=== PATIENT | male | born 1980 | race Caucasian/White ===

== ENCOUNTER 2024-01-26 09:16 | Inpatient (IN) | payer OTHER ==
--- NOTE | 2024-01-26 09:39 | ED ---
Male Urogenital HPI - General Chief complaint: Urogenital Stated complaint: Urogenital Time Seen by Provider: 01/26/24 09:23 Source: patient, RN notes reviewed Mode of arrival: wheelchair Limitations: no limitations - History of Present Illness Initial comments: This is a 43 year old male who presents to the emergency department for urinary symptoms. Reports urgency and burning with urination. He did a telehealth appointment and was started on Bactrim. States that he finished his course of Bactrim 6 days ago. He felt better when he was on the Bactrim, however since finishing it symptoms have gotten much worse. Today when he woke up he had blood in his urine. He has generalized abdominal pain and lower back discomfort. Denies any history of UTIs prior to this one. Denies any history of kidney stones. Denies any fevers/chills or nausea/vomiting. - Related Data Home Medications Medication Instructions Recorded Confirmed No Known Home Medications 01/26/24 01/26/24 Allergies Allergy/AdvReac Type Severity Reaction Status Date / Time No Known Allergies Allergy Verified 01/26/24 11:24 Review of Systems ROS Statement: Those systems with pertinent positive or pertinent negative responses have been documented in the HPI. ROS Other: All systems not noted in ROS Statement are negative. Past Medical History Past Medical History: No Reported History Past Surgical History: No Surgical Hx Reported Smoking Status: Never smoker Past Alcohol Use History: Occasional Past Drug Use History: Marijuana - Past Family History Father Family Medical History: Cancer, Diabetes Mellitus Additional Family Medical History / Comment(s): prostate cancer General Exam Limitations: no limitations General appearance: alert, in no apparent distress Head exam: Present: atraumatic, normocephalic, normal inspection Respiratory exam: Present: normal lung sounds bilaterally. Absent: respiratory distress, wheezes, rales, rhonchi, stridor Cardiovascular Exam: Present: regular rate, normal rhythm, normal heart sounds. Absent: systolic murmur, diastolic murmur, rubs, gallop, clicks GI/Abdominal exam: Present: soft, tenderness (Lower abdomen), normal bowel sounds. Absent: distended Back exam: Present: CVA tenderness (R), CVA tenderness (L) Neurological exam: Present: alert, oriented X3, CN II-XII intact Psychiatric exam: Present: normal affect, normal mood Skin exam: Present: warm, dry, intact, normal color. Absent: rash Course Vital Signs 01/26/24 01/26/24 01/26/24 09:18 10:15 11:15 Temperature 98.4 F 102.9 F H 100.6 F H Pulse Rate 99 103 H Respiratory 20 19 Rate Blood Pressure 136/82 138/79 O2 Sat by Pulse 100 100 Oximetry 01/26/24 13:16 Temperature 98.9 F Pulse Rate 89 Respiratory 18 Rate Blood Pressure 115/77 O2 Sat by Pulse 99 Oximetry Medical Decision Making - Medical Decision Making This is a 43 year old male who presents to the emergency department for urinary symptoms. Was pt. sent in by a medical professional or institution? @ -No Did you speak to anyone other than the patient for history? @ -No Did you review nursing and triage notes? @ -Yes, and I agree, it is accurate with regards to the patient's symptoms. Were old charts reviewed? @ -No Differential Diagnosis? @ -UTI, STI, pyelonephritis, kidney stone, this is not meant to be an all- inclusive list. EKG interpreted by me (3pts min.)? @ -Not obtained X-rays interpreted by me (1pt min.)? @ -Not obtained CT interpreted by me (1pt min.)? @ -CT scan of the abdomen and pelvis obtained. My interpretation identifies no evidence of a ureteral calculus. U/S interpreted by me (1pt. min.)? @ -Not obtained What testing was considered but not performed? (CT, X-rays, U/S, labs)? Why? @ -None What meds were considered but not given? Why? @ -None Did you discuss the management of the patient with other professionals? @ -Yes, Dr. Mark, who accepts the patient for admission Did you reconcile home meds? @ -Yes Was smoking cessation discussed for >3mins.? @ -No Was critical care preformed (if so, how long)? @ -No Were there social determinants of health that impacted care today? How? (H omelessness, low income, unemployed, alcoholism, drug addiction, transportation, low edu. Level, literacy, decrease access to med. care, half-way, rehab)? @ -No Was there de-escalation of care discussed even if they declined? (Discuss DNR or withdrawal of care, Hospice)? @ -No What co-morbidities impacted this encounter? (DM, HTN, Smoking, COPD, CAD, Cancer, CVA, Hep., AIDS, mental health diagnosis, sleep apnea, morbid obesity)? @ -None Was patient admitted / discharged? @ -Admitted. Lab work demonstrates leukocytosis with a white blood cell count of 16.7. Urinalysis consistent with infection and urine was sent for culture. Blood culture ordered as well. Patient febrile with a temperature of 102.[address] scan of the abdomen and pelvis obtained demonstrating concern for gas-forming cystitis/hemorrhagic cystitis. He also has focal wall thickening of the superior left lateral aspect of the urinary bladder. Cystoscopy is recommended to rule out malignancy. No obstructing calculus is identified. Given concern for emphysematous cystitis, patient was admitted to medicine for further management. He was given a 2 L of fluids and started on maintenance IV fluids. 2 g of Rocephin administered. Consult placed for infectious disease and urology. Case discussed with ED attending Dr. Luevano. Undiagnosed new problem with uncertain prognosis? @ -None Drug Therapy requiring intensive monitoring for toxicity (Heparin, Nitro, Insulin, Cardizem)? @ -None Were any procedures done? @ -None Diagnosis/symptom? @ -Emphysematous cystitis Acute, or Chronic, or Acute on Chronic? @ -Acute Uncomplicated (without systemic symptoms) or Complicated (systemic symptoms)? @ -Complicated Side effects of treatment? @ -None Exacerbation, Progression, or Severe Exacerbation] @ -Not applicable Poses a threat to life or bodily function? @ -Yes, can lead to septic shock and - Lab Data Result diagrams: 01/26/24 10:19 01/26/24 10:19 Lab Results 01/26/24 01/26/24 01/26/24 Range/Units 10:19 10:19 10:19 WBC 16.7 H (3.8-10.6) k/uL RBC 4.21 L (4.30-5.90) m/uL Hgb 12.9 L (13.0-17.5) gm/dL Hct 37.7 L (39.0-53.0) % MCV 89.6 (80.0-100.0) fL MCH 30.7 (25.0-35.0) pg MCHC 34.2 (31.0-37.0) g/dL RDW 13.2 (11.5-15.5) % Plt Count 211 (150-450) k/uL MPV 7.6 Neutrophils % 92 % Lymphocytes % 3 % Monocytes % 3 % Eosinophils % 1 % Basophils % 0 % Neutrophils # 15.4 H (1.3-7.7) k/uL Lymphocytes # 0.6 L (1.0-4.8) k/uL Monocytes # 0.5 (0-1.0) k/uL Eosinophils # 0.1 (0-0.7) k/uL Basophils # 0.0 (0-0.2) k/uL Sodium 132 L (137-145) mmol/L Potassium 3.8 (3.5-5.1) mmol/L Chloride 100 (98-107) mmol/L Carbon Dioxide 26 (22-30) mmol/L Anion Gap 6 mmol/L BUN 10 (9-20) mg/dL Creatinine 0.74 (0.66-1.25) mg/dL Est GFR (CKD-EPI)AfAm >90 (>60 ml/min/1.73 sqM) Est GFR (CKD-EPI)NonAf >90 (>60 ml/min/1.73 sqM) Glucose 120 H (74-99) mg/dL Plasma Lactic Acid Hari (0.7-2.0) mmol/L Calcium 9.4 (8.4-10.2) mg/dL Total Bilirubin 1.3 (0.2-1.3) mg/dL AST 26 (17-59) U/L ALT 26 (4-49) U/L Alkaline Phosphatase 71 (38-126) U/L C-Reactive Protein (<1.0) mg/dL Total Protein 7.0 (6.3-8.2) g/dL Albumin 4.1 (3.5-5.0) g/dL Urine Color Yellow Urine Appearance Turbid (Clear) Urine pH 8.5 H (5.0-8.0) Ur Specific [place] 1.021 (1.001-1.035) Urine Protein 3+ H (Negative) Urine Glucose (UA) Negative (Negative) Urine Ketones 3+ H (Negative) Urine Blood Large H (Negative) Urine Nitrite Negative (Negative) Urine Bilirubin Negative (Negative) Urine Urobilinogen <2.0 (<2.0) mg/dL Ur Leukocyte Esterase Large H (Negative) Urine RBC >182 H (0-5) /hpf Urine WBC >182 H (0-5) /hpf Urine WBC Clumps Many H (None) /hpf Urine Bacteria Many H (None) /hpf 01/26/24 01/26/24 Range/Units 10:19 10:19 WBC (3.8-10.6) k/uL RBC (4.30-5.90) m/uL Hgb (13.0-17.5) gm/dL Hct (39.0-53.0) % MCV (80.0-100.0) fL MCH (25.0-35.0) pg MCHC (31.0-37.0) g/dL RDW (11.5-15.5) % Plt Count (150-450) k/uL MPV Neutrophils % % Lymphocytes % % Monocytes % % Eosinophils % % Basophils % % Neutrophils # (1.3-7.7) k/uL Lymphocytes # (1.0-4.8) k/uL Monocytes # (0-1.0) k/uL Eosinophils # (0-0.7) k/uL Basophils # (0-0.2) k/uL Sodium (137-145) mmol/L Potassium (3.5-5.1) mmol/L Chloride (98-107) mmol/L Carbon Dioxide (22-30) mmol/L Anion Gap mmol/L BUN (9-20) mg/dL Creatinine (0.66-1.25) mg/dL Est GFR (CKD-EPI)AfAm (>60 ml/min/1.73 sqM) Est GFR (CKD-EPI)NonAf (>60 ml/min/1.73 sqM) Glucose (74-99) mg/dL Plasma Lactic Acid Hari 1.3 (0.7-2.0) mmol/L Calcium (8.4-10.2) mg/dL Total Bilirubin (0.2-1.3) mg/dL AST (17-59) U/L ALT (4-49) U/L Alkaline Phosphatase (38-126) U/L C-Reactive Protein 8.2 H (<1.0) mg/dL Total Protein (6.3-8.2) g/dL Albumin (3.5-5.0) g/dL Urine Color Urine Appearance (Clear) Urine pH (5.0-8.0) Ur Specific [place] (1.001-1.035) Urine Protein (Negative) Urine Glucose (UA) (Negative) Urine Ketones (Negative) Urine Blood (Negative) Urine Nitrite (Negative) Urine Bilirubin (Negative) Urine Urobilinogen (<2.0) mg/dL Ur Leukocyte Esterase (Negative) Urine RBC (0-5) /hpf Urine WBC (0-5) /hpf Urine WBC Clumps (None) /hpf Urine Bacteria (None) /hpf - Radiology Data Radiology results: report reviewed, image reviewed Disposition Clinical Impression: Emphysematous cystitis Disposition: ADMITTED IP TO THIS HOSP
[2024-01-26] MEDS: SODIUM CHLORIDE 0.9% 1,000 ML IV STA ×3 (10:20→11:13)
[2024-01-26] MEDS: KETOROLAC 15 MG/ML 1 ML VIAL IVP STA (10:21)
[2024-01-26] MEDS: PHENAZOPYRIDINE 200 MG TAB PO STA (10:23)
[2024-01-26] MEDS: ACETAMINOPHEN TAB 500 MG TAB PO STA (10:27)
--- NOTE | 2024-01-26 10:32 | CT ---
EXAMINATION TYPE: CT abdomen pelvis wo con DATE OF EXAM: 01/26/2024 9:54 AM COMPARISON: CT abdomen pelvis most recent from CLINICAL INDICATION: Male, 43 years old with history of flank pain, hematuria; RT FLANK PAIN/GROSS HE MATURIA TECHNIQUE: Axial CT abdomen pelvis wo con;Sagittal and coronal reformats were created on a separate workstation. Contrast used: mL of , (none if empty) Oral contrast used: without Oral Contrast (none if empty) CT DLP: 422 mGycm, Automated exposure control for dose reduction was used. FINDINGS: LOWER CHEST: Unremarkable ABDOMEN LIVER: Unremarkable GALLBLADDER AND BILE DUCTS: Unremarkable. PANCREAS: Unremarkable. SPLEEN: Unremarkable. ADRENAL GLANDS: Unremarkable. KIDNEYS AND URETERS: No evidence of hydronephrosis or renal calculus. The ureters are unremarkable. PELVIS BLADDER: There is gas in the nondependent portion of the bladder lumen with hazy appearance of the bl adder wall and surrounding fat. There is focal thickening of the superior left lateral bladder series 202 image 46r measuring up to 19 mm in thickness and extending approximately 54 mm. REPRODUCTIVE: Unremarkable. ABDOMEN & PELVIS STOMACH AND BOWEL: No evidence of bowel obstruction. The appendix is normal. PERITONEUM/RETROPERITONEUM: No evidence of pneumoperitoneum or free fluid. VASCULATURE: No evidence of aortic aneurysm. MUSCULOSKELETAL: No acute osseous abnormalities LYMPH NODES: No gross evidence for lymphadenopathy. SOFT TISSUE/ABDOMINAL WALL: Unremarkable IMPRESSION: 1. Haziness around the urinary bladder with bladder wall prominence and gas in the bladder lumen. Co rrelate for gas-forming cystitis/hemorrhagic cystitis. 2. Focal wall thickening of the superior left lateral aspect of the urinary bladder series 201 image 46 evaluation cystoscopy recommended to rule out underlying malignancy. 3. Fat stranding changes also around adjacent: The urinary bladder possibly secondary to findings wi thin the urinary bladder. 4. No evidence for obstructing calculus. No significant dilation of the renal collecting systems. 5. Normal-appearing appendix. [facility], , 01/26/2024 10:29 AM
[2024-01-26 10:42] LABS: Basophils % (A) 0 %; Eosinophils # (A) 0.1 k/uL (0-0.7); Eosinophils % (A) 1 %; HCT 37.7 % (39.0-53.0); HGB 12.9 gm/dL (13.0-17.5); Lymphocytes # (A) 0.6 k/uL (1.0-4.8); Lymphocytes % (A) 3 %; MCH 30.7 pg (25.0-35.0); MCHC 34.2 g/dL (31.0-37.0); MCV 89.6 fL (80.0-100.0); Mean Platelet Volume 7.6; Monocytes # (A) 0.5 k/uL (0-1.0); Monocytes % (A) 3 %; Neutrophils # (A) 15.4 k/uL (1.3-7.7); Neutrophils % (A) 92 %; Platelet Count 211 k/uL (150-450); RBC 4.21 m/uL (4.30-5.90); RDW 13.2 % (11.5-15.5); WBC 16.7 k/uL (3.8-10.6)
[2024-01-26 10:57] LABS: ALT 26 U/L (4-49); AST 26 U/L (17-59); African American GFR (CKD) >90 (>60 ml/min/1.73 sqM); Albumin 4.1 g/dL (3.5-5.0); Alkaline Phosphatase 71 U/L (38-126); Anion Gap 6 mmol/L; Blood Urea Nitrogen 10 mg/dL (9-20); Calcium 9.4 mg/dL (8.4-10.2); Carbon Dioxide 26 mmol/L (22-30); Chloride 100 mmol/L (98-107); Glucose 120 mg/dL (74-99); Non-African American GFR(CKD) >90 (>60 ml/min/1.73 sqM); Potassium 3.8 mmol/L (3.5-5.1); Sodium 132 mmol/L (137-145); Total Bilirubin 1.3 mg/dL (0.2-1.3)
[2024-01-26 11:05] LABS: Appearance,Urine Turbid (Clear); Bacteria,Urine Many /hpf; Bilirubin,Urine Negative (Negative); Blood,Urine Large (Negative); Color,Urine Yellow; Glucose,Urine (UA) Negative (Negative); Ketones,Urine 3+ (Negative); Leukocyte Esterase,Urine Large (Negative); Nitrite,Urine Negative (Negative); PH, Urine 8.5 (5.0-8.0); Protein,Urine 3+ (Negative); RBC,Urine >182 /hpf (0-5); Specific Gravity,Urine 1.021 (1.001-1.035); Urobilinogen,Urine <2.0 mg/dL (<2.0); WBC,Urine >182 /hpf (0-5)
[2024-01-26] MEDS ORDERED: NALOXONE 0.4 MG/ML 1 ML VIAL IV PRN (11:16)
--- NOTE | 2024-01-26 13:36 | P.HPIM ---
History of Present Illness H&P Date: 01/26/24 History of present illness; patient is a 43-year-old gentleman with no significant past medical history who presents the ER because of burning pain while urination. Patient states that he was all right 1 month back when he started noticing that he was having increased frequency of urination and burning while peeing. Patient was also noticing increasing odor in his urine. Patient also complained of hematuria. Patient denies any fever or chills at the time. Patient does not have a PCP and did a telemedicine visit at which time he was prescribed Bactrim and completed the course for 1 week. Following that patient stated that for the last 3 days he noticed that once again he was having burning pain while urination. Patient also complaining of hematuria again. There was also complaint of fever and chills at home. There was no complaint of nausea or vomiting. Denies any abdominal pain. There was no complaint of weight loss. Because of these symptoms patient presented the ER Initial lab work done in the ER showed WBC 7.7, hemoglobin 12.9, sodium 132, potassium 3.8, BUN 10, creatinine 0.74, glucose 120, lactate 1.3, AST 26, ALT 26, UA showed large amount of blood, urine WBC greater than 182, large amount leukocyte esterase CT abdominal pelvis done showed haziness around the urinary bladder with bladder wall prominence and gas in the bladder lumen for gas-forming cystitis/hem orrhagic cystitis Patient admitted to internal medicine service REVIEW OF SYSTEMS: CONSTITUTIONAL: As mentioned above HEENT: No recent visual problems or hearing problems. Denied any sore throat. CARDIOVASCULAR: No chest pain, orthopnea, PND, no palpitations, no syncope. PULMONARY: No shortness of breath, no cough, no hemoptysis. GASTROINTESTINAL: No diarrhea, no nausea, no vomiting, no abdominal pain. NEUROLOGICAL: No headaches, no weakness, no numbness. HEMATOLOGICAL: Denies any bleeding or petechiae. GENITOURINARY: As mentioned above MUSCULOSKELETAL/RHEUMATOLOGICAL: Denies any joint pain, swelling, or any muscle pain. ENDOCRINE: Denies any polyuria or polydipsia. The rest of the 14-point review of systems is negative. PHYSICAL EXAMINATION: GENERAL: The patient is alert and oriented x3, not in any acute distress. Well developed, well nourished. HEENT: Pupils are round and equally reacting to light. EOMI. No scleral icterus. No conjunctival pallor. Normocephalic, atraumatic. No pharyngeal erythema. No thyromegaly. CARDIOVASCULAR: S1 and S2 present. No murmurs, rubs, or gallops. PULMONARY: Chest is clear to auscultation, no wheezing or crackles. ABDOMEN: Soft, nontender, nondistended, normoactive bowel sounds. No palpable organomegaly. MUSCULOSKELETAL: No joint swelling or deformity. EXTREMITIES: No cyanosis, clubbing, or pedal edema. NEUROLOGICAL: Gross neurological examination did not reveal any focal deficits. SKIN: No rashes. Assessment and plan Sepsis Acute hemorrhagic cystitis Monitor vital signs Monitor CBC Monitor CMP Ordered blood cultures Ordered urine culture Ordered CRP, ESR, Pro-Girma, Ordered IV fluids Ordered IV Rocephin Consult ID Consult urology Labs and medication were reviewed.. Continue same treatment. Continue with symptomatic treatment. Resume home medication. Monitor labs and vitals. DVT and GI prophylaxis. Further recommendations as per clinical course of the patient Dictation was produced using [employer] dictation software. please excuse any grammatical, word or spelling errors. Past Medical History Past Medical History: No Reported History Past Surgical History: No Surgical Hx Reported Smoking Status: Never smoker Past Alcohol Use History: Occasional Past Drug Use History: Marijuana Medications and Allergies Home Medications Medication Instructions Recorded Confirmed Type No Known Home Medications 01/26/24 01/26/24 History Allergies Allergy/AdvReac Type Severity Reaction Status Date / Time No Known Allergies Allergy Verified 01/26/24 11:24 Physical Exam Vitals: Vital Signs Temp Pulse Resp BP Pulse Ox 01/26/24 13:16 98.9 F 89 18 115/77 99 01/26/24 11:15 100.6 F H 01/26/24 10:15 102.9 F H 103 H 19 138/79 100 01/26/24 09:18 98.4 F 99 20 136/82 100 Intake and Output 01/25/24 01/26/24 01/26/24 22:59 06:59 14:59 Other: Weight 65.771 kg Results CBC & Chem 7: 01/26/24 10:19 01/26/24 10:19 Labs: Abnormal Lab Results - Last 24 Hours (Table) 12/15/24 12/15/24 12/15/24 Range/Units 10:19 10:19 10:19 WBC 16.7 H (3.8-10.6) k/uL RBC 4.21 L (4.30-5.90) m/uL Hgb 12.9 L (13.0-17.5) gm/dL Hct 37.7 L (39.0-53.0) % Neutrophils # 15.4 H (1.3-7.7) k/uL Lymphocytes # 0.6 L (1.0-4.8) k/uL Sodium 132 L (137-145) mmol/L Glucose 120 H (74-99) mg/dL Urine pH 8.5 H (5.0-8.0) Urine Protein 3+ H (Negative) Urine Ketones 3+ H (Negative) Urine Blood Large H (Negative) Ur Leukocyte Esterase Large H (Negative) Urine RBC >182 H (0-5) /hpf Urine WBC >182 H (0-5) /hpf Urine WBC Clumps Many H (None) /hpf Urine Bacteria Many H (None) /hpf
[2024-01-26] MEDS: HYDROcodone/APAP 5-325MG 1 EACH TAB PO PRN (20:09)
[2024-01-26] MEDS: KETOROLAC 15 MG/ML 1 ML VIAL IVP PRN (22:08)
[2024-01-27] MEDS: PANTOPRAZOLE 40 MG/10 ML VIAL IV SCH (08:35)
[2024-01-27 08:49] LABS: ALT 38 U/L (10-49); AST 33 U/L (14-35); Albumin 3.5 g/dL (3.8-4.9); Albumin/Globulin Ratio 1.46 Ratio (1.60-3.17); Alkaline Phosphatase 76 U/L (41-126); BUN/Creat Ratio 11.29 Ratio (12.00-20.00); Blood Urea Nitrogen 7.9 mg/dL (9.0-27.0); Calcium 8.6 mg/dL (8.7-10.3); Carbon Dioxide 22.4 mmol/L (21.6-31.8); Chloride 103 mmol/L (96-109); Globulin 2.4 g/dL (1.6-3.3); Glucose 112 mg/dL (70-110); Sodium 134 mmol/L (135-145); Total Bilirubin 0.8 mg/dL (0.3-1.2); Total Protein 5.9 g/dL (6.2-8.2)
[2024-01-27] MEDS: MORPHINE SULFATE 4 MG/ML SYRINGE IV PRN (08:50)
--- NOTE | 2024-01-27 08:57 | P.CONS ---
History of Present Illness - Reason for Consult Consult date: 01/26/24 Emphysematous cystitis, sepsis Requesting physician: Randy Mark - Chief Complaint Abdominal pain hematuria x 1 day - History of Present Illness Patient is a 43-year-old male with no significant past medical history presenting to the hospital for evaluation of lower abdominal pain and blood in the urine, patient mention he did have symptoms going on with the burning of urination that has been almost for about a month about a week ago he did have a telehealth visit and the patient was started on Bactrim DS which she took for about a week patient mention he completed the Bactrim about 5 days ago and noticed to having increasing pain to the lower abdominal yesterday describes the pain to be mostly sharp moderate intense without radiation he did have a burning of the urine and also develop blood in the urine for the patient presented to the hospital patient on presentation to the hospital did have a temperature of 102.9 F patient was tachycardic but not hypotensive or hypoxic he did have white count of 16.7 with a left shift creatinine 0.74 electrolytes are normal liver enzymes are normal urine has been positive with large leukocyte esterase more than 1-2 WBC cultures are currently pending patient did have a abdominal pelvis CT we did shows haziness around the urinary bladder with bladder wall prominence and gas in the bladder correlate for hemorrhagic cystitis and there was concern for some focal wall thickening of the superior left lateral aspect of the urinary bladder no evidence of any obstructing calculus normal-appearing appendix patient was started on Rocephin infectious disease was consulted for further management of antibiotic therapy Review of Systems Positive point and negatives has been mentioned in the HPI, complete review of systems was performed and all other systems are negative Past Medical History Past Medical History: No Reported History Past Surgical History: No Surgical Hx Reported Smoking Status: Never smoker Past Alcohol Use History: Occasional Past Drug Use History: Marijuana - Past Family History Father Family Medical History: Cancer, Diabetes Mellitus Additional Family Medical History / Comment(s): prostate cancer Medications and Allergies Home Medications Medication Instructions Recorded Confirmed Type HYDROcodone/APAP 5-325MG [[place] 1 tab PO Q6HR PRN 3 Days #12 tab 02/06/24 Rx 5-325] Acetaminophen Tab [Tylenol] 650 mg PO Q6HR PRN tab 02/07/24 Rx Ciprofloxacin HCl [Cipro] 750 mg PO BID 14 Days #28 tab 02/07/24 Rx Metoclopramide HCl [Reglan] 5 mg PO TID #60 tablet 02/07/24 Rx Sennosides [Senokot] 8.6 mg PO BID #60 tab 02/07/24 Rx Simethicone 40 mg/0.6 ml Drops 80 mg PO QID #7 ml 02/07/24 Rx [Mylicon Drops] metroNIDAZOLE [Flagyl] 500 mg PO TID 14 Days #42 tab 02/07/24 Rx Allergies Allergy/AdvReac Type Severity Reaction Status Date / Time No Known Allergies Allergy Verified 01/26/24 11:24 Physical Exam Vitals: Vital Signs Temp Pulse Resp BP Pulse Ox 01/26/24 11:15 100.6 F H 01/26/24 10:15 102.9 F H 103 H 19 138/79 100 01/26/24 09:18 98.4 F 99 20 136/82 100 Intake and Output 01/25/24 01/26/24 01/26/24 22:59 06:59 14:59 Other: Weight 65.771 kg GENERAL DESCRIPTION: Middle-aged male lying in bed, no distress. No tachypnea or accessory muscle of respiration use. HEENT: Shows Pallor , no scleral icterus. Oral mucous membrane is dry. No pharyngeal erythema or thrush NECK: Trachea central, no thyromegaly. LUNGS: Unlabored breathing. Clear to auscultation anteriorly. No wheeze or crackle. HEART: S1, S2, regular rate and rhythm. No loud murmur ABDOMEN: Soft, suprapubic tenderness EXTREMITIES: No edema of feet. SKIN: No rash, no masses palpable. NEUROLOGICAL: The patient is awake, alert, oriented x3, mood and affect normal. Results CBC & Chem 7: 02/07/24 04:09 02/06/24 05:54 Labs: Abnormal Lab Results - Last 24 Hours (Table) 01/26/24 01/26/24 01/26/24 Range/Units 10:19 10:19 10:19 WBC 16.7 H (3.8-10.6) k/uL RBC 4.21 L (4.30-5.90) m/uL Hgb 12.9 L (13.0-17.5) gm/dL Hct 37.7 L (39.0-53.0) % Neutrophils # 15.4 H (1.3-7.7) k/uL Lymphocytes # 0.6 L (1.0-4.8) k/uL Sodium 132 L (137-145) mmol/L Glucose 120 H (74-99) mg/dL Urine pH 8.5 H (5.0-8.0) Urine Protein 3+ H (Negative) Urine Ketones 3+ H (Negative) Urine Blood Large H (Negative) Ur Leukocyte Esterase Large H (Negative) Urine RBC >182 H (0-5) /hpf Urine WBC >182 H (0-5) /hpf Urine WBC Clumps Many H (None) /hpf Urine Bacteria Many H (None) /hpf Assessment and Plan (1) Sepsis Status: Acute Code(s): A41.9 - SEPSIS, UNSPECIFIED ORGANISM SNOMED Code(s): 63130079 (2) Emphysematous cystitis Status: Acute Code(s): N30.80 - OTHER CYSTITIS WITHOUT HEMATURIA SNOMED Code(s): 69272105 Plan: 1patient presented to hospital with sepsis in this patient who did have fever tachycardia elevated white count meeting criteria for SIRS source is emphysematous cystitis and likely from enteric gram-negative pathogen. 2patient will be treated with Rocephin 2 g daily while waiting for the culture to finalize 3await urology evaluation and possible need for cystoscopy on the basis of abnormality seen on the CT We will follow on clinical condition and cultures to further adjust medication if needed Thank you for this consultation we will follow the patient along with you Dictation was produced using [employer] dictation software. please excuse any grammatical, word or spelling errors. Time with Patient: Greater than 30
--- NOTE | 2024-01-27 09:38 | P.GSCN ---
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 He came to the er last night with dysuria and hematuria. He had been on ab , bactrim, for a "uti" treated via telehealth several days ago. He has been off ab for several days. His urine looks inflammed. His wbc at 16k. He is afebrile. His testicles are tender. He has never had a uti or stone before. He has no bowel issues. He had a ct scan that shows air in the bladder. there are no stones. There is no hydronephrosis Review of Systems All systems: negative - Constitutional Denies fever, Denies weight loss - EENT Eyes: denies blurred vision Ears, nose, mouth and throat: Denies dysphagia - Cardiovascular Denies chest pain, Denies shortness of breath - Respiratory Denies cough, Denies 7 - Gastrointestinal Reports as per HPI - Genitourinary Denies dysuria, Denies hematuria - Integumentary Denies rash, Denies unusual bruising - Neurological Denies headaches, Denies syncope - Hematologic/Lymphatic Denies easy bleeding, Denies easy bruising Past Medical History Past Medical History: No Reported History History of Any Multi-Drug Resistant Organisms: None Reported Past Surgical History: No Surgical Hx Reported Past Anesthesia/Blood Transfusion Reactions: No Reported Reaction Additional Past Anesthesia/Blood Transfusion Reaction / Comm: no past surgery or blood transfusion Smoking Status: Never smoker Past Alcohol Use History: Occasional Past Drug Use History: Marijuana - Past Family History Father Family Medical History: Cancer, Diabetes Mellitus Additional Family Medical History / Comment(s): prostate cancer Medications and Allergies Home Medications Medication Instructions Recorded Confirmed Type No Known Home Medications 01/26/24 01/26/24 History Allergies Allergy/AdvReac Type Severity Reaction Status Date / Time No Known Allergies Allergy Verified 01/26/24 11:24 Surgical - Exam Vital Signs Temp Pulse Resp BP Pulse Ox 98.4 F 99 20 136/82 100 01/26/24 09:18 01/26/24 09:18 01/26/24 09:18 01/26/24 09:18 01/26/24 09:18 - General well developed, well nourished, no distress - Eyes normal ocular movement, no icteric - ENT no hearing loss, no congestion - Neck no masses, trachea midline - Respiratory normal respiratory effort, clear to auscultation - Abdomen Abdomen: soft, non tender, no guarding, no rigid, no rebound - Genitourinary bilateral epididymal induration and tenderness - Integumentary no rash, no abnormal pigmentation - Neurologic no disoriented, no combative - Psychiatric oriented to time, oriented to person, oriented to place, speech is normal, memory intact Results - Labs 01/26/24 10:19 01/27/24 05:23 Abnormal Lab Results - Last 24 Hours (Table) 01/26/24 01/26/24 01/26/24 Range/Units 10:19 10:19 10:19 WBC 16.7 H (3.8-10.6) k/uL RBC 4.21 L (4.30-5.90) m/uL Hgb 12.9 L (13.0-17.5) gm/dL Hct 37.7 L (39.0-53.0) % Neutrophils # 15.4 H (1.3-7.7) k/uL Lymphocytes # 0.6 L (1.0-4.8) k/uL ESR (0-15) mm/Hr Sodium 132 L (137-145) mmol/L Glucose 120 H (74-99) mg/dL C-Reactive Protein (<1.0) mg/dL Urine pH 8.5 H (5.0-8.0) Urine Protein 3+ H (Negative) Urine Ketones 3+ H (Negative) Urine Blood Large H (Negative) Ur Leukocyte Esterase Large H (Negative) Urine RBC >182 H (0-5) /hpf Urine WBC >182 H (0-5) /hpf Urine WBC Clumps Many H (None) /hpf Urine Bacteria Many H (None) /hpf 01/26/24 01/26/24 Range/Units 10:19 10:19 WBC (3.8-10.6) k/uL RBC (4.30-5.90) m/uL Hgb (13.0-17.5) gm/dL Hct (39.0-53.0) % Neutrophils # (1.3-7.7) k/uL Lymphocytes # (1.0-4.8) k/uL ESR 27 H (0-15) mm/Hr Sodium (137-145) mmol/L Glucose (74-99) mg/dL C-Reactive Protein 8.2 H (<1.0) mg/dL Urine pH (5.0-8.0) Urine Protein (Negative) Urine Ketones (Negative) Urine Blood (Negative) Ur Leukocyte Esterase (Negative) Urine RBC (0-5) /hpf Urine WBC (0-5) /hpf Urine WBC Clumps (None) /hpf Urine Bacteria (None) /hpf Diabetes panel 01/26/24 Range/Units 10:19 Sodium 132 L (137-145) mmol/L Potassium 3.8 (3.5-5.1) mmol/L Chloride 100 (98-107) mmol/L Carbon Dioxide 26 (22-30) mmol/L BUN 10 (9-20) mg/dL Creatinine 0.74 (0.66-1.25) mg/dL Glucose 120 H (74-99) mg/dL Calcium 9.4 (8.4-10.2) mg/dL AST 26 (17-59) U/L ALT 26 (4-49) U/L Alkaline Phosphatase 71 (38-126) U/L Total Protein 7.0 (6.3-8.2) g/dL Albumin 4.1 (3.5-5.0) g/dL Calcium panel 01/26/24 Range/Units 10:19 Calcium 9.4 (8.4-10.2) mg/dL Albumin 4.1 (3.5-5.0) g/dL Pituitary panel 01/26/24 Range/Units 10:19 Sodium 132 L (137-145) mmol/L Potassium 3.8 (3.5-5.1) mmol/L Chloride 100 (98-107) mmol/L Carbon Dioxide 26 (22-30) mmol/L BUN 10 (9-20) mg/dL Creatinine 0.74 (0.66-1.25) mg/dL Glucose 120 H (74-99) mg/dL Calcium 9.4 (8.4-10.2) mg/dL Adrenal panel 01/26/24 Range/Units 10:19 Sodium 132 L (137-145) mmol/L Potassium 3.8 (3.5-5.1) mmol/L Chloride 100 (98-107) mmol/L Carbon Dioxide 26 (22-30) mmol/L BUN 10 (9-20) mg/dL Creatinine 0.74 (0.66-1.25) mg/dL Glucose 120 H (74-99) mg/dL Calcium 9.4 (8.4-10.2) mg/dL Total Bilirubin 1.3 (0.2-1.3) mg/dL AST 26 (17-59) U/L ALT 26 (4-49) U/L Alkaline Phosphatase 71 (38-126) U/L Total Protein 7.0 (6.3-8.2) g/dL Albumin 4.1 (3.5-5.0) g/dL - Imaging CT scan - abdomen: report reviewed, image reviewed CT scan - pelvis: report reviewed, image reviewed Assessment and Plan Assessment: Impression: hemorrhagic cystitis, emphysematous cystitis. probable acute prostatitis and bilateral epididymitis. Recommedations. THe patient should be on ab for at lest 1 mos. He will need cysto as an op as the future. He also should have a gi evaluation with possible colonoscopy in the future. He should have ice to the testicles with scrotal support. I will follow Time with Patient: Greater than 30
[2024-01-27 10:32] LABS: HCT 34.5 % (39.6-50.0); HGB 11.4 g/dL (13.0-17.0); MCH 30.2 pg (27.0-32.0); MCV 91.3 FL (80.0-97.0); Mean Platelet Volume 10.9 FL (9.5-12.2); NRBC Per 100 WBC 0 X 10*3/uL (0.00-0.01); Platelet Count 171 X 10*3/uL (140-440); RBC 3.78 X 10*6/uL (4.40-5.60); RDW 12.9 % (11.5-14.5); WBC 15.76 X 10*3/uL (4.50-10.00)
[2024-01-27] MEDS: IBUPROFEN 400 MG TAB PO PRN (13:12)
[2024-01-27 16:57] VITALS: BMI 22.0
--- NOTE | 2024-01-27 21:01 | P.PN ---
Subjective Progress Note Date: 01/27/24 Principal diagnosis: Reason for follow-up is sepsis/UTI Patient is a 43-year-old male with no significant past medical history presenting to the hospital for evaluation of lower abdominal pain and blood in the urine, patient mention he did have symptoms going on with the burning of urination that has been almost for about a month with acute worsening over a day or 2 before presented to the hospital abdominal pain and hematuria patient was noted to be septic secondary to urinary source. On today's evaluation that is 01/27/2024, patient did have resolution of his f ever and patient has been afebrile this morning, patient is breathing comfortably and is currently on room air, patient denies having any significant cough no chest pain, patient denies nausea vomiting or diarrhea lower abdominal pain slightly decreased no further hematuria. Patient white count is 15.76 creatinine 0.7 cultures are currently pending Objective - Vital Signs Vital signs: Vital Signs Temp 98.4 F 01/27/24 07:47 Pulse 101 H 01/27/24 07:47 Resp 17 01/27/24 07:47 BP 132/69 01/27/24 07:47 Pulse Ox 98 01/27/24 07:47 FiO2 Intake & Output 01/26/24 01/27/24 01/27/24 18:59 06:59 18:59 Intake Total 390 Output Total 150 Balance 390 -150 Weight 65.771 kg Intake: Intake, IV Titration 390 Amount Sodium Chloride 0.9% 1, 390 000 ml @ 130 mls/hr IV . Q7H42M STA Rx#:[id number] Output: Urine 150 Other: Voiding Method Toilet Toilet Urinal Urinal - Exam GENERAL DESCRIPTION: Middle-age male lying in bed in no distress RESPIRATORY SYSTEM: Unlabored breathing , decreased breath sounds at bases HEART: S1 S2 regular rate and rhythm , ABDOMEN: Soft , mild lower abdominal tenderness EXTREMITIES: No edema feet - Labs CBC & Chem 7: 01/27/24 05:23 01/27/24 05:23 Labs: Abnormal Lab Results - Last 24 Hours (Table) 01/26/24 01/26/24 01/26/24 Range/Units 10:19 10:19 10:19 WBC (4.50-10.00) X 10*3/uL RBC (4.40-5.60) X 10*6/uL Hgb (13.0-17.0) g/dL Hct (39.6-50.0) % ESR 27 H (0-15) mm/Hr Sodium (135-145) mmol/L BUN (9.0-27.0) mg/dL BUN/Creatinine Ratio (12.00-20.00) Ratio Glucose (70-110) mg/dL Calcium (8.7-10.3) mg/dL C-Reactive Protein 8.2 H (<1.0) mg/dL Total Protein (6.2-8.2) g/dL Albumin (3.8-4.9) g/dL Albumin/Globulin Ratio (1.60-3.17) Ratio Urine pH 8.5 H (5.0-8.0) Urine Protein 3+ H (Negative) Urine Ketones 3+ H (Negative) Urine Blood Large H (Negative) Ur Leukocyte Esterase Large H (Negative) Urine RBC >182 H (0-5) /hpf Urine WBC >182 H (0-5) /hpf Urine WBC Clumps Many H (None) /hpf Urine Bacteria Many H (None) /hpf 01/27/24 01/27/24 Range/Units 05:23 05:23 WBC 15.76 H (4.50-10.00) X 10*3/uL RBC 3.78 L (4.40-5.60) X 10*6/uL Hgb 11.4 L (13.0-17.0) g/dL Hct 34.5 L (39.6-50.0) % ESR (0-15) mm/Hr Sodium 134 L (135-145) mmol/L BUN 7.9 L (9.0-27.0) mg/dL BUN/Creatinine Ratio 11.29 L (12.00-20.00) Ratio Glucose 112 H (70-110) mg/dL Calcium 8.6 L (8.7-10.3) mg/dL C-Reactive Protein (<1.0) mg/dL Total Protein 5.9 L (6.2-8.2) g/dL Albumin 3.5 L (3.8-4.9) g/dL Albumin/Globulin Ratio 1.46 L (1.60-3.17) Ratio Urine pH (5.0-8.0) Urine Protein (Negative) Urine Ketones (Negative) Urine Blood (Negative) Ur Leukocyte Esterase (Negative) Urine RBC (0-5) /hpf Urine WBC (0-5) /hpf Urine WBC Clumps (None) /hpf Urine Bacteria (None) /hpf Assessment and Plan (1) Sepsis Current Visit: Yes Status: Acute Code(s): A41.9 - SEPSIS, UNSPECIFIED ORGANISM SNOMED Code(s): 95065894 (2) Emphysematous cystitis Current Visit: Yes Status: Acute Code(s): N30.80 - OTHER CYSTITIS WITHOUT HEMATURIA SNOMED Code(s): 25781647 Plan: 1patient presented to hospital with sepsis in this patient who did have fever tachycardia elevated white count meeting criteria for SIRS source is emphysematous cystitis and likely from enteric gram-negative pathogen. 2patient did have improvement in his fever pattern white count slightly trending down cultures are currently pending will continue the patient on Rocephin while waiting for the culture to finalize at the bedside multiple questions answered Dictation was produced using [employer] dictation software. please excuse any grammatical, word or spelling errors. Time with Patient: Less than 30
[2024-01-28] MEDS: ONDANSETRON 4 MG/2 ML VIAL IVP PRN (04:00)
[2024-01-28] MEDS: ALPRAZolam 0.25 MG TAB PO PRN (04:00)
[2024-01-28] MEDS: SODIUM CHLORIDE 0.9% 1,000 ML IV SCH (04:00)
--- NOTE | 2024-01-28 06:12 | P.PN ---
Subjective Progress Note Date: 01/27/24 History of present illness; patient is a 43-year-old gentleman with no significant past medical history who presents the ER because of burning pain while urination. Patient states that he was all right 1 month back when he started noticing that he was having increased frequency of urination and burning while peeing. Patient was also noticing increasing odor in his urine. Patient also complained of hematuria. Patient denies any fever or chills at the time. Patient does not have a PCP and did a telemedicine visit at which time he was prescribed Bactrim and completed the course for 1 week. Following that patient stated that for the last 3 days he noticed that once again he was having burning pain while urination. Patient also complaining of hematuria again. There was also complaint of fever and chills at home. There was no complaint of nausea or vomiting. Denies any abdominal pain. There was no complaint of weight loss. Because of these symptoms patient presented the ER Initial lab work done in the ER showed WBC 7.7, hemoglobin 12.9, sodium 132, potassium 3.8, BUN 10, creatinine 0.74, glucose 120, lactate 1.3, AST 26, ALT 26, UA showed large amount of blood, urine WBC greater than 182, large amount leukocyte esterase CT abdominal pelvis done showed haziness around the urinary bladder with bladder wall prominence and gas in the bladder lumen for gas-forming cystitis/hemorrh agic cystitis Patient admitted to internal medicine service 01/27/2024 Patient is admitted and seen in follow-up this morning continues with significant testicular pain and swelling with redness with urology and infectious disease following. Preliminary culture showing gram-negative bacilli and awaiting finalized cultures to determine discharge antibiotics. Patient to continue with icing the scrotal area and elevating as well as current pain regimen. Monitor for any fevers as patient has been continuously having low- grade temps. Will continue current regimen and await finalized cultures. Patient does not currently have a primary care provider as he is new to the area and will provide resources on discharge. Review of systems: Constitutional: No reports of fatigue, low-grade fever, occasional chills Cardiovascular: No reports of chest pain or palpitations Respiratory: No reports of shortness of breath or cough GI: No reports of nausea, vomiting, or diarrhea : No reports of dysuria or retention Neurovascular: No reports of weakness or numbness All medications have been reviewed PHYSICAL EXAMINATION: GENERAL: The patient is alert and oriented x3, not in any acute distress. Well developed, well nourished. HEENT: Pupils are round and equally reacting to light. EOMI. No scleral icterus. No conjunctival pallor. Normocephalic, atraumatic. No pharyngeal erythema. No thyromegaly. CARDIOVASCULAR: S1 and S2 present. No murmurs, rubs, or gallops. PULMONARY: Chest is clear to auscultation, no wheezing or crackles. ABDOMEN: Soft, nontender, nondistended, normoactive bowel sounds. No palpable organomegaly. MUSCULOSKELETAL: No joint swelling or deformity. EXTREMITIES: No cyanosis, clubbing, or pedal edema. NEUROLOGICAL: Gross neurological examination did not reveal any focal deficits. SKIN: No rashes. Assessment: Sepsis secondary to urinary tract infection, present on admission, preliminary culture showing gram-negative bacilli Acute hemorrhagic cystitis GI prophylaxis DVT prophylaxis Full code Plan: Patient is continued on IV antibiotics with infectious disease following and will await finalized cultures. Preliminary showing gram-negative bacilli Urology following and will need outpatient follow-up on discharge for further testing Continue to ice the scrotal area and elevate as tolerated as there continues to be significant redness, swelling, and discomfort Follow-up on repeat labs and replace electrolytes per protocol. Continue monitoring for fevers and use antipyretics as needed Encouraged increase activity as tolerated Will discuss with other consultations once cultures have finalized regarding discharge planning The impression and plan of care has been dictated by Jessica Rivera, Nurse Practitioner as directed. Dr. Virgen MD I have performed a history and examination and MDM of this patient, discussed the same with the dictator, and agree with the dictator's assessment and plan as written ,documented as a scribe. Based on total visit time, I have performed more than 50% of the visit. Objective - Vital Signs Vital signs: Vital Signs Temp 98.4 F 01/27/24 07:47 Pulse 101 H 01/27/24 07:47 Resp 17 01/27/24 07:47 BP 132/69 01/27/24 07:47 Pulse Ox 98 01/27/24 07:47 FiO2 Intake & Output 01/26/24 01/27/24 01/27/24 18:59 06:59 18:59 Intake Total 390 Output Total 150 Balance 390 -150 Weight 65.771 kg Intake: Intake, IV Titration 390 Amount Sodium Chloride 0.9% 1, 390 000 ml @ 130 mls/hr IV . Q7H42M STA Rx#:[id number] Output: Urine 150 Other: Voiding Method Toilet Toilet Urinal Urinal - Labs CBC & Chem 7: 01/27/24 05:23 01/27/24 05:23 Labs: Abnormal Lab Results - Last 24 Hours (Table) 01/26/24 01/26/24 01/26/24 Range/Units 10:19 10:19 10:19 WBC 16.7 H (3.8-10.6) k/uL RBC 4.21 L (4.30-5.90) m/uL Hgb 12.9 L (13.0-17.5) gm/dL Hct 37.7 L (39.0-53.0) % Neutrophils # 15.4 H (1.3-7.7) k/uL Lymphocytes # 0.6 L (1.0-4.8) k/uL ESR (0-15) mm/Hr Sodium 132 L (137-145) mmol/L BUN (9.0-27.0) mg/dL BUN/Creatinine Ratio (12.00-20.00) Ratio Glucose 120 H (74-99) mg/dL Calcium (8.7-10.3) mg/dL C-Reactive Protein (<1.0) mg/dL Total Protein (6.2-8.2) g/dL Albumin (3.8-4.9) g/dL Albumin/Globulin Ratio (1.60-3.17) Ratio Urine pH 8.5 H (5.0-8.0) Urine Protein 3+ H (Negative) Urine Ketones 3+ H (Negative) Urine Blood Large H (Negative) Ur Leukocyte Esterase Large H (Negative) Urine RBC >182 H (0-5) /hpf Urine WBC >182 H (0-5) /hpf Urine WBC Clumps Many H (None) /hpf Urine Bacteria Many H (None) /hpf 01/26/24 01/26/24 01/27/24 Range/Units 10:19 10:19 05:23 WBC (3.8-10.6) k/uL RBC (4.30-5.90) m/uL Hgb (13.0-17.5) gm/dL Hct (39.0-53.0) % Neutrophils # (1.3-7.7) k/uL Lymphocytes # (1.0-4.8) k/uL ESR 27 H (0-15) mm/Hr Sodium 134 L (137-145) mmol/L BUN 7.9 L (9.0-27.0) mg/dL BUN/Creatinine Ratio 11.29 L (12.00-20.00) Ratio Glucose 112 H (74-99) mg/dL Calcium 8.6 L (8.7-10.3) mg/dL C-Reactive Protein 8.2 H (<1.0) mg/dL Total Protein 5.9 L (6.2-8.2) g/dL Albumin 3.5 L (3.8-4.9) g/dL Albumin/Globulin Ratio 1.46 L (1.60-3.17) Ratio Urine pH (5.0-8.0) Urine Protein (Negative) Urine Ketones (Negative) Urine Blood (Negative) Ur Leukocyte Esterase (Negative) Urine RBC (0-5) /hpf Urine WBC (0-5) /hpf Urine WBC Clumps (None) /hpf Urine Bacteria (None) /hpf
[2024-01-28 09:11] LABS: HCT 33.7 % (39.6-50.0); HGB 11.4 g/dL (13.0-17.0); MCH 30.2 pg (27.0-32.0); MCHC 33.8 g/dL (32.0-37.0); MCV 89.2 FL (80.0-97.0); Mean Platelet Volume 10.7 FL (9.5-12.2); NRBC Per 100 WBC 0 X 10*3/uL (0.00-0.01); Platelet Count 166 X 10*3/uL (140-440); RBC 3.78 X 10*6/uL (4.40-5.60); RDW 12.9 % (11.5-14.5); WBC 19.43 X 10*3/uL (4.50-10.00)
[2024-01-28 09:54] LABS: Basophils # (A) 0.06 X 10*3/uL (0.00-0.10); Basophils % (A) 0.3 %; Eosinophils # (A) 0 X 10*3/uL (0.04-0.35); Eosinophils % (A) 0 %; Lymphocytes # (A) 0.63 X 10*3/uL (0.90-5.00); Lymphocytes % (A) 3.2 %; Monocytes # (A) 1.23 X 10*3/uL (0.20-1.00); Monocytes % (A) 6.3 %; Neutrophils # (A) 16.92 X 10*3/uL (1.80-7.70); Neutrophils % (A) 87.2 %
[2024-01-28 13:01] LABS: ALT 47 U/L (10-49); AST 42 U/L (14-35); Albumin 3.3 g/dL (3.8-4.9); Albumin/Globulin Ratio 1.32 Ratio (1.60-3.17); Alkaline Phosphatase 107 U/L (41-126); BUN/Creat Ratio 12.57 Ratio (12.00-20.00); Blood Urea Nitrogen 8.8 mg/dL (9.0-27.0); Calcium 8.3 mg/dL (8.7-10.3); Chloride 99 mmol/L (96-109); Globulin 2.5 g/dL (1.6-3.3); Glucose 112 mg/dL (70-110); Magnesium 1.5 mg/dL (1.5-2.4); Potassium 3.8 mmol/L (3.5-5.5); Sodium 132 mmol/L (135-145); Total Protein 5.8 g/dL (6.2-8.2)
--- NOTE | 2024-01-28 15:46 | P.PN ---
Subjective Progress Note Date: 01/28/24 Principal diagnosis: Reason for follow-up is sepsis/UTI Patient is a 43-year-old male with no significant past medical history presenting to the hospital for evaluation of lower abdominal pain and blood in the urine, patient mention he did have symptoms going on with the burning of urination that has been almost for about a month with acute worsening over a day or 2 before presented to the hospital abdominal pain and hematuria patient was noted to be septic secondary to urinary source. On today's evaluation that is 01/28/2024, Patient is afebrile this morning pat ient denies having any chest pain shortness of breath or cough, the patient is currently on room air, patient mention abdominal pain has decreased in intensity as well as urinary symptoms feeling better. Patient white count slightly up to 19.43 today creatinine 0.7 urine is growing gram-negative blood culture have been negative Objective - Vital Signs Vital signs: Vital Signs Temp 98.2 F 01/28/24 07:06 Pulse 112 H 01/28/24 07:06 Resp 18 01/28/24 07:06 BP 103/65 01/28/24 07:06 Pulse Ox 97 01/28/24 07:06 FiO2 Intake & Output 01/27/24 01/28/24 01/28/24 18:59 06:59 18:59 Intake Total 1320 Output Total 014 424 7940 Balance 720 -400 -1000 Weight 65.771 kg Intake: Oral 1320 Output: Urine 582 700 9042 Other: Voiding Method Toilet Toilet Urinal Urinal # Voids 1 - Exam GENERAL DESCRIPTION: Middle-age male lying in bed in no distress RESPIRATORY SYSTEM: Unlabored breathing , decreased breath sounds at bases HEART: S1 S2 regular rate and rhythm , ABDOMEN: Soft , mild lower abdominal tenderness EXTREMITIES: No edema feet - Labs CBC & Chem 7: 01/28/24 05:46 01/28/24 05:46 Labs: Abnormal Lab Results - Last 24 Hours (Table) 01/28/24 01/28/24 Range/Units 05:46 05:46 WBC 19.43 H (4.50-10.00) X 10*3/uL RBC 3.78 L (4.40-5.60) X 10*6/uL Hgb 11.4 L (13.0-17.0) g/dL Hct 33.7 L (39.6-50.0) % Immature Gran # 0.59 H (0.00-0.04) X 10*3/uL Neutrophils # 16.92 H (1.80-7.70) X 10*3/uL Lymphocytes # 0.63 L (0.90-5.00) X 10*3/uL Monocytes # 1.23 H (0.20-1.00) X 10*3/uL Eosinophils # 0 L (0.04-0.35) X 10*3/uL Sodium 132 L (135-145) mmol/L Carbon Dioxide 20.0 L (21.6-31.8) mmol/L Anion Gap 13.00 H (4.00-12.00) mmol/L BUN 8.8 L (9.0-27.0) mg/dL Glucose 112 H (70-110) mg/dL Calcium 8.3 L (8.7-10.3) mg/dL AST 42 H (14-35) U/L Total Protein 5.8 L (6.2-8.2) g/dL Albumin 3.3 L (3.8-4.9) g/dL Albumin/Globulin Ratio 1.32 L (1.60-3.17) Ratio Microbiology - Last 24 Hours (Table) 01/26/24 11:06 Blood Culture - Preliminary Blood 01/26/24 10:19 Urine Culture - Preliminary Urine,Voided Gram Neg Bacilli Assessment and Plan (1) Sepsis Current Visit: Yes Status: Acute Code(s): A41.9 - SEPSIS, UNSPECIFIED ORGANISM SNOMED Code(s): 36415387 (2) Emphysematous cystitis Current Visit: Yes Status: Acute Code(s): N30.80 - OTHER CYSTITIS WITHOUT HEMATURIA SNOMED Code(s): 26038795 Plan: 1patient presented to hospital with sepsis in this patient who did have fever tachycardia elevated white count meeting criteria for SIRS source is emphysematous cystitis and likely from enteric gram-negative pathogen. 2patient did have improvement in his fever pattern white count slightly up today need to be monitored closely for now continue with Rocephin while waiting for the culture to finalize Dictation was produced using [employer] dictation software. please excuse any grammatical, word or spelling errors. Time with Patient: Less than 30
--- NOTE | 2024-01-29 06:24 | P.PN ---
Subjective Progress Note Date: 01/28/24 History of present illness; patient is a 43-year-old gentleman with no significant past medical history who presents the ER because of burning pain while urination. Patient states that he was all right 1 month back when he started noticing that he was having increased frequency of urination and burning while peeing. Patient was also noticing increasing odor in his urine. Patient also complained of hematuria. Patient denies any fever or chills at the time. Patient does not have a PCP and did a telemedicine visit at which time he was prescribed Bactrim and completed the course for 1 week. Following that patient stated that for the last 3 days he noticed that once again he was having burning pain while urination. Patient also complaining of hematuria again. There was also complaint of fever and chills at home. There was no complaint of nausea or vomiting. Denies any abdominal pain. There was no complaint of weight loss. Because of these symptoms patient presented the ER Initial lab work done in the ER showed WBC 7.7, hemoglobin 12.9, sodium 132, potassium 3.8, BUN 10, creatinine 0.74, glucose 120, lactate 1.3, AST 26, ALT 26, UA showed large amount of blood, urine WBC greater than 182, large amount leukocyte esterase CT abdominal pelvis done showed haziness around the urinary bladder with bladder wall prominence and gas in the bladder lumen for gas-forming cystitis/hemorrh agic cystitis Patient admitted to internal medicine service 01/27/2024 Patient is admitted and seen in follow-up this morning continues with significant testicular pain and swelling with redness with urology and infectious disease following. Preliminary culture showing gram-negative bacilli and awaiting finalized cultures to determine discharge antibiotics. Patient to continue with icing the scrotal area and elevating as well as current pain regimen. Monitor for any fevers as patient has been continuously having low- grade temps. Will continue current regimen and await finalized cultures. Patient does not currently have a primary care provider as he is new to the area and will provide resources on discharge. 01/28/2024 Patient is seen in follow-up today continuing to have low-grade temps with infectious disease following and preliminary culture showing gram-negative bacilli on urine awaiting finalized cultures to determine discharge antibiotics. Encouraged increased activity as tolerated and up and walking. Continue with as needed antipyretics. EKG was done and patient is sinus tach likely secondary to continued fevers. Review of systems: Constitutional: No reports of fatigue, low-grade fever, occasional chills Cardiovascular: No reports of chest pain or palpitations Respiratory: No reports of shortness of breath or cough GI: No reports of nausea, vomiting, or diarrhea : No reports of dysuria or retention Neurovascular: No reports of weakness or numbness All medications have been reviewed PHYSICAL EXAMINATION: GENERAL: The patient is alert and oriented x3, not in any acute distress. Well developed, well nourished. HEENT: Pupils are round and equally reacting to light. EOMI. No scleral icterus. No conjunctival pallor. Normocephalic, atraumatic. No pharyngeal erythema. No thyromegaly. CARDIOVASCULAR: S1 and S2 present. No murmurs, rubs, or gallops. PULMONARY: Chest is clear to auscultation, no wheezing or crackles. ABDOMEN: Soft, nontender, nondistended, normoactive bowel sounds. No palpable organomegaly. MUSCULOSKELETAL: No joint swelling or deformity. EXTREMITIES: No cyanosis, clubbing, or pedal edema. NEUROLOGICAL: Gross neurological examination did not reveal any focal deficits. SKIN: No rashes. Assessment: Sepsis secondary to urinary tract infection, present on admission, preliminary culture showing gram-negative bacilli Acute hemorrhagic cystitis GI prophylaxis DVT prophylaxis Full code Plan: Patient is continued on IV antibiotics with infectious disease following and will await finalized cultures. Preliminary showing gram-negative bacilli Urology following and will need outpatient follow-up on discharge for further testing Continue to ice the scrotal area and elevate as tolerated as there continues to be significant redness, swelling, and discomfort Follow-up on repeat labs and replace electrolytes per protocol. Continue monitoring for fevers and use antipyretics as needed Encouraged increase activity as tolerated Will discuss with other consultations once cultures have finalized regarding discharge planning The impression and plan of care has been dictated by Jessica Rivera, Nurse Practitioner as directed. Dr. Virgen MD I have performed a history and examination and MDM of this patient, discussed the same with the dictator, and agree with the dictator's assessment and plan as written ,documented as a scribe. Based on total visit time, I have performed more than 50% of the visit. Objective - Vital Signs Vital signs: Vital Signs Temp 98.2 F 01/28/24 07:06 Pulse 112 H 01/28/24 07:06 Resp 18 01/28/24 07:06 BP 103/65 01/28/24 07:06 Pulse Ox 97 01/28/24 07:06 FiO2 Intake & Output 01/27/24 01/28/24 01/28/24 18:59 06:59 18:59 Intake Total 1320 Output Total 641 246 2173 Balance 720 -400 -1000 Weight 65.771 kg Intake: Oral 1320 Output: Urine 886 617 1483 Other: Voiding Method Toilet Toilet Urinal Urinal # Voids 1 - Labs CBC & Chem 7: 01/28/24 05:46 01/28/24 05:46 Labs: Abnormal Lab Results - Last 24 Hours (Table) 01/27/24 01/28/24 Range/Units 05:23 05:46 WBC 15.76 H 19.43 H (4.50-10.00) X 10*3/uL RBC 3.78 L 3.78 L (4.40-5.60) X 10*6/uL Hgb 11.4 L 11.4 L (13.0-17.0) g/dL Hct 34.5 L 33.7 L (39.6-50.0) % Immature Gran # 0.59 H (0.00-0.04) X 10*3/uL Neutrophils # 16.92 H (1.80-7.70) X 10*3/uL Lymphocytes # 0.63 L (0.90-5.00) X 10*3/uL Monocytes # 1.23 H (0.20-1.00) X 10*3/uL Eosinophils # 0 L (0.04-0.35) X 10*3/uL Microbiology - Last 24 Hours (Table) 01/26/24 11:06 Blood Culture - Preliminary Blood 01/26/24 10:19 Urine Culture - Preliminary Urine,Voided Gram Neg Bacilli
[2024-01-29] MEDS: SENNOSIDES 8.6 MG TAB PO SCH (06:47)
[2024-01-29 09:21] LABS: BUN/Creat Ratio 12.88 Ratio (12.00-20.00); Blood Urea Nitrogen 10.3 mg/dL (9.0-27.0); Calcium 8.6 mg/dL (8.7-10.3); Carbon Dioxide 25.2 mmol/L (21.6-31.8); Chloride 101 mmol/L (96-109); Glucose 100 mg/dL (70-110); Potassium 4.3 mmol/L (3.5-5.5); Sodium 136 mmol/L (135-145)
[2024-01-29 09:43] LABS: Basophils # (A) 0.11 X 10*3/uL (0.00-0.10); Basophils % (A) 0.5 %; Eosinophils # (A) 0.18 X 10*3/uL (0.04-0.35); Eosinophils % (A) 0.8 %; HCT 32.6 % (39.6-50.0); HGB 10.5 g/dL (13.0-17.0); Lymphocytes # (A) 0.75 X 10*3/uL (0.90-5.00); Lymphocytes % (A) 3.5 %; MCH 29.7 pg (27.0-32.0); MCHC 32.2 g/dL (32.0-37.0); MCV 92.1 FL (80.0-97.0); Mean Platelet Volume 10.8 FL (9.5-12.2); Monocytes # (A) 1.24 X 10*3/uL (0.20-1.00); Monocytes % (A) 5.9 %; NRBC Per 100 WBC 0 X 10*3/uL (0.00-0.01); Neutrophils # (A) 18.37 X 10*3/uL (1.80-7.70); Neutrophils % (A) 86.8 %; Platelet Count 172 X 10*3/uL (140-440); RBC 3.54 X 10*6/uL (4.40-5.60); RDW 13.2 % (11.5-14.5); WBC 21.19 X 10*3/uL (4.50-10.00)
[2024-01-29] MEDS: CEFEPIME 2 GM in SODIUM CHLORIDE 0.9% 100 ML IVPB SCH (10:11)
--- NOTE | 2024-01-29 11:08 | P.PN ---
Subjective Progress Note Date: 01/29/24 the patient is in the hospital with a urinary tract infection. On computed tomography scan he has air in his bladder. He is growing a Pseudomonas in the urine.he has bilateral epididymal orchitis. He feels a little better although he is still uncomfortable scrotum. His white count is up at 19,000. He states this morning he passed what appears to be stool in the urine. Objective - Vital Signs Vital signs: Vital Signs Temp 100 F H 01/29/24 07:10 Pulse 114 H 01/29/24 07:10 Resp 18 01/29/24 07:10 BP 110/70 01/29/24 07:10 Pulse Ox 98 01/29/24 07:10 FiO2 Intake & Output 01/28/24 01/29/24 01/29/24 18:59 06:59 18:59 Intake Total 530 440 Output Total 3100 Balance -2570 440 Intake: Intake, IV Titration 530 440 Amount Sodium Chloride 0.9% 1, 480 440 000 ml @ 40 mls/hr IV . Q24H [facility] Rx#:[id number] cefTRIAXone 2 gm In 50 Sodium Chloride 0.9% 50 ml @ 100 mls/hr IVPB DAILY [facility] Rx#:[id number] Output: Urine 3100 Other: Voiding Method Toilet Urinal # Voids 3 - Genitourinary Genitourinary Comment(s): bilateral epididymal orchitis with swollen scrotum. No obvious abscess or crepitus - Labs CBC & Chem 7: 01/29/24 05:30 01/29/24 05:30 Labs: Abnormal Lab Results - Last 24 Hours (Table) 01/28/24 01/29/24 01/29/24 Range/Units 05:46 05:30 05:30 WBC 21.19 H (4.50-10.00) X 10*3/uL RBC 3.54 L (4.40-5.60) X 10*6/uL Hgb 10.5 L (13.0-17.0) g/dL Hct 32.6 L (39.6-50.0) % Immature Gran # 0.54 H (0.00-0.04) X 10*3/uL Neutrophils # 18.37 H (1.80-7.70) X 10*3/uL Lymphocytes # 0.75 L (0.90-5.00) X 10*3/uL Monocytes # 1.24 H (0.20-1.00) X 10*3/uL Basophils # 0.11 H (0.00-0.10) X 10*3/uL Sodium 132 L (135-145) mmol/L Carbon Dioxide 20.0 L (21.6-31.8) mmol/L Anion Gap 13.00 H (4.00-12.00) mmol/L BUN 8.8 L (9.0-27.0) mg/dL Glucose 112 H (70-110) mg/dL Calcium 8.3 L 8.6 L (8.7-10.3) mg/dL AST 42 H (14-35) U/L Total Protein 5.8 L (6.2-8.2) g/dL Albumin 3.3 L (3.8-4.9) g/dL Albumin/Globulin Ratio 1.32 L (1.60-3.17) Ratio Microbiology - Last 24 Hours (Table) 01/26/24 11:06 Blood Culture - Preliminary Blood 01/26/24 10:19 Urine Culture - Final Urine,Voided Pseudomonas aeruginosa Assessment and Plan Assessment: impression: Urinary tract infection, pneumaturia. Recommendations: I reviewed the computed tomography scan. Indeed there is air in the bladder. The bowel does lay right next to the bladder. I'm concerned about a possible colovesical fistula given the pneumaturia,description of stool in the urine and the persistence of the symptoms despite appropriate antibiotics. Surgical consultation would be appropriate.
--- NOTE | 2024-01-29 12:37 | P.GSCN ---
History of Present Illness Consult date: 01/29/24 History of present illness: CHIEF COMPLAINT: Burning with urination HISTORY OF PRESENT ILLNESS: This is a 43-year-old male who presented to the hospital complaints of burning with urination and urine frequency. He had been treated for UTI in the outpatient setting and had completed 6 days of Bactrim. Patient has not been admitted to the hospital with emphysematous cystitis. He was seen by urology service. Patient reports on Saturday he started passing stool and air in his urine. Surgical service has been consulted for concerns of possible colovesical fistula. Patient does report pain in the suprapubic area. He has been mildly tachycardic with fevers. He is on antibiotics. He denies any prior abdominal surgery. Does report family history mother with di verticulitis requiring surgery and father with diverticulitis. Patient denies any prior history of diverticulitis. He has never had a colonoscopy. Patient seen and examined with Dr. Quiles PAST MEDICAL HISTORY: none PAST SURGICAL HISTORY: none MEDICATIONS: See below ALLERGIES: See below SOCIAL HISTORY: No illicit drug use. REVIEW OF SYSTEMS: CONSTITUTIONAL: Denies fever or chills. HEENT: Denies blurred vision, vision changes, or eye pain. Denies hemoptysis CARDIOVASCULAR: Denies chest pain or pressure. RESPIRATORY: No shortness of breath. GASTROINTESTINAL: See HPI for pertinent findings HEMATOLOGIC: Denies bleeding disorders. GENITOURINARY: Denies any blood in urine or increased urinary frequency. SKIN: Denies pruitis. Denies rash. PHYSICAL EXAM: VITAL SIGNS: Reviewed GENERAL: Well-developed in no acute distress. HEENT: No sclera icterus. Extraocular movements grossly intact. Moist buccal mucosa. Head is atraumatic, normocephalic. No nasal drainage. ABDOMEN: Soft. Nondistended. Patient is more tender in the suprapubic area. Mild tenderness left lower quadrant. No guarding noted. NEUROLOGIC: Alert and oriented. Cranial nerves II through XII grossly intact. LABORATORY DATA: WBC is going up at 21 hemoglobin 10.5 platelets 172 Sodium 136 potassium is 4.3 creatinine 0.8 IMAGING: CT scan abdomen pelvis reports haziness around the urinary bladder with bladder wall prominence and gas in the bladder lumen. Correlate for forming cystitis hemorrhagic cystitis. Focal wall thickening superior lateral aspect of urinary bladder. Fat stranding changes also adjacent ASSESSMENT: 1. Possible colovesical fistula PLAN: -Patient scheduled for colonoscopy tomorrow with Dr. Quiles -Start GoLytely bowel prep -Clear liquid diet today -N.p.o. after midnight -Continue antibiotics per ID service Physician Scaffold Setter note has been reviewed by physician. Signing provider agrees with the documented findings, assessment, and plan of care. Past Medical History Past Medical History: No Reported History History of Any Multi-Drug Resistant Organisms: None Reported Past Surgical History: No Surgical Hx Reported Past Anesthesia/Blood Transfusion Reactions: No Reported Reaction Additional Past Anesthesia/Blood Transfusion Reaction / Comm: no past surgery or blood transfusion Smoking Status: Never smoker Past Alcohol Use History: Occasional Past Drug Use History: Marijuana - Past Family History Father Family Medical History: Cancer, Diabetes Mellitus Additional Family Medical History / Comment(s): prostate cancer Medications and Allergies Home Medications Medication Instructions Recorded Confirmed Type No Known Home Medications 01/26/24 01/26/24 History Allergies Allergy/AdvReac Type Severity Reaction Status Date / Time No Known Allergies Allergy Verified 01/26/24 11:24 Surgical - Exam Vital Signs Temp Pulse Resp BP Pulse Ox 98.4 F 99 20 136/82 100 01/26/24 09:18 01/26/24 09:18 01/26/24 09:18 01/26/24 09:18 01/26/24 09:18 Results - Labs 01/29/24 05:30 01/29/24 05:30 Abnormal Lab Results - Last 24 Hours (Table) 01/28/24 01/29/24 01/29/24 Range/Units 05:46 05:30 05:30 WBC 21.19 H (4.50-10.00) X 10*3/uL RBC 3.54 L (4.40-5.60) X 10*6/uL Hgb 10.5 L (13.0-17.0) g/dL Hct 32.6 L (39.6-50.0) % Immature Gran # 0.54 H (0.00-0.04) X 10*3/uL Neutrophils # 18.37 H (1.80-7.70) X 10*3/uL Lymphocytes # 0.75 L (0.90-5.00) X 10*3/uL Monocytes # 1.24 H (0.20-1.00) X 10*3/uL Basophils # 0.11 H (0.00-0.10) X 10*3/uL Sodium 132 L (135-145) mmol/L Carbon Dioxide 20.0 L (21.6-31.8) mmol/L Anion Gap 13.00 H (4.00-12.00) mmol/L BUN 8.8 L (9.0-27.0) mg/dL Glucose 112 H (70-110) mg/dL Calcium 8.3 L 8.6 L (8.7-10.3) mg/dL AST 42 H (14-35) U/L Total Protein 5.8 L (6.2-8.2) g/dL Albumin 3.3 L (3.8-4.9) g/dL Albumin/Globulin Ratio 1.32 L (1.60-3.17) Ratio Microbiology - Last 24 Hours (Table) 01/26/24 11:06 Blood Culture - Preliminary Blood 01/26/24 10:19 Urine Culture - Final Urine,Voided Pseudomonas aeruginosa Diabetes panel 01/28/24 01/29/24 Range/Units 05:46 05:30 Sodium 132 L 136 (135-145) mmol/L Potassium 3.8 4.3 (3.5-5.5) mmol/L Chloride 99 101 (96-109) mmol/L Carbon Dioxide 20.0 L 25.2 (21.6-31.8) mmol/L BUN 8.8 L 10.3 (9.0-27.0) mg/dL Creatinine 0.7 0.8 (0.6-1.5) mg/dL Glucose 112 H 100 (70-110) mg/dL Calcium 8.3 L 8.6 L (8.7-10.3) mg/dL AST 42 H (14-35) U/L ALT 47 (10-49) U/L Alkaline Phosphatase 107 (41-126) U/L Total Protein 5.8 L (6.2-8.2) g/dL Albumin 3.3 L (3.8-4.9) g/dL Calcium panel 01/28/24 01/29/24 Range/Units 05:46 05:30 Calcium 8.3 L 8.6 L (8.7-10.3) mg/dL Albumin 3.3 L (3.8-4.9) g/dL Pituitary panel 01/28/24 01/29/24 Range/Units 05:46 05:30 Sodium 132 L 136 (135-145) mmol/L Potassium 3.8 4.3 (3.5-5.5) mmol/L Chloride 99 101 (96-109) mmol/L Carbon Dioxide 20.0 L 25.2 (21.6-31.8) mmol/L BUN 8.8 L 10.3 (9.0-27.0) mg/dL Creatinine 0.7 0.8 (0.6-1.5) mg/dL Glucose 112 H 100 (70-110) mg/dL Calcium 8.3 L 8.6 L (8.7-10.3) mg/dL Adrenal panel 01/28/24 01/29/24 Range/Units 05:46 05:30 Sodium 132 L 136 (135-145) mmol/L Potassium 3.8 4.3 (3.5-5.5) mmol/L Chloride 99 101 (96-109) mmol/L Carbon Dioxide 20.0 L 25.2 (21.6-31.8) mmol/L BUN 8.8 L 10.3 (9.0-27.0) mg/dL Creatinine 0.7 0.8 (0.6-1.5) mg/dL Glucose 112 H 100 (70-110) mg/dL Calcium 8.3 L 8.6 L (8.7-10.3) mg/dL Total Bilirubin 1.0 (0.3-1.2) mg/dL AST 42 H (14-35) U/L ALT 47 (10-49) U/L Alkaline Phosphatase 107 (41-126) U/L Total Protein 5.8 L (6.2-8.2) g/dL Albumin 3.3 L (3.8-4.9) g/dL
[2024-01-29] MEDS: PEG 3350 (236 GM/BTL) + LYTES 4,000 ML BOTTLE PO ONE (13:54)
[2024-01-30 05:22] LABS: Basophils # (A) 0.1 k/uL (0-0.2); Basophils % (A) 0 %; Eosinophils # (A) 0.5 k/uL (0-0.7); Eosinophils % (A) 4 %; HCT 30.8 % (39.0-53.0); Lymphocytes # (A) 0.7 k/uL (1.0-4.8); Lymphocytes % (A) 5 %; MCH 29.8 pg (25.0-35.0); MCHC 32.3 g/dL (31.0-37.0); MCV 92.4 fL (80.0-100.0); Mean Platelet Volume 8.1; Monocytes # (A) 0.5 k/uL (0-1.0); Monocytes % (A) 4 %; Neutrophils # (A) 10.9 k/uL (1.3-7.7); Neutrophils % (A) 86 %; Platelet Count 178 k/uL (150-450); RBC 3.33 m/uL (4.30-5.90); RDW 13.3 % (11.5-15.5); WBC 12.8 k/uL (3.8-10.6)
[2024-01-30 05:29] LABS: HGB 9.9 gm/dL (13.0-17.5)
[2024-01-30 05:52] LABS: African American GFR (CKD) >90 (>60 ml/min/1.73 sqM); Anion Gap 2 mmol/L; Blood Urea Nitrogen 12 mg/dL (9-20); Calcium 8.5 mg/dL (8.4-10.2); Carbon Dioxide 25 mmol/L (22-30); Chloride 106 mmol/L (98-107); Glucose 79 mg/dL (74-99); Non-African American GFR(CKD) >90 (>60 ml/min/1.73 sqM); Potassium 3.4 mmol/L (3.5-5.1); Sodium 133 mmol/L (137-145)
[2024-01-30] MEDS ORDERED: Potassium Replacement Protocol 1 EACH MISC MISCELLANE PRN (06:12)
--- NOTE | 2024-01-30 06:18 | P.PN ---
Subjective Progress Note Date: 01/29/24 History of present illness; patient is a 43-year-old gentleman with no significant past medical history who presents the ER because of burning pain while urination. Patient states that he was all right 1 month back when he started noticing that he was having increased frequency of urination and burning while peeing. Patient was also noticing increasing odor in his urine. Patient also complained of hematuria. Patient denies any fever or chills at the time. Patient does not have a PCP and did a telemedicine visit at which time he was prescribed Bactrim and completed the course for 1 week. Following that patient stated that for the last 3 days he noticed that once again he was having burning pain while urination. Patient also complaining of hematuria again. There was also complaint of fever and chills at home. There was no complaint of nausea or vomiting. Denies any abdominal pain. There was no complaint of weight loss. Because of these symptoms patient presented the ER Initial lab work done in the ER showed WBC 7.7, hemoglobin 12.9, sodium 132, potassium 3.8, BUN 10, creatinine 0.74, glucose 120, lactate 1.3, AST 26, ALT 26, UA showed large amount of blood, urine WBC greater than 182, large amount leukocyte esterase CT abdominal pelvis done showed haziness around the urinary bladder with bladder wall prominence and gas in the bladder lumen for gas-forming cystitis/hemorrh agic cystitis Patient admitted to internal medicine service 01/27/2024 Patient is admitted and seen in follow-up this morning continues with significant testicular pain and swelling with redness with urology and infectious disease following. Preliminary culture showing gram-negative bacilli and awaiting finalized cultures to determine discharge antibiotics. Patient to continue with icing the scrotal area and elevating as well as current pain regimen. Monitor for any fevers as patient has been continuously having low- grade temps. Will continue current regimen and await finalized cultures. Patient does not currently have a primary care provider as he is new to the area and will provide resources on discharge. 01/28/2024 Patient is seen in follow-up today continuing to have low-grade temps with infectious disease following and preliminary culture showing gram-negative bacilli on urine awaiting finalized cultures to determine discharge antibiotics. Encouraged increased activity as tolerated and up and walking. Continue with as needed antipyretics. EKG was done and patient is sinus tach likely secondary to continued fevers. 01/29/2024 Patient is seen in follow-up today had a few low-grade temps noted and also white count elevated to 21 and patient reported he felt he was having stool in his urine. Urology reevaluated and general surgery consult was placed as there is concern for colo vesicle fistula. Urine culture finalized with Pseudomonas aeruginosa with infectious disease following and has transition to cefepime. Patient is starting GoLytely prep and will be planning for colonoscopy tomorrow with general surgery. at the bedside with questions and concerns that were answered to the best of our ability Review of systems: Constitutional: No reports of fatigue, continued low-grade fever, occasional chills Cardiovascular: No reports of chest pain or palpitations Respiratory: No reports of shortness of breath or cough GI: No reports of nausea, vomiting, or diarrhea : No reports of dysuria or retention, reports stool in the urine Neurovascular: reports of generalized weakness All medications have been reviewed PHYSICAL EXAMINATION: GENERAL: The patient is alert and oriented x3, appears rundown. Well developed, well nourished. HEENT: Pupils are round and equally reacting to light. EOMI. No scleral icterus. No conjunctival pallor. Normocephalic, atraumatic. No pharyngeal erythema. No thyromegaly. CARDIOVASCULAR: S1 and S2 present. No murmurs, rubs, or gallops. Sinus tach noted PULMONARY: Chest is clear to auscultation, no wheezing or crackles. ABDOMEN: Soft, nontender, nondistended, normoactive bowel sounds. No palpable organomegaly. MUSCULOSKELETAL: No joint swelling or deformity. EXTREMITIES: No cyanosis, clubbing, or pedal edema. NEUROLOGICAL: Gross neurological examination did not reveal any focal deficits. Diffusely weak SKIN: No rashes. Pale Assessment: Sepsis secondary to urinary tract infection, present on admission, cultures growing Pseudomonas aeruginosa Acute hemorrhagic cystitis Stool noted in the urine, concerns for possible colovesical fistula Strong family history of diverticulitis in mother and father GI prophylaxis DVT prophylaxis Full code Plan: Patient is continued on IV antibiotics with infectious disease following and urine cultures finalized with Pseudomonas aeruginosa. Antibiotics have been transitioned to cefepime. White count elevated at 21 today and continues to have fevers Urology following and is concerned for possible colovesical fistula as patient is noting to have stool in the urine. General surgery consulted and patient will undergo colonoscopy. Patient is completing the bowel prep today and will be n.p.o. at midnight Continue to ice the scrotal area and elevate as tolerated as there continues to be significant redness, swelling, and discomfort Follow-up on repeat labs and replace electrolytes per protocol. Continue monitoring for fevers and use antipyretics as needed Encouraged increase activity as tolerated The impression and plan of care has been dictated by Jessica Rivera, Nurse Practitioner as directed. Dr. Virgen MD I have performed a history and examination and MDM of this patient, discussed the same with the dictator, and agree with the dictator's assessment and plan as written ,documented as a scribe. Based on total visit time, I have performed more than 50% of the visit. Objective - Vital Signs Vital signs: Vital Signs Temp 100 F H 01/29/24 07:10 Pulse 114 H 01/29/24 07:10 Resp 18 01/29/24 07:10 BP 110/70 01/29/24 07:10 Pulse Ox 98 01/29/24 07:10 FiO2 Intake & Output 01/28/24 01/29/24 01/29/24 18:59 06:59 18:59 Intake Total 530 440 Output Total 3100 Balance -2570 440 Intake: Intake, IV Titration 530 440 Amount Sodium Chloride 0.9% 1, 480 440 000 ml @ 40 mls/hr IV . Q24H [facility] Rx#:[id number] cefTRIAXone 2 gm In 50 Sodium Chloride 0.9% 50 ml @ 100 mls/hr IVPB DAILY [facility] Rx#:[id number] Output: Urine 3100 Other: Voiding Method Toilet Urinal # Voids 3 - Labs CBC & Chem 7: 01/30/24 04:51 01/30/24 04:51 Labs: Abnormal Lab Results - Last 24 Hours (Table) 01/28/24 01/29/24 01/29/24 Range/Units 05:46 05:30 05:30 WBC 21.19 H (4.50-10.00) X 10*3/uL RBC 3.54 L (4.40-5.60) X 10*6/uL Hgb 10.5 L (13.0-17.0) g/dL Hct 32.6 L (39.6-50.0) % Immature Gran # 0.54 H (0.00-0.04) X 10*3/uL Neutrophils # 18.37 H (1.80-7.70) X 10*3/uL Lymphocytes # 0.75 L (0.90-5.00) X 10*3/uL Monocytes # 1.24 H (0.20-1.00) X 10*3/uL Basophils # 0.11 H (0.00-0.10) X 10*3/uL Sodium 132 L (135-145) mmol/L Carbon Dioxide 20.0 L (21.6-31.8) mmol/L Anion Gap 13.00 H (4.00-12.00) mmol/L BUN 8.8 L (9.0-27.0) mg/dL Glucose 112 H (70-110) mg/dL Calcium 8.3 L 8.6 L (8.7-10.3) mg/dL AST 42 H (14-35) U/L Total Protein 5.8 L (6.2-8.2) g/dL Albumin 3.3 L (3.8-4.9) g/dL Albumin/Globulin Ratio 1.32 L (1.60-3.17) Ratio Microbiology - Last 24 Hours (Table) 01/26/24 11:06 Blood Culture - Preliminary Blood 01/26/24 10:19 Urine Culture - Final Urine,Voided Pseudomonas aeruginosa
[2024-01-30] MEDS: POTASSIUM CHLORIDE 10 MEQ in WATER FOR INJECTION 1 100ML.BAG IVPB SCH (06:32)
--- NOTE | 2024-01-30 07:47 | P.PN ---
Subjective Progress Note Date: 01/29/24 Principal diagnosis: Reason for follow-up is sepsis/UTI Patient is a 43-year-old male with no significant past medical history presenting to the hospital for evaluation of lower abdominal pain and blood in the urine, patient mention he did have symptoms going on with the burning of urination that has been almost for about a month with acute worsening over a day or 2 before presented to the hospital abdominal pain and hematuria patient was noted to be septic secondary to urinary source. On today's evaluation that is 01/29/2024,the patient did have low-grade fever 100 F this morning patient was mildly tachycardic patient denies having any chest pain shortness of breath or cough no nausea no vomiting no abdominal pain has decreased intensity apparently the patient did have some stools through his urethra this morning. Patient white count is up to 21.19 creatinine 0.8 urine has been finalized with Pseudomonas blood cultures are pending Objective - Vital Signs Vital signs: Vital Signs Temp 100 F H 01/29/24 07:10 Pulse 114 H 01/29/24 07:10 Resp 18 01/29/24 07:10 BP 110/70 01/29/24 07:10 Pulse Ox 98 01/29/24 07:10 FiO2 Intake & Output 01/28/24 01/29/24 01/29/24 18:59 06:59 18:59 Intake Total 530 440 Output Total 3100 Balance -2570 440 Intake: Intake, IV Titration 530 440 Amount Sodium Chloride 0.9% 1, 480 440 000 ml @ 40 mls/hr IV . Q24H [facility] Rx#:[id number] cefTRIAXone 2 gm In 50 Sodium Chloride 0.9% 50 ml @ 100 mls/hr IVPB DAILY [facility] Rx#:[id number] Output: Urine 3100 Other: Voiding Method Toilet Urinal # Voids 3 - Exam GENERAL DESCRIPTION: Middle-age male lying in bed in no distress RESPIRATORY SYSTEM: Unlabored breathing , decreased breath sounds at bases HEART: S1 S2 regular rate and rhythm , ABDOMEN: Soft , mild lower abdominal tenderness EXTREMITIES: No edema feet - Labs CBC & Chem 7: 01/30/24 04:51 01/30/24 04:51 Labs: Abnormal Lab Results - Last 24 Hours (Table) 01/28/24 01/28/24 Range/Units 05:46 05:46 WBC 19.43 H (4.50-10.00) X 10*3/uL RBC 3.78 L (4.40-5.60) X 10*6/uL Hgb 11.4 L (13.0-17.0) g/dL Hct 33.7 L (39.6-50.0) % Immature Gran # 0.59 H (0.00-0.04) X 10*3/uL Neutrophils # 16.92 H (1.80-7.70) X 10*3/uL Lymphocytes # 0.63 L (0.90-5.00) X 10*3/uL Monocytes # 1.23 H (0.20-1.00) X 10*3/uL Eosinophils # 0 L (0.04-0.35) X 10*3/uL Sodium 132 L (135-145) mmol/L Carbon Dioxide 20.0 L (21.6-31.8) mmol/L Anion Gap 13.00 H (4.00-12.00) mmol/L BUN 8.8 L (9.0-27.0) mg/dL Glucose 112 H (70-110) mg/dL Calcium 8.3 L (8.7-10.3) mg/dL AST 42 H (14-35) U/L Total Protein 5.8 L (6.2-8.2) g/dL Albumin 3.3 L (3.8-4.9) g/dL Albumin/Globulin Ratio 1.32 L (1.60-3.17) Ratio Microbiology - Last 24 Hours (Table) 01/26/24 11:06 Blood Culture - Preliminary Blood 01/26/24 10:19 Urine Culture - Final Urine,Voided Pseudomonas aeruginosa Assessment and Plan (1) Sepsis Current Visit: Yes Status: Acute Code(s): A41.9 - SEPSIS, UNSPECIFIED ORGANISM SNOMED Code(s): 00285891 (2) Emphysematous cystitis Current Visit: Yes Status: Acute Code(s): N30.80 - OTHER CYSTITIS WITHOUT HEMATURIA SNOMED Code(s): 66668874 (3) Pseudomonas aeruginosa infection Current Visit: Yes Status: Acute Code(s): A49.8 - OTHER BACTERIAL INFECTIONS OF UNSPECIFIED SITE SNOMED Code(s): 17384210 Plan: 1patient presented to hospital with sepsis in this patient who did have fever tachycardia elevated white count meeting criteria for SIRS source is emphysematous cystitis and likely from enteric gram-negative pathogen. 2patient now reporting some stool through his ureter concerning for colovesical fistula General Surgery has been consulted urology is following the patient 3-urine has been finalized with Pseudomonas aeruginosa Rocephin has been discontinued patient started on cefepime 2 g every 8 hours Dictation was produced using [employer] dictation software. please excuse any grammatical, word or spelling errors. Time with Patient: Less than 30
[2024-01-30] MEDS ORDERED: PROPOFOL 10 MG/ML 20 ML VIAL IV ONE (08:04)
[2024-01-30] MEDS: IV FLUID CONTINUATION 1,000 ML IV ONE (08:05)
--- NOTE | 2024-01-30 08:30 | P.OP ---
Date of Procedure: 01/30/24 Preoperative Diagnosis: Colovesical fistula Postoperative Diagnosis: Colovesical fistula Diverticulosis Procedure(s) Performed: Colonoscopy Anesthesia: MAC Surgeon: Rogers Quiles Pathology: none sent Condition: stable Disposition: PACU Description of Procedure: The patient is placed on the endoscopy table in the lateral position. He received IV sedation. Digital rectal exams performed. This revealed no abnormalities. The prostate is symmetric without nodules. Flexible colonoscope was then placed in the patient's anus. And passed throughout the colon. The colonoscope could not be advanced beyond the sigmoid colon secondary to inflammatory changes in colon. This point scope was withdrawn. The colon was noted to have diverticular changes. The scope was then brought back to the rectum this appeared normal. Scope withdrawn for the patient.
[2024-01-30] MEDS ORDERED: HEPARIN SODIUM,PORCINE 5,000 UNIT/ML 1 ML VIAL SQ SCH (09:30)
[2024-01-30] MEDS: metroNIDAZOLE-NS PMX 500 MG in SALINE 1 100ML.BAG IVPB SCH (09:47)
--- NOTE | 2024-01-30 13:48 | P.PN ---
Subjective Progress Note Date: 01/30/24 Principal diagnosis: Reason for follow-up is sepsis/UTI Patient is a 43-year-old male with no significant past medical history presenting to the hospital for evaluation of lower abdominal pain and blood in the urine, patient mention he did have symptoms going on with the burning of urination that has been almost for about a month with acute worsening over a day or 2 before presented to the hospital abdominal pain and hematuria patient was noted to be septic secondary to urinary source. On today's evaluation that is 01/30/2024,the patient did have resolution of his fever and is afebrile this morning, patient is on room air not requiring supplemental oxygen and denies any shortness of breath no chest pain or cough.Patient denies having any nausea or vomiting, abdominal pain has decreased and denies having any further stool through his urethra. Patient white count is down to 12.8 creatinine 0.60 blood culture remains to be negative Objective - Vital Signs Vital signs: Vital Signs Temp 98.4 F 01/30/24 12:48 Pulse 102 H 01/30/24 12:48 Resp 17 01/30/24 12:48 BP 129/77 01/30/24 12:48 Pulse Ox 100 01/30/24 12:48 FiO2 Intake & Output 01/29/24 01/30/24 01/30/24 18:59 06:59 18:59 Intake Total 2350 380 100 Output Total 2200 Balance 150 380 100 Intake: IV 100 Intake, IV Titration 730 380 Amount Cefepime 2 gm In Sodium 200 100 Chloride 0.9% 100 ml @ 25 mls/hr IVPB Q8HR [facility] Rx# :[id number] Sodium Chloride 0.9% 1, 480 280 000 ml @ 40 mls/hr IV . Q24H [facility] Rx#:[id number] cefTRIAXone 2 gm In 50 Sodium Chloride 0.9% 50 ml @ 100 mls/hr IVPB DAILY [facility] Rx#:[id number] Oral 1620 Output: Urine 2200 Other: Voiding Method Toilet Toilet Urinal Urinal # Voids 3 - Exam GENERAL DESCRIPTION: Middle-age male lying in bed in no distress RESPIRATORY SYSTEM: Unlabored breathing , decreased breath sounds at bases HEART: S1 S2 regular rate and rhythm , ABDOMEN: Soft , mild lower abdominal tenderness EXTREMITIES: No edema feet - Labs CBC & Chem 7: 01/30/24 04:51 01/30/24 04:51 Labs: Abnormal Lab Results - Last 24 Hours (Table) 01/30/24 01/30/24 Range/Units 04:51 04:51 WBC 12.8 H (3.8-10.6) k/uL RBC 3.33 L (4.30-5.90) m/uL Hgb 9.9 L D (13.0-17.5) gm/dL Hct 30.8 L (39.0-53.0) % Neutrophils # 10.9 H (1.3-7.7) k/uL Lymphocytes # 0.7 L (1.0-4.8) k/uL Sodium 133 L (137-145) mmol/L Potassium 3.4 L (3.5-5.1) mmol/L Creatinine 0.60 L (0.66-1.25) mg/dL Microbiology - Last 24 Hours (Table) 01/26/24 11:06 Blood Culture - Preliminary Blood Assessment and Plan (1) Sepsis Current Visit: Yes Status: Acute Code(s): A41.9 - SEPSIS, UNSPECIFIED ORGANISM SNOMED Code(s): 79364282 (2) Emphysematous cystitis Current Visit: Yes Status: Acute Code(s): N30.80 - OTHER CYSTITIS WITHOUT HEMATURIA SNOMED Code(s): 00748901 (3) Pseudomonas aeruginosa infection Current Visit: Yes Status: Acute Code(s): A49.8 - OTHER BACTERIAL INFECTIONS OF UNSPECIFIED SITE SNOMED Code(s): 82225725 Plan: 1patient presented to hospital with sepsis in this patient who did have fever tachycardia elevated white count meeting criteria for SIRS source is emphysematous cystitis and likely from enteric gram-negative pathogen. 2patient now reporting some stool through his ureter concerning for colovesical fistula General Surgery has been done for colonoscopy this morning and scheduled for surgery tomorrow 3-urine has been finalized with Pseudomonas aeruginosa 4patient fever has resolved white count is trending down I will continue patient on cefepime and Flagyl and monitor clinical course closely question concern answered Dictation was produced using [employer] dictation software. please excuse any grammatical, word or spelling errors. Time with Patient: Less than 30
--- NOTE | 2024-01-30 13:52 | P.PN ---
Subjective Progress Note Date: 01/30/24 SURGICAL PROGRESS NOTE CHIEF COMPLAINT: Colovesical fistula HISTORY OF PRESENT ILLNESS: Patient status post colonoscopy today. Colonoscopy reports that scope could not be advanced beyond the sigmoid colon secondary to inflammatory changes in the colon. The colon was noted to have diverticular changes. Afebrile. WBC is down from 21-12.8 Hgb 9.9 potassium 3.4 and being replaced PHYSICAL EXAM: VITAL SIGNS: Reviewed. GENERAL: Well-developed in no acute distress. ABDOMEN: Soft. Nondistended. Tenderness with palpation suprapubic area and left lower quadrant NEUROLOGIC: Alert and oriented. Cranial nerves II through XII grossly intact. ASSESSMENT: 1. Colovesical fistula 2. Hypokalemia status post supplement PLAN: -Patient scheduled for sigmoid colectomy tomorrow with Dr. Kb Martínez for clear liquid diet today -N.p.o. 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 Signing provider agrees with the documented findings, assessment, and plan of care. Objective - Vital Signs Vital signs: Vital Signs Temp 98.4 F 01/30/24 12:48 Pulse 102 H 01/30/24 12:48 Resp 17 01/30/24 12:48 BP 129/77 01/30/24 12:48 Pulse Ox 100 01/30/24 12:48 FiO2 Intake & Output 01/29/24 01/30/24 01/30/24 18:59 06:59 18:59 Intake Total 2350 380 100 Output Total 2200 Balance 150 380 100 Intake: IV 100 Intake, IV Titration 730 380 Amount Cefepime 2 gm In Sodium 200 100 Chloride 0.9% 100 ml @ 25 mls/hr IVPB Q8HR [facility] Rx# :[id number] Sodium Chloride 0.9% 1, 480 280 000 ml @ 40 mls/hr IV . Q24H [facility] Rx#:[id number] cefTRIAXone 2 gm In 50 Sodium Chloride 0.9% 50 ml @ 100 mls/hr IVPB DAILY [facility] Rx#:[id number] Oral 1620 Output: Urine 2200 Other: Voiding Method Toilet Toilet Urinal Urinal # Voids 3 - Labs CBC & Chem 7: 01/30/24 04:51 01/30/24 04:51 Labs: Abnormal Lab Results - Last 24 Hours (Table) 01/30/24 01/30/24 Range/Units 04:51 04:51 WBC 12.8 H (3.8-10.6) k/uL RBC 3.33 L (4.30-5.90) m/uL Hgb 9.9 L D (13.0-17.5) gm/dL Hct 30.8 L (39.0-53.0) % Neutrophils # 10.9 H (1.3-7.7) k/uL Lymphocytes # 0.7 L (1.0-4.8) k/uL Sodium 133 L (137-145) mmol/L Potassium 3.4 L (3.5-5.1) mmol/L Creatinine 0.60 L (0.66-1.25) mg/dL Microbiology - Last 24 Hours (Table) 01/26/24 11:06 Blood Culture - Preliminary Blood
[2024-01-30] MEDS ORDERED: LIDOCAINE 1% (10MG/ML) FOR IV START INTRADERMA PRN (13:54)
--- NOTE | 2024-01-30 15:00 | P.PN ---
Subjective Progress Note Date: 01/30/24 History of present illness; patient is a 43-year-old gentleman with no significant past medical history who presents the ER because of burning pain while urination. Patient states that he was all right 1 month back when he started noticing that he was having increased frequency of urination and burning while peeing. Patient was also noticing increasing odor in his urine. Patient also complained of hematuria. Patient denies any fever or chills at the time. Patient does not have a PCP and did a telemedicine visit at which time he was prescribed Bactrim and completed the course for 1 week. Following that patient stated that for the last 3 days he noticed that once again he was having burning pain while urination. Patient also complaining of hematuria again. There was also complaint of fever and chills at home. There was no complaint of nausea or vomiting. Denies any abdominal pain. There was no complaint of weight loss. Because of these symptoms patient presented the ER Initial lab work done in the ER showed WBC 7.7, hemoglobin 12.9, sodium 132, potassium 3.8, BUN 10, creatinine 0.74, glucose 120, lactate 1.3, AST 26, ALT 26, UA showed large amount of blood, urine WBC greater than 182, large amount leukocyte esterase CT abdominal pelvis done showed haziness around the urinary bladder with bladder wall prominence and gas in the bladder lumen for gas-forming cystitis/hemorrh agic cystitis Patient admitted to internal medicine service 01/27/2024 Patient is admitted and seen in follow-up this morning continues with significant testicular pain and swelling with redness with urology and infectious disease following. Preliminary culture showing gram-negative bacilli and awaiting finalized cultures to determine discharge antibiotics. Patient to continue with icing the scrotal area and elevating as well as current pain regimen. Monitor for any fevers as patient has been continuously having low- grade temps. Will continue current regimen and await finalized cultures. Patient does not currently have a primary care provider as he is new to the area and will provide resources on discharge. 01/28/2024 Patient is seen in follow-up today continuing to have low-grade temps with infectious disease following and preliminary culture showing gram-negative bacilli on urine awaiting finalized cultures to determine discharge antibiotics. Encouraged increased activity as tolerated and up and walking. Continue with as needed antipyretics. EKG was done and patient is sinus tach likely secondary to continued fevers. 01/29/2024 Patient is seen in follow-up today had a few low-grade temps noted and also white count elevated to 21 and patient reported he felt he was having stool in his urine. Urology reevaluated and general surgery consult was placed as there is concern for colo vesicle fistula. Urine culture finalized with Pseudomonas aeruginosa with infectious disease following and has transition to cefepime. Patient is starting GoLytely prep and will be planning for colonoscopy tomorrow with general surgery. at the bedside with questions and concerns that were answered to the best of our ability 01/30/2024 Patient is seen and evaluated in follow-up today undergoing colonoscopy today showing diverticulitis. Patient with no previous history of diverticulitis although mother and father history of and mother requiring surgical intervention. Patient is maintained on antibiotics in the form of cefepime and Flagyl with infectious disease following and white count has trended down currently at 12 and afebrile this morning. Plan is for possible colectomy on 01/31/2024 and patient will be n.p.o. at midnight tonight. Review of systems: Constitutional: No reports of fatigue, no fever today, occasional chills Cardiovascular: No reports of chest pain or palpitations Respiratory: No reports of shortness of breath or cough GI: No reports of nausea, vomiting, or diarrhea : No reports of dysuria or retention, continues to report discomfort of the scrotum with redness and swelling Neurovascular: reports of generalized weakness All medications have been reviewed PHYSICAL EXAMINATION: GENERAL: The patient is alert and oriented x3, appears rundown. Well developed, well nourished. HEENT: Pupils are round and equally reacting to light. EOMI. No scleral icterus. No conjunctival pallor. Normocephalic, atraumatic. No pharyngeal erythema. No thyromegaly. CARDIOVASCULAR: S1 and S2 present. No murmurs, rubs, or gallops. PULMONARY: Chest is clear to auscultation, no wheezing or crackles. ABDOMEN: Soft, nontender, nondistended, normoactive bowel sounds. No palpable organomegaly. MUSCULOSKELETAL: No joint swelling or deformity. EXTREMITIES: No cyanosis, clubbing, or pedal edema. NEUROLOGICAL: Gross neurological examination did not reveal any focal deficits. Diffusely weak SKIN: No rashes. Pale Assessment: Sepsis secondary to urinary tract infection, present on admission, cultures growing Pseudomonas aeruginosa Acute hemorrhagic cystitis Stool noted in the urine, concerns for possible colovesical fistula, status post colonoscopy revealing diverticulitis and plan is for colectomy on 01/31/2024. Strong family history of diverticulitis in mother and father GI prophylaxis DVT prophylaxis Full code Plan: Patient is continued on IV antibiotics with infectious disease following and urine cultures finalized with Pseudomonas aeruginosa. Antibiotics have been transitioned to cefepime and Flagyl and will continue. White count trending down from 21 at 12 today and currently afebrile Urology following and is concerned for possible colovesical fistula as patient was noting to have stool in the urine. General surgery following and patient is status post colonoscopy with diverticulitis noted and patient will be n.p.o. at midnight with plans of possible colectomy on 01/31/2024. Will await official surgical report Continue to ice the scrotal area and elevate as tolerated as there continues to be significant redness, swelling, and discomfort Follow-up on repeat labs and replace electrolytes per protocol. Potassium mildly low at 3.4 today and will replace. Continue monitoring for any further fevers and use antipyretics as needed Encouraged increase activity as tolerated Overall prognosis is guarded The impression and plan of care has been dictated by Jessica Rivera, Nurse Practitioner as directed. Dr. Virgen MD I have performed a history and examination and MDM of this patient, discussed the same with the dictator, and agree with the dictator's assessment and plan as written ,documented as a scribe. Based on total visit time, I have performed more than 50% of the visit. Objective - Vital Signs Vital signs: Vital Signs Temp 98 F 01/30/24 01:52 Pulse 101 H 01/30/24 01:52 Resp 16 01/30/24 01:52 BP 93/58 01/30/24 01:52 Pulse Ox 98 01/30/24 01:52 FiO2 Intake & Output 01/29/24 01/29/24 01/30/24 06:59 18:59 06:59 Intake Total 440 2350 380 Output Total 2200 Balance 440 150 380 Intake: Intake, IV Titration 440 730 380 Amount Cefepime 2 gm In Sodium 200 100 Chloride 0.9% 100 ml @ 25 mls/hr IVPB Q8HR [facility] Rx# :[id number] Sodium Chloride 0.9% 1, 440 480 280 000 ml @ 40 mls/hr IV . Q24H [facility] Rx#:[id number] cefTRIAXone 2 gm In 50 Sodium Chloride 0.9% 50 ml @ 100 mls/hr IVPB DAILY [facility] Rx#:[id number] Oral 1620 Output: Urine 2200 Other: Voiding Method Toilet Toilet Urinal Urinal # Voids 3 3 - Labs CBC & Chem 7: 01/30/24 04:51 01/30/24 04:51 Labs: Abnormal Lab Results - Last 24 Hours (Table) 01/29/24 01/29/24 01/30/24 Range/Units 05:30 05:30 04:51 WBC 21.19 H 12.8 H (4.50-10.00) X 10*3/uL RBC 3.54 L 3.33 L (4.40-5.60) X 10*6/uL Hgb 10.5 L 9.9 L D (13.0-17.0) g/dL Hct 32.6 L 30.8 L (39.6-50.0) % Immature Gran # 0.54 H (0.00-0.04) X 10*3/uL Neutrophils # 18.37 H 10.9 H (1.80-7.70) X 10*3/uL Lymphocytes # 0.75 L 0.7 L (0.90-5.00) X 10*3/uL Monocytes # 1.24 H (0.20-1.00) X 10*3/uL Basophils # 0.11 H (0.00-0.10) X 10*3/uL Sodium (137-145) mmol/L Potassium (3.5-5.1) mmol/L Creatinine (0.66-1.25) mg/dL Calcium 8.6 L (8.7-10.3) mg/dL 01/30/24 Range/Units 04:51 WBC (4.50-10.00) X 10*3/uL RBC (4.40-5.60) X 10*6/uL Hgb (13.0-17.0) g/dL Hct (39.6-50.0) % Immature Gran # (0.00-0.04) X 10*3/uL Neutrophils # (1.80-7.70) X 10*3/uL Lymphocytes # (0.90-5.00) X 10*3/uL Monocytes # (0.20-1.00) X 10*3/uL Basophils # (0.00-0.10) X 10*3/uL Sodium 133 L (137-145) mmol/L Potassium 3.4 L (3.5-5.1) mmol/L Creatinine 0.60 L (0.66-1.25) mg/dL Calcium (8.7-10.3) mg/dL Microbiology - Last 24 Hours (Table) 01/26/24 11:06 Blood Culture - Preliminary Blood
[2024-01-30] MEDS: HEPARIN SODIUM,PORCINE 5,000 UNIT/ML 1 ML VIAL SQ SCH (15:52)
[2024-01-30] MEDS: LACTATED RINGERS 1,000 ML IV SCH (17:46)
--- NOTE | 2024-01-31 06:13 | P.PN ---
Subjective Progress Note Date: 01/30/24 the patient is in the hospital with a uti and air in the bladder. It became more evident that this maybe related to a colovesical fistual when he had stool in the bladder urim=ne. I had surgery consulted. They did a colonoscopy yesterday and found a significant bowel obstructiojn c/w thae fistual His testicles feel better today Objective - Vital Signs Vital signs: Vital Signs Temp 97.8 F 01/31/24 02:00 Pulse 94 01/31/24 02:00 Resp 16 01/31/24 02:00 BP 103/64 01/31/24 02:00 Pulse Ox 97 01/31/24 02:00 FiO2 Intake & Output 01/30/24 01/30/24 01/31/24 06:59 18:59 06:59 Intake Total 380 2000 Balance 380 2000 Weight 65.771 kg Intake: IV 100 Intake, IV Titration 380 900 Amount Cefepime 2 gm In Sodium 100 200 Chloride 0.9% 100 ml @ 25 mls/hr IVPB Q8HR [facility] Rx# :[id number] Potassium Chloride 10 meq 100 In Water For Injection 1 100ml.bag @ 100 mls/hr IVPB Q1H [facility] Rx#: [id number] Sodium Chloride 0.9% 1, 280 400 000 ml @ 40 mls/hr IV . Q24H [facility] Rx#:[id number] metroNIDAZOLE-NS PMX 500 200 mg In Saline 1 100ml.bag @ 100 mls/hr IVPB Q8HR [facility] Rx#:[id number] Oral 1000 Other: Voiding Method Toilet Toilet Urinal Urinal # Voids 3 3 - Labs CBC & Chem 7: 01/30/24 04:51 01/30/24 04:51 Assessment and Plan Assessment: Impression: colovesical fistual probably related to diverticulitis causing r uti. Plan: He is to have a colectomy 01/31/[address] Quiles. The uti should clear upon removing the fistula plus the antibiotics. this has been discusse with the patient
[2024-01-31 07:13] LABS: African American GFR (CKD) >90 (>60 ml/min/1.73 sqM); Anion Gap 6 mmol/L; Blood Urea Nitrogen 9 mg/dL (9-20); Calcium 8.5 mg/dL (8.4-10.2); Carbon Dioxide 28 mmol/L (22-30); Chloride 102 mmol/L (98-107); Glucose 87 mg/dL (74-99); Non-African American GFR(CKD) >90 (>60 ml/min/1.73 sqM); Potassium 3.5 mmol/L (3.5-5.1); Sodium 136 mmol/L (137-145)
[2024-01-31 07:25] LABS: Partial Thromboplastin Time 26.1 sec (22.0-30.0); Prothrombin Time 11.4 sec (10.0-12.5)
[2024-01-31 07:27] LABS: Basophils % (A) 0 %; Eosinophils # (A) 0.2 k/uL (0-0.7); Eosinophils % (A) 4 %; HCT 29.6 % (39.0-53.0); HGB 9.7 gm/dL (13.0-17.5); Lymphocytes # (A) 0.7 k/uL (1.0-4.8); Lymphocytes % (A) 11 %; MCH 30.5 pg (25.0-35.0); MCHC 32.9 g/dL (31.0-37.0); MCV 92.8 fL (80.0-100.0); Mean Platelet Volume 8.1; Monocytes # (A) 0.5 k/uL (0-1.0); Monocytes % (A) 7 %; Neutrophils # (A) 4.9 k/uL (1.3-7.7); Neutrophils % (A) 75 %; Platelet Count 202 k/uL (150-450); RBC 3.19 m/uL (4.30-5.90); RDW 13.8 % (11.5-15.5); WBC 6.5 k/uL (3.8-10.6)
[2024-01-31] MEDS: DEXAMETHASONE SOD PHOSPHATE 4 MG/ML 1 ML VIAL IVP STA (09:35)
[2024-01-31] MEDS: MIDAZOLAM 2 MG/2 ML VIAL IVP ONE (09:47)
[2024-01-31] MEDS: fentaNYL (PF) 50 MCG/ML 2 ML AMP IVP ONE (09:48)
[2024-01-31] MEDS: FLUID CONTINUATION IV ONE (10:03)
[2024-01-31] MEDS: IV FLUID CONTINUATION 600 ML IV ONE (10:03)
[2024-01-31] MEDS: METRONIDAZOLE NS PMX IV ONE (10:03)
[2024-01-31] MEDS ORDERED: NALBUPHINE 10 MG/ML (10 ML MDV) IV PRN (10:13)
[2024-01-31] MEDS ORDERED: MORPHINE SULFATE 2 MG/ML SYRINGE IVP PRN (10:13)
--- NOTE | 2024-01-31 10:20 | P.ANPRN ---
Procedure Note - Anesthesia - Epidural/Spinal Spinal Continuous Time Out Performed: Yes Date of Procedure: 01/31/24 Procedure Start Time: 09:46 Procedure Stop Time: 09:53 Location of Patient: PreOp Indication: Acute Post-Operative Pain, Requested by Surgeon (anibal) Sedation Type: Sedate with meaningful contact maintained Preparation: Sterile Dressing Number of Attempts: 1 Position: Sitting Catheter Depth at Skin (cm): 11 Catheter: Indwelling Needle Guage: 18 Injectate: test dose negative Narrative: sterile protocol. T10 level 1 attempt. KEITH to air @ 5.5. Catheter 11 at skin Blood Aspirated: No Pain Paresthesia on Injection Noted: No Events: Uneventful and Well Tolerated
[2024-01-31] MEDS ORDERED: fentaNYL (PF) 50 MCG/ML 2 ML AMP ONE (10:56)
[2024-01-31] MEDS ORDERED: HEPARIN SODIUM,PORCINE 5,000 UNIT/ML 1 ML VIAL ONE (10:56)
[2024-01-31] MEDS ORDERED: PROPOFOL 10 MG/ML 20 ML VIAL IV ONE (10:56)
[2024-01-31] MEDS ORDERED: MIDAZOLAM 2 MG/2 ML VIAL ONE (10:56)
[2024-01-31] MEDS ORDERED: GLYCOPYRROLATE 0.2 MG/ML 2 ML VIAL ONE (10:56)
[2024-01-31] MEDS ORDERED: NEOSTIGMINE 1 MG/ML 10 ML VIAL ONE (10:56)
[2024-01-31] MEDS ORDERED: ROCURONIUM 10 MG/ML (5 ML VIAL) IV ONE (10:56)
[2024-01-31] MEDS: LACTATED RINGERS 1,000 ML IV ONE ×2 (11:25→12:04)
--- NOTE | 2024-01-31 12:31 | P.OP ---
Date of Procedure: 01/31/24 Preoperative Diagnosis: Diverticulitis with colovesical fistula Postoperative Diagnosis: Diverticulitis with colovesical fistula Procedure(s) Performed: 40 laparotomy Sigmoid colectomy Small bowel resection Repair of bladder fistula Anesthesia: KARIS Surgeon: Rogers Quiles Estimated Blood Loss (ml): 300 Pathology: other (Sigmoid colon, small bowel) Condition: stable Disposition: PACU Description of Procedure: The patient was placed on the operative table in the supine position. He received general endotracheal tube anesthesia. His abdomen was prepped and draped you sterile fashion. The patient was placed in dorsal thigh position. A low midline incision was made. The abdomen is entered. The Bookwalter tract placed the wound. There was an inflammatory mass in the sigmoid colon adherent to the bladder. There was a loop of small bowel which was partially obstructed due to the inflammatory mass this was stuck on the sigmoid colon and bladder. The small bowel was dissected off of the mass. The small bowel appeared to be inflamed. At this point decided to perform a small bowel resection. The small bowel was transected proximally distally with a RADHA stapler. And then using the LigaSure device the mesentery the bowel was divided. The specimen is approx imately 12 cm in length. A [id number] functional end-to-end stapled anastomosis then created with a RADHA and TA staplers. A 3-0 GI 6 silk suture was used as a crotch stitch. The wound of the mesentery was closed with 3-0 GI silk suture. Next the sigmoid colon was bluntly and sharply dissected off of the bladder. The fistula was visualized. The bladder appeared to be very inflamed. At this point the bladder was repaired using 2-0 chromic sutures. The fistula was closed using 2-0 chromic suture. Next the sigmoid colon was then transected proximally in the noninflamed area. And then using the LigaSure device the mesentery of the bowel was divided. The dissection went down to the level of the rectum. The rectum was then transected with the contour stapler. The specimen sent to pathology. The sigmoid colon was very inflamed. There is a significant inflammatory change on the sigmoid colon and bladder. Due to the inflammation decided not to perform a anastomosis. The sigmoid colon was brought up as a end colostomy in the left lower quadrant. The abdomen is irrigated no bleeding was seen. A JUSTIN drain was placed in the pelvis and brought out through the right abdominal wall. The fascia is closed looped #1 PDS suture. The skin was low gentry. Then the colostomy is matured with 3-0 Vicryl suture. Patient tolerated well. He was sent to recovery room in stable condition.
[2024-01-31] MEDS: ROPIVACAINE 250 MG, fentaNYL (PF) 1,250 MCG in SODIUM CHLORIDE 0.9% 175 ML EPIDURAL PRN (12:47)
--- NOTE | 2024-01-31 13:03 | P.PN ---
Subjective Progress Note Date: 01/31/24 SURGICAL PROGRESS NOTE CHIEF COMPLAINT: Colovesical fistula HISTORY OF PRESENT ILLNESS: Patient is postop day #0 status post exploratory laparotomy, sigmoid colectomy, small bowel resection and repair of bladder fistula. Patient did have fever during the night. WBC has normalized from 12.8-6.5 Hgb 9.7 PHYSICAL EXAM: VITAL SIGNS: Reviewed. GENERAL: Well-developed in no acute distress. ABDOMEN: Soft. Nondistended. NEUROLOGIC: Alert and oriented. Cranial nerves II through XII grossly intact. ASSESSMENT: 1. Colovesical fistula PLAN: -Keep patient n.p.o. today -Patient is status post bladder repair. DO NOT REMOVE GARDNER CATHETER. Gardner catheter stays in place for 10 days -Continue antibiotics -Continue epidural for pain management -Continue IV fluid -GI prophylaxis Protonix and DVT prophylaxis subcu heparin Physician Hand Tube Bender note has been reviewed by physician. Signing provider agrees with the documented findings, assessment, and plan of care. Objective - Vital Signs Vital signs: Vital Signs Temp 98 F 01/31/24 08:00 Pulse 79 01/31/24 10:02 Resp 18 01/31/24 10:02 BP 109/68 01/31/24 10:02 Pulse Ox 100 01/31/24 10:02 FiO2 Intake & Output 01/30/24 01/31/24 01/31/24 18:59 06:59 18:59 Intake Total 1999 2150 Output Total 375 Balance 1999 177 Weight 65.771 kg Intake: IV 100 2150 Intake, IV Titration 900 Amount Cefepime 2 gm In Sodium 200 Chloride 0.9% 100 ml @ 25 mls/hr IVPB Q8HR [facility] Rx# :[id number] Potassium Chloride 10 meq 100 In Water For Injection 1 100ml.bag @ 100 mls/hr IVPB Q1H [facility] Rx#: [id number] Sodium Chloride 0.9% 1, 400 000 ml @ 40 mls/hr IV . Q24H [facility] Rx#:[id number] metroNIDAZOLE-NS PMX 500 200 mg In Saline 1 100ml.bag @ 100 mls/hr IVPB Q8HR [facility] Rx#:[id number] Oral 1000 Output: Urine 300 Estimated Blood Loss 75 Other: Voiding Method Toilet Urinal # Voids 3 3 - Labs CBC & Chem 7: 01/31/24 05:47 01/31/24 05:47 Labs: Abnormal Lab Results - Last 24 Hours (Table) 01/31/24 01/31/24 Range/Units 05:47 05:47 RBC 3.19 L (4.30-5.90) m/uL Hgb 9.7 L (13.0-17.5) gm/dL Hct 29.6 L (39.0-53.0) % Lymphocytes # 0.7 L (1.0-4.8) k/uL Sodium 136 L (137-145) mmol/L
[2024-01-31] MEDS: ALBUMIN HUMAN 5% 250 ML in EMPTY BAG 1 BAG IVPB STA (13:06)
[2024-01-31 13:18] LABS: Basophils % (A) 0 %; Eosinophils # (A) 0.1 k/uL (0-0.7); Eosinophils % (A) 1 %; HCT 33.1 % (39.0-53.0); HGB 10.9 gm/dL (13.0-17.5); Hypochromasia Slight; Lymphocytes # (A) 0.4 k/uL (1.0-4.8); Lymphocytes % (A) 5 %; MCH 31.1 pg (25.0-35.0); MCHC 32.8 g/dL (31.0-37.0); MCV 94.8 fL (80.0-100.0); Monocytes # (A) 0.2 k/uL (0-1.0); Monocytes % (A) 3 %; Neutrophils # (A) 7.4 k/uL (1.3-7.7); Neutrophils % (A) 90 %; Platelet Count 231 k/uL (150-450); RDW 13.5 % (11.5-15.5); WBC 8.2 k/uL (3.8-10.6)
[2024-01-31 13:56] LABS: African American GFR (CKD) >90 (>60 ml/min/1.73 sqM); Anion Gap 4 mmol/L; Blood Urea Nitrogen 11 mg/dL (9-20); Carbon Dioxide 26 mmol/L (22-30); Chloride 106 mmol/L (98-107); Glucose 106 mg/dL (74-99); Non-African American GFR(CKD) >90 (>60 ml/min/1.73 sqM); Potassium 3.8 mmol/L (3.5-5.1); Sodium 136 mmol/L (137-145)
[2024-01-31] MEDS: D5-0.45% NACL WITH KCL 20MEQ/L 1,000 ML IV SCH (17:20)
[2024-01-31] MEDS: BENZOCAINE/MENTHOL LOZENG 1 EACH LOZENGE MUCOUS MEM PRN (20:39)
[2024-01-31] MEDS: diphenhydrAMINE 50 MG/ML 1 ML VIAL IVP PRN (23:47)
--- NOTE | 2024-02-01 07:34 | P.PN ---
Subjective Progress Note Date: 01/31/24 History of present illness; patient is a 43-year-old gentleman with no significant past medical history who presents the ER because of burning pain while urination. Patient states that he was all right 1 month back when he started noticing that he was having increased frequency of urination and burning while peeing. Patient was also noticing increasing odor in his urine. Patient also complained of hematuria. Patient denies any fever or chills at the time. Patient does not have a PCP and did a telemedicine visit at which time he was prescribed Bactrim and completed the course for 1 week. Following that patient stated that for the last 3 days he noticed that once again he was having burning pain while urination. Patient also complaining of hematuria again. There was also complaint of fever and chills at home. There was no complaint of nausea or vomiting. Denies any abdominal pain. There was no complaint of weight loss. Because of these symptoms patient presented the ER Initial lab work done in the ER showed WBC 7.7, hemoglobin 12.9, sodium 132, potassium 3.8, BUN 10, creatinine 0.74, glucose 120, lactate 1.3, AST 26, ALT 26, UA showed large amount of blood, urine WBC greater than 182, large amount leukocyte esterase CT abdominal pelvis done showed haziness around the urinary bladder with bladder wall prominence and gas in the bladder lumen for gas-forming cystitis/hemorrh agic cystitis Patient admitted to internal medicine service 01/27/2024 Patient is admitted and seen in follow-up this morning continues with significant testicular pain and swelling with redness with urology and infectious disease following. Preliminary culture showing gram-negative bacilli and awaiting finalized cultures to determine discharge antibiotics. Patient to continue with icing the scrotal area and elevating as well as current pain regimen. Monitor for any fevers as patient has been continuously having low- grade temps. Will continue current regimen and await finalized cultures. Patient does not currently have a primary care provider as he is new to the area and will provide resources on discharge. 01/28/2024 Patient is seen in follow-up today continuing to have low-grade temps with infectious disease following and preliminary culture showing gram-negative bacilli on urine awaiting finalized cultures to determine discharge antibiotics. Encouraged increased activity as tolerated and up and walking. Continue with as needed antipyretics. EKG was done and patient is sinus tach likely secondary to continued fevers. 01/29/2024 Patient is seen in follow-up today had a few low-grade temps noted and also white count elevated to 21 and patient reported he felt he was having stool in his urine. Urology reevaluated and general surgery consult was placed as there is concern for colo vesicle fistula. Urine culture finalized with Pseudomonas aeruginosa with infectious disease following and has transition to cefepime. Patient is starting GoLytely prep and will be planning for colonoscopy tomorrow with general surgery. at the bedside with questions and concerns that were answered to the best of our ability 01/30/2024 Patient is seen and evaluated in follow-up today undergoing colonoscopy today showing diverticulitis. Patient with no previous history of diverticulitis although mother and father history of and mother requiring surgical intervention. Patient is maintained on antibiotics in the form of cefepime and Flagyl with infectious disease following and white count has trended down currently at 12 and afebrile this morning. Plan is for possible colectomy on 01/31/2024 and patient will be n.p.o. at midnight tonight. 01/31/2024 Patient seen in follow-up scheduled for surgery with general surgery and plan is for possible colectomy and will await official report. Patient afebrile overnight maintained on antibiotics with infectious disease following along with urology and will continue current regimen. Patient is currently n.p.o. and will await surgery recommendations regarding when to resume diet. Review of systems: Constitutional: No reports of fatigue, no fever today, occasional chills Cardiovascular: No reports of chest pain or palpitations Respiratory: No reports of shortness of breath or cough GI: No reports of nausea, vomiting, or diarrhea : No reports of dysuria or retention, continues to report discomfort of the sc rotum with redness and swelling Neurovascular: reports of generalized weakness All medications have been reviewed PHYSICAL EXAMINATION: GENERAL: The patient is alert and oriented x3, appears rundown. Well developed, well nourished. HEENT: Pupils are round and equally reacting to light. EOMI. No scleral icterus. No conjunctival pallor. Normocephalic, atraumatic. No pharyngeal erythema. No th yromegaly. CARDIOVASCULAR: S1 and S2 present. No murmurs, rubs, or gallops. PULMONARY: Chest is clear to auscultation, no wheezing or crackles. ABDOMEN: Soft, nontender, nondistended, normoactive bowel sounds. No palpable organomegaly. MUSCULOSKELETAL: No joint swelling or deformity. EXTREMITIES: No cyanosis, clubbing, or pedal edema. NEUROLOGICAL: Gross neurological examination did not reveal any focal deficits. Diffusely weak SKIN: No rashes. Pale Assessment: Sepsis multifactorial, present on admission likely secondary to diverticulitis with a colovesical fistula causing a urinary tract infection, cultures growing Pseudomonas aeruginosa Acute hemorrhagic cystitis Stool noted in the urine, concerns for possible colovesical fistula, status post colonoscopy revealing diverticulitis and plan is for colectomy today 01/31/2024. Strong family history of diverticulitis in mother and father GI prophylaxis DVT prophylaxis Full code Plan: Patient is continued on IV antibiotics with infectious disease following and urine cultures finalized with Pseudomonas aeruginosa. Antibiotics have been transitioned to cefepime and Flagyl and will continue. White count has normalized and patient is afebrile. Urology following and is concerned for possible colovesical fistula as patient was noting to have stool in the urine. General surgery following and patient is status post colonoscopy with diverticulitis noted and scheduled for colectomy today. Will await official OR report Continue to ice the scrotal area and elevate as tolerated as there continues to be significant redness, swelling, and discomfort Follow-up on repeat labs and replace electrolytes per protocol. Continue monitoring for any further fevers and use antipyretics as needed Encouraged increase activity as tolerated Overall prognosis is guarded The impression and plan of care has been dictated by Jessica Rivera, Nurse Practitioner as directed. Dr. Virgen MD I have performed a history and examination and MDM of this patient, discussed the same with the dictator, and agree with the dictator's assessment and plan as written ,documented as a scribe. Based on total visit time, I have performed more than 50% of the visit. Objective - Vital Signs Vital signs: Vital Signs Temp 98 F 01/31/24 08:00 Pulse 79 01/31/24 10:02 Resp 18 01/31/24 10:02 BP 109/68 01/31/24 10:02 Pulse Ox 100 01/31/24 10:02 FiO2 Intake & Output 01/30/24 01/31/24 01/31/24 18:59 06:59 18:59 Intake Total 1999 Balance 1999 Weight 65.771 kg Intake: IV 100 Intake, IV Titration 900 Amount Cefepime 2 gm In Sodium 200 Chloride 0.9% 100 ml @ 25 mls/hr IVPB Q8HR [facility] Rx# :[id number] Potassium Chloride 10 meq 100 In Water For Injection 1 100ml.bag @ 100 mls/hr IVPB Q1H [facility] Rx#: [id number] Sodium Chloride 0.9% 1, 400 000 ml @ 40 mls/hr IV . Q24H [facility] Rx#:[id number] metroNIDAZOLE-NS PMX 500 200 mg In Saline 1 100ml.bag @ 100 mls/hr IVPB Q8HR [facility] Rx#:[id number] Oral 1000 Other: Voiding Method Toilet Urinal # Voids 3 3 - Labs CBC & Chem 7: 01/31/24 13:03 01/31/24 13:03 Labs: Abnormal Lab Results - Last 24 Hours (Table) 01/31/24 01/31/24 Range/Units 05:47 05:47 RBC 3.19 L (4.30-5.90) m/uL Hgb 9.7 L (13.0-17.5) gm/dL Hct 29.6 L (39.0-53.0) % Lymphocytes # 0.7 L (1.0-4.8) k/uL Sodium 136 L (137-145) mmol/L
[2024-02-01] MEDS: SIMETHICONE 40 MG/0.6 ML DROPS 2,000 MG/30 ML BOTTLE PO PRN (08:08)
[2024-02-01 09:52] LABS: Basophils # (A) 0.1 k/uL (0-0.2); Basophils % (A) 1 %; Eosinophils # (A) 0.2 k/uL (0-0.7); Eosinophils % (A) 1 %; HCT 38.8 % (39.0-53.0); HGB 12.2 gm/dL (13.0-17.5); Lymphocytes # (A) 1.1 k/uL (1.0-4.8); Lymphocytes % (A) 8 %; MCH 29.6 pg (25.0-35.0); MCHC 31.5 g/dL (31.0-37.0); MCV 93.9 fL (80.0-100.0); Mean Platelet Volume 7.3; Monocytes # (A) 0.6 k/uL (0-1.0); Monocytes % (A) 4 %; Neutrophils # (A) 11.8 k/uL (1.3-7.7); Neutrophils % (A) 83 %; Platelet Count 369 k/uL (150-450); RBC 4.14 m/uL (4.30-5.90); RDW 13.7 % (11.5-15.5); WBC 14.2 k/uL (3.8-10.6)
[2024-02-01 10:13] LABS: ALT 37 U/L (4-49); AST 24 U/L (17-59); African American GFR (CKD) >90 (>60 ml/min/1.73 sqM); Albumin/Globulin Ratio 1.1; Alkaline Phosphatase 154 U/L (38-126); Anion Gap 5 mmol/L; Blood Urea Nitrogen 16 mg/dL (9-20); Calcium 8.7 mg/dL (8.4-10.2); Carbon Dioxide 26 mmol/L (22-30); Chloride 103 mmol/L (98-107); Globulin 2.8 g/dL; Glucose 145 mg/dL (74-99); Non-African American GFR(CKD) >90 (>60 ml/min/1.73 sqM); Potassium 4.1 mmol/L (3.5-5.1); Sodium 134 mmol/L (137-145); Total Bilirubin 0.6 mg/dL (0.2-1.3); Total Protein 5.8 g/dL (6.3-8.2)
--- NOTE | 2024-02-01 10:44 | P.PN ---
Subjective Progress Note Date: 02/01/24 NAEON. No N/V. No SOB or CP. No ambulation since OR. No F/C. Tolerating sips of CLD. Objective - Vital Signs Vital signs: Vital Signs Temp 98.2 F 02/01/24 07:13 Pulse 84 02/01/24 07:13 Resp 15 02/01/24 07:13 BP 137/89 02/01/24 07:13 Pulse Ox 99 02/01/24 07:13 FiO2 Intake & Output 01/31/24 02/01/24 02/01/24 18:59 06:59 18:59 Intake Total 2417 1702.350 58.6 Output Total 450 1055 Balance 1967 647.350 58.6 Weight 65.771 kg Intake: IV 2417 Intake, IV Titration 82.350 58.6 Amount Ropivacaine 250 mg 82.350 58.6 fentaNYL (PF) 1,250 mcg In Sodium Chloride 0.9% 175 ml @ Per Protocol EPIDURAL .Q0M PRN Rx#: [id number] Oral 0 1620 Output: Gastric Drainage 125 Drainage 180 Right 180 Urine 375 750 Estimated Blood Loss 75 Other: Voiding Method Indwelling Catheter - Exam Gen: AxO, NAD Pulm: non-labored respirations Abd: soft, tender around incisions. Mildly distended Ostomy: pink and patent, bowel sweat seen in bag Extrem: no edema seen - Labs CBC & Chem 7: 02/01/24 09:30 02/01/24 09:30 Labs: Abnormal Lab Results - Last 24 Hours (Table) 01/31/24 01/31/24 02/01/24 Range/Units 13:03 13:03 09:30 WBC 14.2 H (3.8-10.6) k/uL RBC 3.50 L 4.14 L (4.30-5.90) m/uL Hgb 10.9 L 12.2 L (13.0-17.5) gm/dL Hct 33.1 L 38.8 L (39.0-53.0) % Neutrophils # 11.8 H (1.3-7.7) k/uL Lymphocytes # 0.4 L (1.0-4.8) k/uL Sodium 136 L (137-145) mmol/L Creatinine 0.57 L (0.66-1.25) mg/dL Glucose 106 H (74-99) mg/dL Calcium 8.0 L (8.4-10.2) mg/dL Alkaline Phosphatase (38-126) U/L Total Protein (6.3-8.2) g/dL Albumin (3.5-5.0) g/dL 02/01/24 Range/Units 09:30 WBC (3.8-10.6) k/uL RBC (4.30-5.90) m/uL Hgb (13.0-17.5) gm/dL Hct (39.0-53.0) % Neutrophils # (1.3-7.7) k/uL Lymphocytes # (1.0-4.8) k/uL Sodium 134 L (137-145) mmol/L Creatinine (0.66-1.25) mg/dL Glucose 145 H (74-99) mg/dL Calcium (8.4-10.2) mg/dL Alkaline Phosphatase 154 H (38-126) U/L Total Protein 5.8 L (6.3-8.2) g/dL Albumin 3.0 L (3.5-5.0) g/dL Microbiology - Last 24 Hours (Table) 01/26/24 11:06 Blood Culture - Final Blood Assessment and Plan Assessment: Patient is a 43 year old male who is POD#1 from sigmoid colectomy, end colostomy, small bowel resection, takedown of colovescular fistula with bladder repair Plan: -CLD -IVF hydration -Strict I/O -PRN pain and nausea control -Encourage ambulation -DVT/GI PPX -Continue carlin catheter due to bladder repair Paulino Hope M.D. General Surgery
--- NOTE | 2024-02-01 13:31 | P.PN ---
Progress Note - Text Progress Note Date: 02/01/24 Postoperative day #1 status post right colectomy and small bowel resection ,epidural catheter placed for postoperative analgesia, patient doing well epidural site okay, patient currently on combination of epidural infusion solution of Ropivacaine 0.0625% and fentanyl 2 g per mL the infusion rate started at 8 ml per hour , and increased overnight to 12 mL/h, patient had no motor deficit ,epidural site okay , vital signs stable ,VAS 8 /10 , Assessment and plan= post operative day # 1, patient having significant pain epidural infusion increased from 8-12 or night, increased gradually, and patient currently complaining of pain for this reason I will patient a bolus of lidocaine 1% 10 mL and continue infusion at 12 mL/h, after the bolus was given patient report his pain decreased from 8/10 , to 0-1/10, continue the current management
--- NOTE | 2024-02-01 14:43 | P.PN ---
Subjective Progress Note Date: 01/31/24 Principal diagnosis: Reason for follow-up is sepsis/UTI Patient is a 43-year-old male with no significant past medical history presenting to the hospital for evaluation of lower abdominal pain and blood in the urine, patient mention he did have symptoms going on with the burning of urination that has been almost for about a month with acute worsening over a day or 2 before presented to the hospital abdominal pain and hematuria patient was noted to be septic secondary to urinary source, with subsequent diagnosis of complicated diverticulitis with a colovesical fistula for which patient is status post laparotomy sigmoid colectomy small bowel resection and repair of the bladder fistula procedure completed on 01/31/2024. On today's evaluation that is 01/31/2024, the patient continues to be afebrile, the patient is on room air and breathing comfortably, the Pt denies having any chest pain or cough, the patient denies having any nausea vomiting abdominal pain is currently controlled. Patient white count normal at 8.2, creatinine 0.57 Objective - Vital Signs Vital signs: Vital Signs Temp 98 F 01/31/24 08:00 Pulse 79 01/31/24 10:02 Resp 18 01/31/24 10:02 BP 109/68 01/31/24 10:02 Pulse Ox 100 01/31/24 10:02 FiO2 Intake & Output 01/30/24 01/31/24 01/31/24 18:59 06:59 18:59 Intake Total 1999 350 Balance 1999 350 Weight 65.771 kg Intake: IV 100 350 Intake, IV Titration 900 Amount Cefepime 2 gm In Sodium 200 Chloride 0.9% 100 ml @ 25 mls/hr IVPB Q8HR [facility] Rx# :[id number] Potassium Chloride 10 meq 100 In Water For Injection 1 100ml.bag @ 100 mls/hr IVPB Q1H [facility] Rx#: [id number] Sodium Chloride 0.9% 1, 400 000 ml @ 40 mls/hr IV . Q24H [facility] Rx#:[id number] metroNIDAZOLE-NS PMX 500 200 mg In Saline 1 100ml.bag @ 100 mls/hr IVPB Q8HR [facility] Rx#:[id number] Oral 1000 Other: Voiding Method Toilet Urinal # Voids 3 3 - Exam GENERAL DESCRIPTION: Middle-age male lying in bed in no distress RESPIRATORY SYSTEM: Unlabored breathing , decreased breath sounds at bases HEART: S1 S2 regular rate and rhythm , ABDOMEN: Soft , mild lower abdominal tenderness EXTREMITIES: No edema feet - Labs CBC & Chem 7: 02/01/24 09:30 02/01/24 09:30 Labs: Abnormal Lab Results - Last 24 Hours (Table) 01/31/24 01/31/24 Range/Units 05:47 05:47 RBC 3.19 L (4.30-5.90) m/uL Hgb 9.7 L (13.0-17.5) gm/dL Hct 29.6 L (39.0-53.0) % Lymphocytes # 0.7 L (1.0-4.8) k/uL Sodium 136 L (137-145) mmol/L Assessment and Plan (1) Sepsis Current Visit: Yes Status: Acute Code(s): A41.9 - SEPSIS, UNSPECIFIED ORGANISM SNOMED Code(s): 25501161 (2) Emphysematous cystitis Current Visit: Yes Status: Acute Code(s): N30.80 - OTHER CYSTITIS WITHOUT HEMATURIA SNOMED Code(s): 61931839 (3) Pseudomonas aeruginosa infection Current Visit: Yes Status: Acute Code(s): A49.8 - OTHER BACTERIAL INFECTIONS OF UNSPECIFIED SITE SNOMED Code(s): 70155234 Plan: 1patient presented to hospital with sepsis in this patient who did have fever tachycardia elevated white count meeting criteria for SIRS source is emphysematous cystitis and likely from enteric gram-negative pathogen. 2patient during hospital stay reported stool through his ureter concerning for colovesical fistula General Surgery has done colonoscopy followed by laparotomy sigmoid colectomy small bowel resection and repair of the bladder fistula 3-urine has been finalized with Pseudomonas aeruginosa 4patient did have resolution of his fever white count is normalized patient is covered with cefepime and Flagyl multiple question answered Dictation was produced using [employer] dictation software. please excuse any grammatical, word or spelling errors. Time with Patient: Less than 30
--- NOTE | 2024-02-01 14:43 | P.PN ---
Subjective Progress Note Date: 02/01/24 Principal diagnosis: Reason for follow-up is sepsis/UTI Patient is a 43-year-old male with no significant past medical history presenting to the hospital for evaluation of lower abdominal pain and blood in the urine, patient mention he did have symptoms going on with the burning of urination that has been almost for about a month with acute worsening over a day or 2 before presented to the hospital abdominal pain and hematuria patient was noted to be septic secondary to urinary source, with subsequent diagnosis of complicated diverticulitis with a colovesical fistula for which patient is status post laparotomy sigmoid colectomy small bowel resection and repair of the bladder fistula procedure completed on 01/31/2024. On today's evaluation that is 02/01/2024, patient did not have any fever and denies any chills, patient is complaining of some shortness of breath and more abdominal pain today still on the DIG[employer]GER right medication has been adjusted by the anesthesia some nausea but no vomiting. Patient white count is up to 14.2 today, creatinine 0.68 Objective - Vital Signs Vital signs: Vital Signs Temp 97.6 F 02/01/24 11:59 Pulse 100 02/01/24 11:59 Resp 16 02/01/24 11:59 BP 146/92 02/01/24 11:59 Pulse Ox 97 02/01/24 11:59 FiO2 Intake & Output 01/31/24 02/01/24 02/01/24 18:59 06:59 18:59 Intake Total 2417 1702.350 58.6 Output Total 450 1055 260 Balance 1967 647.350 -201.4 Weight 65.771 kg Intake: IV 2417 Intake, IV Titration 82.350 58.6 Amount Ropivacaine 250 mg 82.350 58.6 fentaNYL (PF) 1,250 mcg In Sodium Chloride 0.9% 175 ml @ Per Protocol EPIDURAL .Q0M PRN Rx#: [id number] Oral 0 1620 Output: Gastric Drainage 125 Drainage 180 260 Right 180 260 Urine 375 750 Estimated Blood Loss 75 Other: Voiding Method Indwelling Catheter Indwelling Catheter - Exam GENERAL DESCRIPTION: Middle-age male lying in bed in no distress RESPIRATORY SYSTEM: Unlabored breathing , decreased breath sounds at bases HEART: S1 S2 regular rate and rhythm , ABDOMEN: Soft , mild lower abdominal tenderness EXTREMITIES: No edema feet - Labs CBC & Chem 7: 02/01/24 09:30 02/01/24 09:30 Labs: Abnormal Lab Results - Last 24 Hours (Table) 02/01/24 02/01/24 Range/Units 09:30 09:30 WBC 14.2 H (3.8-10.6) k/uL RBC 4.14 L (4.30-5.90) m/uL Hgb 12.2 L (13.0-17.5) gm/dL Hct 38.8 L (39.0-53.0) % Neutrophils # 11.8 H (1.3-7.7) k/uL Sodium 134 L (137-145) mmol/L Glucose 145 H (74-99) mg/dL Alkaline Phosphatase 154 H (38-126) U/L Total Protein 5.8 L (6.3-8.2) g/dL Albumin 3.0 L (3.5-5.0) g/dL Microbiology - Last 24 Hours (Table) 01/26/24 11:06 Blood Culture - Final Blood Assessment and Plan (1) Sepsis Current Visit: Yes Status: Acute Code(s): A41.9 - SEPSIS, UNSPECIFIED ORGANISM SNOMED Code(s): 19161856 (2) Emphysematous cystitis Current Visit: Yes Status: Acute Code(s): N30.80 - OTHER CYSTITIS WITHOUT HEMATURIA SNOMED Code(s): 28371587 (3) Pseudomonas aeruginosa infection Current Visit: Yes Status: Acute Code(s): A49.8 - OTHER BACTERIAL INFECTIONS OF UNSPECIFIED SITE SNOMED Code(s): 12763268 Plan: 1patient presented to hospital with sepsis in this patient who did have fever tachycardia elevated white count meeting criteria for SIRS source is emphysematous cystitis and likely from enteric gram-negative pathogen. 2patient during hospital stay reported stool through his ureter concerning for colovesical fistula General Surgery has done colonoscopy followed by laparotomy sigmoid colectomy small bowel resection and repair of the bladder fistula 3-urine has been finalized with Pseudomonas aeruginosa 4patient did have slight worsening of the white count possible reactive postsurgery will be monitored closely patient will be treated with cefepime and Flagyl multiple question answered encouraged to use incentive spirometry pain control per surgery and admitting team Dictation was produced using [employer] dictation software. please excuse any grammatical, word or spelling errors. Time with Patient: Less than 30
[2024-02-02] MEDS: ONDANSETRON 4 MG/2 ML VIAL IVP PRN (05:56)
--- NOTE | 2024-02-02 08:04 | P.PN ---
Subjective Progress Note Date: 02/01/24 History of present illness; patient is a 43-year-old gentleman with no significant past medical history who presents the ER because of burning pain while urination. Patient states that he was all right 1 month back when he started noticing that he was having increased frequency of urination and burning while peeing. Patient was also noticing increasing odor in his urine. Patient also complained of hematuria. Patient denies any fever or chills at the time. Patient does not have a PCP and did a telemedicine visit at which time he was prescribed Bactrim and completed the course for 1 week. Following that patient stated that for the last 3 days he noticed that once again he was having burning pain while urination. Patient also complaining of hematuria again. There was also complaint of fever and chills at home. There was no complaint of nausea or vomiting. Denies any abdominal pain. There was no complaint of weight loss. Because of these symptoms patient presented the ER Initial lab work done in the ER showed WBC 7.7, hemoglobin 12.9, sodium 132, potassium 3.8, BUN 10, creatinine 0.74, glucose 120, lactate 1.3, AST 26, ALT 26, UA showed large amount of blood, urine WBC greater than 182, large amount leukocyte esterase CT abdominal pelvis done showed haziness around the urinary bladder with bladder wall prominence and gas in the bladder lumen for gas-forming cystitis/hemorrh agic cystitis Patient admitted to internal medicine service 01/27/2024 Patient is admitted and seen in follow-up this morning continues with significant testicular pain and swelling with redness with urology and infectious disease following. Preliminary culture showing gram-negative bacilli and awaiting finalized cultures to determine discharge antibiotics. Patient to continue with icing the scrotal area and elevating as well as current pain regimen. Monitor for any fevers as patient has been continuously having low- grade temps. Will continue current regimen and await finalized cultures. Patient does not currently have a primary care provider as he is new to the area and will provide resources on discharge. 01/28/2024 Patient is seen in follow-up today continuing to have low-grade temps with infectious disease following and preliminary culture showing gram-negative bacilli on urine awaiting finalized cultures to determine discharge antibiotics. Encouraged increased activity as tolerated and up and walking. Continue with as needed antipyretics. EKG was done and patient is sinus tach likely secondary to continued fevers. 01/29/2024 Patient is seen in follow-up today had a few low-grade temps noted and also white count elevated to 21 and patient reported he felt he was having stool in his urine. Urology reevaluated and general surgery consult was placed as there is concern for colo vesicle fistula. Urine culture finalized with Pseudomonas aeruginosa with infectious disease following and has transition to cefepime. Patient is starting GoLytely prep and will be planning for colonoscopy tomorrow with general surgery. at the bedside with questions and concerns that were answered to the best of our ability 01/30/2024 Patient is seen and evaluated in follow-up today undergoing colonoscopy today showing diverticulitis. Patient with no previous history of diverticulitis although mother and father history of and mother requiring surgical intervention. Patient is maintained on antibiotics in the form of cefepime and Flagyl with infectious disease following and white count has trended down currently at 12 and afebrile this morning. Plan is for possible colectomy on 01/31/2024 and patient will be n.p.o. at midnight tonight. 01/31/2024 Patient seen in follow-up scheduled for surgery with general surgery and plan is for possible colectomy and will await official report. Patient afebrile overnight maintained on antibiotics with infectious disease following along with urology and will continue current regimen. Patient is currently n.p.o. and will await surgery recommendations regarding when to resume diet. 02/01/2024 Patient is seen in follow-up status post sigmoid colectomy and repair of bladder fistula with indwelling Lay catheter. Patient is to continue with indwelling Lay catheter for minimum 10 days per surgery. Multiple consultations including infectious disease, pain management, general surgery, urology following. Patient is continued on IV antibiotics and will continue and monitor clinically. Patient started on clears and will slowly advance as tolerated per surgery. Patient continues with epidural pump and having significant pain per nursing staff attempting to achieve better pain management. Anesthesia follo wing making adjustments to the epidural pump. Review of systems: Constitutional: No reports of fatigue, no fever today, anxious Cardiovascular: No reports of chest pain or palpitations Respiratory: No reports of shortness of breath or cough GI: No reports of nausea, vomiting, or diarrhea, not passing gas and no bowel movement as of yet : No reports of dysuria or retention, has some scrotal swelling and discomfort, continues with indwelling Lay catheter per surgery for bladder repair Neurovascular: reports of generalized weakness All medications have been reviewed PHYSICAL EXAMINATION: GENERAL: The patient is alert and oriented x3, appears exhausted. Well developed, well nourished. HEENT: Pupils are round and equally reacting to light. EOMI. No scleral icterus. No conjunctival pallor. Normocephalic, atraumatic. No pharyngeal erythema. No thyromegaly. CARDIOVASCULAR: S1 and S2 present. No murmurs, rubs, or gallops. PULMONARY: Chest is clear to auscultation, no wheezing or crackles. ABDOMEN: Soft, tender, nondistended, normoactive bowel sounds. No palpable organomegaly. MUSCULOSKELETAL: No joint swelling or deformity. EXTREMITIES: No cyanosis, clubbing, or pedal edema. NEUROLOGICAL: Gross neurological examination did not reveal any focal deficits. Diffusely weak SKIN: No rashes. Pale Assessment: Sepsis multifactorial, present on admission likely secondary to diverticulitis with a colovesical fistula causing a urinary tract infection, cultures growing Pseudomonas aeruginosa Acute hemorrhagic cystitis Stool noted in the urine, concerns for possible colovesical fistula, status post colonoscopy revealing diverticulitis and status post sigmoid colectomy as well as urinary bladder repair today 01/31/2024. Strong family history of diverticulitis in mother and father GI prophylaxis DVT prophylaxis Full code Plan: Patient is continued on IV antibiotics with infectious disease following and urine cultures finalized with Pseudomonas aeruginosa. Antibiotics have been transitioned to cefepime and Flagyl and will continue. White count has normalized and patient is afebrile. Urology following and is concerned for possible colovesical fistula as patient w as noting to have stool in the urine. Will need outpatient follow-up with urology General surgery following and patient is status post colonoscopy with diverticulitis noted and underwent sigmoid colectomy with urinary bladder fissure repair on 01/31/2024. Continue pain management per anesthesia and general surgery. Patient does have indwelling Lay catheter And is to continue per surgery without removing for minimum 10 days. Only remove Lay catheter if cleared by general surgery Continue to ice the scrotal area and elevate as tolerated as there continues to be significant redness, swelling, and discomfort Follow-up on repeat labs and replace electrolytes per protocol. Continue monitoring for any further fevers and use antipyretics as needed Encouraged increase activity as tolerated Overall prognosis is guarded The impression and plan of care has been dictated by Jessica Rivera, Nurse Practitioner as directed. Dr. Virgen MD I have performed a history and examination and MDM of this patient, discussed the same with the dictator, and agree with the dictator's assessment and plan as written ,documented as a scribe. Based on total visit time, I have performed more than 50% of the visit. Objective - Vital Signs Vital signs: Vital Signs Temp 98.2 F 02/01/24 07:13 Pulse 84 02/01/24 07:13 Resp 15 02/01/24 07:13 BP 137/89 02/01/24 07:13 Pulse Ox 99 02/01/24 07:13 FiO2 Intake & Output 01/31/24 02/01/24 02/01/24 18:59 06:59 18:59 Intake Total 2417 1702.350 58.6 Output Total 450 1055 Balance 1967 647.350 58.6 Weight 65.771 kg Intake: IV 2417 Intake, IV Titration 82.350 58.6 Amount Ropivacaine 250 mg 82.350 58.6 fentaNYL (PF) 1,250 mcg In Sodium Chloride 0.9% 175 ml @ Per Protocol EPIDURAL .Q0M PRN Rx#: [id number] Oral 0 1620 Output: Gastric Drainage 125 Drainage 180 Right 180 Urine 375 750 Estimated Blood Loss 75 Other: Voiding Method Indwelling Catheter - Labs CBC & Chem 7: 02/01/24 09:30 02/01/24 09:30 Labs: Abnormal Lab Results - Last 24 Hours (Table) 01/31/24 01/31/24 02/01/24 Range/Units 13:03 13:03 09:30 WBC 14.2 H (3.8-10.6) k/uL RBC 3.50 L 4.14 L (4.30-5.90) m/uL Hgb 10.9 L 12.2 L (13.0-17.5) gm/dL Hct 33.1 L 38.8 L (39.0-53.0) % Neutrophils # 11.8 H (1.3-7.7) k/uL Lymphocytes # 0.4 L (1.0-4.8) k/uL Sodium 136 L (137-145) mmol/L Creatinine 0.57 L (0.66-1.25) mg/dL Glucose 106 H (74-99) mg/dL Calcium 8.0 L (8.4-10.2) mg/dL Alkaline Phosphatase (38-126) U/L Total Protein (6.3-8.2) g/dL Albumin (3.5-5.0) g/dL 02/01/24 Range/Units 09:30 WBC (3.8-10.6) k/uL RBC (4.30-5.90) m/uL Hgb (13.0-17.5) gm/dL Hct (39.0-53.0) % Neutrophils # (1.3-7.7) k/uL Lymphocytes # (1.0-4.8) k/uL Sodium 134 L (137-145) mmol/L Creatinine (0.66-1.25) mg/dL Glucose 145 H (74-99) mg/dL Calcium (8.4-10.2) mg/dL Alkaline Phosphatase 154 H (38-126) U/L Total Protein 5.8 L (6.3-8.2) g/dL Albumin 3.0 L (3.5-5.0) g/dL Microbiology - Last 24 Hours (Table) 01/26/24 11:06 Blood Culture - Final Blood
[2024-02-02 08:30] LABS: Basophils # (A) 0.1 k/uL (0-0.2); Basophils % (A) 1 %; Eosinophils # (A) 0.3 k/uL (0-0.7); Eosinophils % (A) 3 %; HCT 36.5 % (39.0-53.0); HGB 11.9 gm/dL (13.0-17.5); Lymphocytes # (A) 1.3 k/uL (1.0-4.8); Lymphocytes % (A) 10 %; MCH 30.2 pg (25.0-35.0); MCHC 32.6 g/dL (31.0-37.0); MCV 92.6 fL (80.0-100.0); Mean Platelet Volume 7.7; Monocytes # (A) 0.6 k/uL (0-1.0); Monocytes % (A) 4 %; Neutrophils # (A) 10.4 k/uL (1.3-7.7); Neutrophils % (A) 78 %; Platelet Count 405 k/uL (150-450); RBC 3.94 m/uL (4.30-5.90); RDW 14.2 % (11.5-15.5); WBC 13.3 k/uL (3.8-10.6)
[2024-02-02 08:40] LABS: ALT 26 U/L (4-49); AST 21 U/L (17-59); African American GFR (CKD) >90 (>60 ml/min/1.73 sqM); Albumin 2.7 g/dL (3.5-5.0); Alkaline Phosphatase 120 U/L (38-126); Anion Gap 2 mmol/L; Blood Urea Nitrogen 17 mg/dL (9-20); Calcium 8.5 mg/dL (8.4-10.2); Carbon Dioxide 29 mmol/L (22-30); Chloride 103 mmol/L (98-107); Globulin 2.8 g/dL; Glucose 125 mg/dL (74-99); Magnesium 2.2 mg/dL (1.6-2.3); Non-African American GFR(CKD) >90 (>60 ml/min/1.73 sqM); Potassium 4.8 mmol/L (3.5-5.1); Sodium 134 mmol/L (137-145); Total Bilirubin 0.4 mg/dL (0.2-1.3); Total Protein 5.5 g/dL (6.3-8.2)
--- NOTE | 2024-02-02 16:29 | P.PN ---
Progress Note - Text Progress Note Date: 02/02/24 Postoperative day #2 status post right colectomy and small bowel resection ,epidural catheter placed for postoperative analgesia, patient doing well epidural site okay, patient currently on combination of epidural infusion solution of Ropivacaine 0.0625% and fentanyl 2 g per mL the infusion rate started at 12 ml per hour , patient had no motor deficit ,epidural site okay , vital signs stable ,VAS 1 /10 , Assessment and plan= post operative day # 2, patient doing well, pain well-con trolled, continue current management.
--- NOTE | 2024-02-02 17:24 | P.PN ---
Subjective Progress Note Date: 02/02/24 CHIEF COMPLAINT: Diverticulitis HISTORY OF PRESENT ILLNESS: The patient is a 43-year-old male status post exploratory laparotomy with colectomy, colostomy and takedown of a bladder colonic fistula. His entire family is at bedside. No reports of omari blood in his colostomy. Patient denies omari blood in his Lay. He is tolerating liquids. Report hiccups. He is ambulating. ROS: No reports of nausea and vomiting. No bowel movements. No fevers or chills. No new chest pain. No productive sputum PHYSICAL EXAM: VITAL SIGNS: Reviewed CONSTITUTIONAL: Well developed and in no acute distress. EYES: Conjuctivae without sclera icterus. Extraocular movements grossly intact. HEAD, EARS, NOSE, THROAT: Moist buccal mucosa. Head is atraumatic, normocephalic. Hears conversational speech. No nasal drainage. RESPIRATORY: Non-labored respirations and equal bilateral excursions. CARDIOVASCULAR: Palpable 2+ radial pulses. ABDOMEN: No peritonitis. Has icing along abdomen. No stool within ostomy. MUSCULOSKELETAL: No gross deformity of the lower extremities noted. No clubbing. No cyanosis. SKIN: Good skin turgor. Well perfused. NEUROLOGIC: Cranial nerves II through XII grossly intact. No focal or lateralizing signs. PSYCH: Appropriate affect. Alert and oriented to person, place and time. : Urine clear liquid yellow. [place] tinge along tubing. CLINICAL LABS: Reviewed. Hemoglobin down 12.2 at 11.9, anemia. WBC trending down 14.2-13.3, leukocytosis. ASSESSMENT: 1. Complicated diverticulitis with colovesical fistula PLAN: 1. Heparin and blood thinner products were discontinued due to risk for bleeding. 2. Mechanical prophylaxis for DVT advised. 3. Increase simethicone drops for gas. 4. May benefit from medications for hiccups. 5. Monitor CBC, white count and hemoglobin. Objective - Vital Signs Vital signs: Vital Signs Temp 98.5 F 02/02/24 12:11 Pulse 84 02/02/24 12:11 Resp 15 02/02/24 12:11 BP 120/80 02/02/24 12:11 Pulse Ox 97 02/02/24 12:11 FiO2 Intake & Output 02/01/24 02/02/24 02/02/24 18:59 06:59 18:59 Intake Total 1058.6 1517.4 Output Total 1130 410 240 Balance -71.4 1107.4 -240 Intake: Intake, IV Titration 1058.6 1277.4 Amount Cefepime 2 gm In Sodium 200 100 Chloride 0.9% 100 ml @ 25 mls/hr IVPB Q8HR [facility] Rx# :[id number] D5-0.45% NaCl with KCl 600 875 20Meq/l 1,000 ml @ 125 mls/hr IV .Q8H [facility] Rx#: [id number] Ropivacaine 250 mg 58.6 202.4 fentaNYL (PF) 1,250 mcg In Sodium Chloride 0.9% 175 ml @ Per Protocol EPIDURAL .Q0M PRN Rx#: [id number] metroNIDAZOLE-NS PMX 500 200 100 mg In Saline 1 100ml.bag @ 100 mls/hr IVPB Q8HR [facility] Rx#:[id number] Oral 240 Output: Drainage 530 410 240 Right 530 410 240 Urine 600 Other: Voiding Method Indwelling Catheter Indwelling Catheter Indwelling Catheter - Labs CBC & Chem 7: 02/02/24 07:45 02/02/24 07:45 Labs: Abnormal Lab Results - Last 24 Hours (Table) 02/02/24 02/02/24 Range/Units 07:45 07:45 WBC 13.3 H (3.8-10.6) k/uL RBC 3.94 L (4.30-5.90) m/uL Hgb 11.9 L (13.0-17.5) gm/dL Hct 36.5 L (39.0-53.0) % Neutrophils # 10.4 H (1.3-7.7) k/uL Sodium 134 L (137-145) mmol/L Glucose 125 H (74-99) mg/dL Total Protein 5.5 L (6.3-8.2) g/dL Albumin 2.7 L (3.5-5.0) g/dL
[2024-02-02] MEDS: SIMETHICONE 40 MG/0.6 ML DROPS 2,000 MG/30 ML BOTTLE PO SCH (17:38)
[2024-02-02] MEDS: METOCLOPRAMIDE 5 MG/ML 2 ML VIAL IVP SCH (17:38)
--- NOTE | 2024-02-02 20:44 | P.PN ---
Subjective Progress Note Date: 02/02/24 History of present illness; patient is a 43-year-old gentleman with no significant past medical history who presents the ER because of burning pain while urination. Patient states that he was all right 1 month back when he started noticing that he was having increased frequency of urination and burning while peeing. Patient was also noticing increasing odor in his urine. Patient also complained of hematuria. Patient denies any fever or chills at the time. Patient does not have a PCP and did a telemedicine visit at which time he was prescribed Bactrim and completed the course for 1 week. Following that patient stated that for the last 3 days he noticed that once again he was having burning pain while urination. Patient also complaining of hematuria again. There was also complaint of fever and chills at home. There was no complaint of nausea or vomiting. Denies any abdominal pain. There was no complaint of weight loss. Because of these symptoms patient presented the ER Initial lab work done in the ER showed WBC 7.7, hemoglobin 12.9, sodium 132, potassium 3.8, BUN 10, creatinine 0.74, glucose 120, lactate 1.3, AST 26, ALT 26, UA showed large amount of blood, urine WBC greater than 182, large amount leukocyte esterase CT abdominal pelvis done showed haziness around the urinary bladder with bladder wall prominence and gas in the bladder lumen for gas-forming cystitis/hemorrh agic cystitis Patient admitted to internal medicine service 01/27/2024 Patient is admitted and seen in follow-up this morning continues with significant testicular pain and swelling with redness with urology and infectious disease following. Preliminary culture showing gram-negative bacilli and awaiting finalized cultures to determine discharge antibiotics. Patient to continue with icing the scrotal area and elevating as well as current pain regimen. Monitor for any fevers as patient has been continuously having low- grade temps. Will continue current regimen and await finalized cultures. Patient does not currently have a primary care provider as he is new to the area and will provide resources on discharge. 01/28/2024 Patient is seen in follow-up today continuing to have low-grade temps with infectious disease following and preliminary culture showing gram-negative bacilli on urine awaiting finalized cultures to determine discharge antibiotics. Encouraged increased activity as tolerated and up and walking. Continue with as needed antipyretics. EKG was done and patient is sinus tach likely secondary to continued fevers. 01/29/2024 Patient is seen in follow-up today had a few low-grade temps noted and also white count elevated to 21 and patient reported he felt he was having stool in his urine. Urology reevaluated and general surgery consult was placed as there is concern for colo vesicle fistula. Urine culture finalized with Pseudomonas aeruginosa with infectious disease following and has transition to cefepime. Patient is starting GoLytely prep and will be planning for colonoscopy tomorrow with general surgery. at the bedside with questions and concerns that were answered to the best of our ability 01/30/2024 Patient is seen and evaluated in follow-up today undergoing colonoscopy today showing diverticulitis. Patient with no previous history of diverticulitis although mother and father history of and mother requiring surgical intervention. Patient is maintained on antibiotics in the form of cefepime and Flagyl with infectious disease following and white count has trended down currently at 12 and afebrile this morning. Plan is for possible colectomy on 01/31/2024 and patient will be n.p.o. at midnight tonight. 01/31/2024 Patient seen in follow-up scheduled for surgery with general surgery and plan is for possible colectomy and will await official report. Patient afebrile overnight maintained on antibiotics with infectious disease following along with urology and will continue current regimen. Patient is currently n.p.o. and will await surgery recommendations regarding when to resume diet. 02/01/2024 Patient is seen in follow-up status post sigmoid colectomy and repair of bladder fistula with indwelling Lay catheter. Patient is to continue with indwelling Lay catheter for minimum 10 days per surgery. Multiple consultations including infectious disease, pain management, general surgery, urology following. Patient is continued on IV antibiotics and will continue and monitor clinically. Patient started on clears and will slowly advance as tolerated per surgery. Patient continues with epidural pump and having significant pain per nursing staff attempting to achieve better pain management. Anesthesia follo wing making adjustments to the epidural pump. 02/02/2024 Patient is seen in follow-up with general surgery and infectious disease following. White count is trending down and patient remains afebrile maintained on IV antibiotics. Patient hemoglobin is stable although there was some blood noted in the Lay will monitor as this is to be expected given surgery. Patient has been up and ambulating and encouraged increase activity as tolerated including sitting in the chair more frequently. Patient will continue on clear liquids per surgery no reports of gas passing other than gas bloating and pressure and no bowel movement yet Review of systems: Constitutional: No reports of fatigue, no fever today, less anxious Cardiovascular: No reports of chest pain or palpitations Respiratory: No reports of shortness of breath or cough GI: No reports of nausea, vomiting, or diarrhea, not passing gas and no bowel movement as of yet : No reports of dysuria or retention, has some scrotal swelling and discomfort, continues with indwelling Lay catheter per surgery for bladder repair, reports some blood noted earlier this morning in the Lay bag Neurovascular: reports of generalized weakness All medications have been reviewed PHYSICAL EXAMINATION: GENERAL: The patient is alert and oriented x3, appears exhausted. Well developed, well nourished. HEENT: Pupils are round and equally reacting to light. EOMI. No scleral icterus. No conjunctival pallor. Normocephalic, atraumatic. No pharyngeal erythema. No thyromegaly. CARDIOVASCULAR: S1 and S2 present. No murmurs, rubs, or gallops. PULMONARY: Chest is clear to auscultation, no wheezing or crackles. ABDOMEN: Soft, tender, nondistended, normoactive bowel sounds. No palpable organomegaly. MUSCULOSKELETAL: No joint swelling or deformity. EXTREMITIES: No cyanosis, clubbing, or pedal edema. NEUROLOGICAL: Gross neurological examination did not reveal any focal deficits. Diffusely weak SKIN: No rashes. Pale Assessment: Sepsis multifactorial, present on admission likely secondary to diverticulitis with a colovesical fistula causing a urinary tract infection, cultures growing Pseudomonas aeruginosa Acute hemorrhagic cystitis Stool noted in the urine, concerns for possible colovesical fistula, status post colonoscopy revealing diverticulitis and status post sigmoid colectomy as well as urinary bladder repair today 01/31/2024. Strong family history of diverticulitis in mother and father GI prophylaxis DVT prophylaxis Full code Plan: Patient is continued on IV antibiotics with infectious disease following and urine cultures finalized with Pseudomonas aeruginosa. Antibiotics have been transitioned to cefepime and Flagyl and will continue. White count trending down and patient is afebrile. Urology following and is concerned for possible colovesical fistula as patient was noting to have stool in the urine. Will need outpatient follow-up with urology General surgery following and patient is status post colonoscopy with diverticulitis noted and underwent sigmoid colectomy with urinary bladder fissure repair on 01/31/2024. Continue pain management per anesthesia and general surgery. Patient does have indwelling Lay catheter And is to continue per surgery without removing for minimum 10 days. Only remove Lay catheter if cleared by general surgery Continue to ice the scrotal area and elevate as tolerated as there continues to be significant redness, swelling, and discomfort Follow-up on repeat labs and replace electrolytes per protocol. Continue monitoring for any further fevers and use antipyretics as needed Encouraged increase activity as tolerated Overall prognosis is guarded The impression and plan of care has been dictated by Jessica Rivera, Nurse Practitioner as directed. Dr. Virgen MD I have performed a history and examination and MDM of this patient, discussed the same with the dictator, and agree with the dictator's assessment and plan as written ,documented as a scribe. Based on total visit time, I have performed more than 50% of the visit. Objective - Vital Signs Vital signs: Vital Signs Temp 98.3 F 02/02/24 07:29 Pulse 91 02/02/24 07:29 Resp 15 02/02/24 07:29 BP 122/77 02/02/24 07:29 Pulse Ox 97 02/02/24 07:29 FiO2 Intake & Output 02/01/24 02/02/24 02/02/24 18:59 06:59 18:59 Intake Total 1058.6 1517.4 Output Total 1130 410 80 Balance -71.4 1107.4 -80 Intake: Intake, IV Titration 1058.6 1277.4 Amount Cefepime 2 gm In Sodium 200 100 Chloride 0.9% 100 ml @ 25 mls/hr IVPB Q8HR [facility] Rx# :[id number] D5-0.45% NaCl with KCl 600 875 20Meq/l 1,000 ml @ 125 mls/hr IV .Q8H [facility] Rx#: [id number] Ropivacaine 250 mg 58.6 202.4 fentaNYL (PF) 1,250 mcg In Sodium Chloride 0.9% 175 ml @ Per Protocol EPIDURAL .Q0M PRN Rx#: [id number] metroNIDAZOLE-NS PMX 500 200 100 mg In Saline 1 100ml.bag @ 100 mls/hr IVPB Q8HR [facility] Rx#:[id number] Oral 240 Output: Drainage 530 410 80 Right 530 410 80 Urine 600 Other: Voiding Method Indwelling Catheter Indwelling Catheter - Labs CBC & Chem 7: 02/02/24 07:45 02/02/24 07:45 Labs: Abnormal Lab Results - Last 24 Hours (Table) 02/01/24 02/01/24 Range/Units 09:30 09:30 WBC 14.2 H (3.8-10.6) k/uL RBC 4.14 L (4.30-5.90) m/uL Hgb 12.2 L (13.0-17.5) gm/dL Hct 38.8 L (39.0-53.0) % Neutrophils # 11.8 H (1.3-7.7) k/uL Sodium 134 L (137-145) mmol/L Glucose 145 H (74-99) mg/dL Alkaline Phosphatase 154 H (38-126) U/L Total Protein 5.8 L (6.3-8.2) g/dL Albumin 3.0 L (3.5-5.0) g/dL
--- NOTE | 2024-02-03 08:17 | P.PN ---
Subjective Progress Note Date: 02/02/24 Principal diagnosis: Reason for follow-up is sepsis/UTI Patient is a 43-year-old male with no significant past medical history presenting to the hospital for evaluation of lower abdominal pain and blood in the urine, patient mention he did have symptoms going on with the burning of urination that has been almost for about a month with acute worsening over a day or 2 before presented to the hospital abdominal pain and hematuria patient was noted to be septic secondary to urinary source, with subsequent diagnosis of complicated diverticulitis with a colovesical fistula for which patient is status post laparotomy sigmoid colectomy small bowel resection and repair of the bladder fistula procedure completed on 01/31/2024. On today's evaluation that is 02/02/2024, Patient is afebrile patient is currently on room air shortness of breath has slightly improved no chest pain abdominal pain is slightly decreased intensity patient is having some hiccups but no vomiting. Patient white count is slightly down to 13.3 creatinine 0.71 Objective - Vital Signs Vital signs: Vital Signs Temp 98.3 F 02/02/24 07:29 Pulse 91 02/02/24 07:29 Resp 15 02/02/24 07:29 BP 122/77 02/02/24 07:29 Pulse Ox 97 02/02/24 07:29 FiO2 Intake & Output 02/01/24 02/02/24 02/02/24 18:59 06:59 18:59 Intake Total 1058.6 1517.4 Output Total 1130 410 80 Balance -71.4 1107.4 -80 Intake: Intake, IV Titration 1058.6 1277.4 Amount Cefepime 2 gm In Sodium 200 100 Chloride 0.9% 100 ml @ 25 mls/hr IVPB Q8HR [facility] Rx# :[id number] D5-0.45% NaCl with KCl 600 875 20Meq/l 1,000 ml @ 125 mls/hr IV .Q8H [facility] Rx#: [id number] Ropivacaine 250 mg 58.6 202.4 fentaNYL (PF) 1,250 mcg In Sodium Chloride 0.9% 175 ml @ Per Protocol EPIDURAL .Q0M PRN Rx#: [id number] metroNIDAZOLE-NS PMX 500 200 100 mg In Saline 1 100ml.bag @ 100 mls/hr IVPB Q8HR [facility] Rx#:[id number] Oral 240 Output: Drainage 530 410 80 Right 530 410 80 Urine 600 Other: Voiding Method Indwelling Catheter Indwelling Catheter - Exam GENERAL DESCRIPTION: Middle-age male lying in bed in no distress RESPIRATORY SYSTEM: Unlabored breathing , decreased breath sounds at bases HEART: S1 S2 regular rate and rhythm , ABDOMEN: Soft , mild lower abdominal tenderness EXTREMITIES: No edema feet - Labs CBC & Chem 7: 02/02/24 07:45 02/02/24 07:45 Labs: Abnormal Lab Results - Last 24 Hours (Table) 02/01/24 02/01/24 02/02/24 Range/Units 09:30 09:30 07:45 WBC 14.2 H 13.3 H (3.8-10.6) k/uL RBC 4.14 L 3.94 L (4.30-5.90) m/uL Hgb 12.2 L 11.9 L (13.0-17.5) gm/dL Hct 38.8 L 36.5 L (39.0-53.0) % Neutrophils # 11.8 H 10.4 H (1.3-7.7) k/uL Sodium 134 L (137-145) mmol/L Glucose 145 H (74-99) mg/dL Alkaline Phosphatase 154 H (38-126) U/L Total Protein 5.8 L (6.3-8.2) g/dL Albumin 3.0 L (3.5-5.0) g/dL 02/02/24 Range/Units 07:45 WBC (3.8-10.6) k/uL RBC (4.30-5.90) m/uL Hgb (13.0-17.5) gm/dL Hct (39.0-53.0) % Neutrophils # (1.3-7.7) k/uL Sodium 134 L (137-145) mmol/L Glucose 125 H (74-99) mg/dL Alkaline Phosphatase (38-126) U/L Total Protein 5.5 L (6.3-8.2) g/dL Albumin 2.7 L (3.5-5.0) g/dL Assessment and Plan (1) Sepsis Current Visit: Yes Status: Acute Code(s): A41.9 - SEPSIS, UNSPECIFIED ORGANISM SNOMED Code(s): 16772991 (2) Emphysematous cystitis Current Visit: Yes Status: Acute Code(s): N30.80 - OTHER CYSTITIS WITHOUT HEMATURIA SNOMED Code(s): 77329401 (3) Pseudomonas aeruginosa infection Current Visit: Yes Status: Acute Code(s): A49.8 - OTHER BACTERIAL INFECTIONS OF UNSPECIFIED SITE SNOMED Code(s): 84550445 Plan: 1patient presented to hospital with sepsis in this patient who did have fever tachycardia elevated white count meeting criteria for SIRS source is emphysematous cystitis and likely from enteric gram-negative pathogen. 2patient during hospital stay reported stool through his ureter concerning for colovesical fistula General Surgery has done colonoscopy followed by laparotomy sigmoid colectomy small bowel resection and repair of the bladder fistula 3-urine has been finalized with Pseudomonas aeruginosa 4patient is afebrile, the patient white count is trending down, patient will be treated with cefepime and Flagyl at the bedside multiple question answered encouraged to use incentive spirometry Dictation was produced using [email or web address] dictation software. please excuse any grammatical, word or spelling errors.
[2024-02-03 08:46] LABS: ALT 30 U/L (10-49); AST 38 U/L (14-35); Albumin 2.6 g/dL (3.8-4.9); Albumin/Globulin Ratio 1.08 Ratio (1.60-3.17); Alkaline Phosphatase 89 U/L (41-126); BUN/Creat Ratio 22.33 Ratio (12.00-20.00); Blood Urea Nitrogen 13.4 mg/dL (9.0-27.0); Calcium 7.9 mg/dL (8.7-10.3); Carbon Dioxide 25.4 mmol/L (21.6-31.8); Chloride 102 mmol/L (96-109); Globulin 2.4 g/dL (1.6-3.3); Glucose 127 mg/dL (70-110); Potassium 4.6 mmol/L (3.5-5.5); Sodium 134 mmol/L (135-145); Total Bilirubin 0.3 mg/dL (0.3-1.2)
[2024-02-03 09:12] LABS: HCT 32.9 % (39.6-50.0); HGB 10.4 g/dL (13.0-17.0); MCH 29.6 pg (27.0-32.0); MCHC 31.6 g/dL (32.0-37.0); MCV 93.7 FL (80.0-97.0); Mean Platelet Volume 9.8 FL (9.5-12.2); NRBC Per 100 WBC 0 X 10*3/uL (0.00-0.01); Platelet Count 332 X 10*3/uL (140-440); RBC 3.51 X 10*6/uL (4.40-5.60); RDW 14.3 % (11.5-14.5); WBC 12.55 X 10*3/uL (4.50-10.00)
[2024-02-03 10:01] LABS: Basophils # (A) 0.08 X 10*3/uL (0.00-0.10); Basophils % (A) 0.6 %; Eosinophils # (A) 0.59 X 10*3/uL (0.04-0.35); Eosinophils % (A) 4.7 %; Lymphocytes # (A) 1.78 X 10*3/uL (0.90-5.00); Lymphocytes % (A) 14.2 %; Monocytes # (A) 0.74 X 10*3/uL (0.20-1.00); Monocytes % (A) 5.9 %; Neutrophils # (A) 8.86 X 10*3/uL (1.80-7.70); Neutrophils % (A) 70.6 %
--- NOTE | 2024-02-03 11:09 | P.PN ---
Subjective Progress Note Date: 02/03/24 SURGICAL PROGRESS NOTE CHIEF COMPLAINT: Colovesical fistula HISTORY OF PRESENT ILLNESS: Patient is postop day #3 status post exploratory laparotomy, sigmoid colectomy, small bowel resection and repair of bladder fistula. Patient is sitting up at bedside chair. His pain is controlled. He does have epidural in place. Hiccups have improved. No stool output through her ostomy. Denies any nausea or vomiting. Afebrile. WBC is down from 13-12.5 Hgb 10.4 JUSTIN drain 270 mL serosanguineous output PHYSICAL EXAM: VITAL SIGNS: Reviewed. GENERAL: Well-developed in no acute distress. ABDOMEN: Distended. Colostomy on the left stoma is pink. Serosanguineous drainage. Midline incision clean dry and intact. On the bandage there is some serous drainage. JUSTIN drain with serosanguineous output. NEUROLOGIC: Alert and oriented. Cranial nerves II through XII grossly intact. ASSESSMENT: 1. Colovesical fistula PLAN: -Discontinue epidural -IV Dilaudid every 3 hours as needed added for pain control -Continue clear liquid diet -Patient is status post bladder repair. DO NOT REMOVE GARDNER CATHETER. Gardner catheter stays in place for 10 days -Continue antibiotics -Continue IV fluid -GI prophylaxis Protonix and DVT prophylaxis subcu heparin Physician Termite Control Service Representative note has been reviewed by physician. Signing provider agrees with the documented findings, assessment, and plan of care. Objective - Vital Signs Vital signs: Vital Signs Temp 98 F 02/03/24 07:15 Pulse 72 02/03/24 07:15 Resp 16 02/03/24 07:15 BP 121/77 02/03/24 07:15 Pulse Ox 97 02/03/24 07:15 FiO2 Intake & Output 02/02/24 02/03/24 02/03/24 18:59 06:59 18:59 Intake Total 1022.6 Output Total 880 670 Balance -880 352.6 Intake: Intake, IV Titration 422.6 Amount Cefepime 2 gm In Sodium 100 Chloride 0.9% 100 ml @ 25 mls/hr IVPB Q8HR [facility] Rx# :[id number] Ropivacaine 250 mg 222.6 fentaNYL (PF) 1,250 mcg In Sodium Chloride 0.9% 175 ml @ Per Protocol EPIDURAL .Q0M PRN Rx#: [id number] metroNIDAZOLE-NS PMX 500 100 mg In Saline 1 100ml.bag @ 100 mls/hr IVPB Q8HR [facility] Rx#:[id number] Oral 600 Output: Drainage 280 270 Right 280 270 Urine 600 400 Other: Voiding Method Indwelling Catheter Indwelling Catheter - Labs CBC & Chem 7: 02/03/24 05:32 02/03/24 05:32 Labs: Abnormal Lab Results - Last 24 Hours (Table) 02/03/24 02/03/24 Range/Units 05:32 05:32 WBC 12.55 H (4.50-10.00) X 10*3/uL RBC 3.51 L (4.40-5.60) X 10*6/uL Hgb 10.4 L (13.0-17.0) g/dL Hct 32.9 L (39.6-50.0) % MCHC 31.6 L (32.0-37.0) g/dL Immature Gran # 0.50 H (0.00-0.04) X 10*3/uL Neutrophils # 8.86 H (1.80-7.70) X 10*3/uL Eosinophils # 0.59 H (0.04-0.35) X 10*3/uL Sodium 134 L (135-145) mmol/L BUN/Creatinine Ratio 22.33 H (12.00-20.00) Ratio Glucose 127 H (70-110) mg/dL Calcium 7.9 L (8.7-10.3) mg/dL AST 38 H (14-35) U/L Total Protein 5.0 L (6.2-8.2) g/dL Albumin 2.6 L (3.8-4.9) g/dL Albumin/Globulin Ratio 1.08 L (1.60-3.17) Ratio
--- NOTE | 2024-02-03 11:13 | P.PN ---
Progress Note - Text Progress Note Date: 02/03/24 Postoperative day #3 status post right colectomy and small bowel resection ,epidural catheter placed for postoperative analgesia, patient doing well epidural site okay, patient currently on combination of epidural infusion solution of Ropivacaine 0.0625% and fentanyl 2 g per mL the infusion rate started at 12 ml per hour , patient had no motor deficit ,epidural site okay , vital signs stable ,VAS 1 /10 , Assessment and plan= post operative day # 3, patient doing well, pain well-con trolled. Continue epidural catheter today afternoon or tomorrow morning
[2024-02-03] MEDS: HYDROmorphone 1 MG/ML 1 ML SYRINGE IVP PRN (15:49)
[2024-02-03] MEDS: KETOROLAC 15 MG/ML 1 ML VIAL IVP SCH (21:02)
--- NOTE | 2024-02-04 06:23 | P.PN ---
Subjective Progress Note Date: 02/03/24 History of present illness; patient is a 43-year-old gentleman with no significant past medical history who presents the ER because of burning pain while urination. Patient states that he was all right 1 month back when he started noticing that he was having increased frequency of urination and burning while peeing. Patient was also noticing increasing odor in his urine. Patient also complained of hematuria. Patient denies any fever or chills at the time. Patient does not have a PCP and did a telemedicine visit at which time he was prescribed Bactrim and completed the course for 1 week. Following that patient stated that for the last 3 days he noticed that once again he was having burning pain while urination. Patient also complaining of hematuria again. There was also complaint of fever and chills at home. There was no complaint of nausea or vomiting. Denies any abdominal pain. There was no complaint of weight loss. Because of these symptoms patient presented the ER Initial lab work done in the ER showed WBC 7.7, hemoglobin 12.9, sodium 132, potassium 3.8, BUN 10, creatinine 0.74, glucose 120, lactate 1.3, AST 26, ALT 26, UA showed large amount of blood, urine WBC greater than 182, large amount leukocyte esterase CT abdominal pelvis done showed haziness around the urinary bladder with bladder wall prominence and gas in the bladder lumen for gas-forming cystitis/hemorrh agic cystitis Patient admitted to internal medicine service 01/27/2024 Patient is admitted and seen in follow-up this morning continues with significant testicular pain and swelling with redness with urology and infectious disease following. Preliminary culture showing gram-negative bacilli and awaiting finalized cultures to determine discharge antibiotics. Patient to continue with icing the scrotal area and elevating as well as current pain regimen. Monitor for any fevers as patient has been continuously having low- grade temps. Will continue current regimen and await finalized cultures. Patient does not currently have a primary care provider as he is new to the area and will provide resources on discharge. 01/28/2024 Patient is seen in follow-up today continuing to have low-grade temps with infectious disease following and preliminary culture showing gram-negative bacilli on urine awaiting finalized cultures to determine discharge antibiotics. Encouraged increased activity as tolerated and up and walking. Continue with as needed antipyretics. EKG was done and patient is sinus tach likely secondary to continued fevers. 01/29/2024 Patient is seen in follow-up today had a few low-grade temps noted and also white count elevated to 21 and patient reported he felt he was having stool in his urine. Urology reevaluated and general surgery consult was placed as there is concern for colo vesicle fistula. Urine culture finalized with Pseudomonas aeruginosa with infectious disease following and has transition to cefepime. Patient is starting GoLytely prep and will be planning for colonoscopy tomorrow with general surgery. at the bedside with questions and concerns that were answered to the best of our ability 01/30/2024 Patient is seen and evaluated in follow-up today undergoing colonoscopy today showing diverticulitis. Patient with no previous history of diverticulitis although mother and father history of and mother requiring surgical intervention. Patient is maintained on antibiotics in the form of cefepime and Flagyl with infectious disease following and white count has trended down currently at 12 and afebrile this morning. Plan is for possible colectomy on 01/31/2024 and patient will be n.p.o. at midnight tonight. 01/31/2024 Patient seen in follow-up scheduled for surgery with general surgery and plan is for possible colectomy and will await official report. Patient afebrile overnight maintained on antibiotics with infectious disease following along with urology and will continue current regimen. Patient is currently n.p.o. and will await surgery recommendations regarding when to resume diet. 02/01/2024 Patient is seen in follow-up status post sigmoid colectomy and repair of bladder fistula with indwelling Lay catheter. Patient is to continue with indwelling Lay catheter for minimum 10 days per surgery. Multiple consultations including infectious disease, pain management, general surgery, urology following. Patient is continued on IV antibiotics and will continue and monitor clinically. Patient started on clears and will slowly advance as tolerated per surgery. Patient continues with epidural pump and having significant pain per nursing staff attempting to achieve better pain management. Anesthesia follo wing making adjustments to the epidural pump. 02/02/2024 Patient is seen in follow-up with general surgery and infectious disease following. White count is trending down and patient remains afebrile maintained on IV antibiotics. Patient hemoglobin is stable although there was some blood noted in the Lay will monitor as this is to be expected given surgery. Patient has been up and ambulating and encouraged increase activity as tolerated including sitting in the chair more frequently. Patient will continue on clear liquids per surgery no reports of gas passing other than gas bloating and pressure and no bowel movement yet 02/03/2024 Patient is seen in follow-up this morning currently sitting up in the chair and reports has been up and walking. Continuing to use incentive spirometer with infectious disease and general surgery and urology following. Patient continues with indwelling Lay catheter and will continue for at least 10 days. Urine is yellow and producing adequate urine. Patient is maintained on clear liquids and tolerating with continued abdominal discomfort. Ostomy nurse for education later today. No stool or gas from the ostomy as of yet. White count is nelia nding down and patient remains afebrile. Patient will continue on antibiotics with infectious disease following. Review of systems: Constitutional: No reports of fatigue, no fever today, less anxious Cardiovascular: No reports of chest pain or palpitations Respiratory: No reports of shortness of breath or cough GI: No reports of nausea, vomiting, or diarrhea, not passing gas and no bowel movement as of yet in the ostomy : No reports of dysuria or retention, has some scrotal swelling and dis comfort, continues with indwelling Lay catheter per surgery for bladder repair, reports some blood noted earlier this morning in the Lay bag Neurovascular: reports of generalized weakness All medications have been reviewed PHYSICAL EXAMINATION: GENERAL: The patient is alert and oriented x3, appears more awake today and rested. Well developed, well nourished. HEENT: Pupils are round and equally reacting to light. EOMI. No scleral icterus. No conjunctival pallor. Normocephalic, atraumatic. No pharyngeal erythema. No thyromegaly. CARDIOVASCULAR: S1 and S2 present. No murmurs, rubs, or gallops. PULMONARY: Diminished breath sounds bilaterally otherwise chest is clear to auscultation, no wheezing or crackles. ABDOMEN: Soft, tender, nondistended, normoactive bowel sounds. No palpable organomegaly. No stool or gas noted in the ostomy MUSCULOSKELETAL: No joint swelling or deformity. EXTREMITIES: No cyanosis, clubbing, or pedal edema. NEUROLOGICAL: Gross neurological examination did not reveal any focal deficits. Diffusely weak SKIN: No rashes. Pale Assessment: Sepsis multifactorial, present on admission likely secondary to diverticulitis with a colovesical fistula causing a urinary tract infection, cultures growing Pseudomonas aeruginosa Acute hemorrhagic cystitis Stool noted in the urine, concerns for possible colovesical fistula, status post colonoscopy revealing diverticulitis and status post sigmoid colectomy as well as urinary bladder repair today 01/31/2024. Strong family history of diverticulitis in mother and father GI prophylaxis DVT prophylaxis Full code Plan: Patient is continued on IV antibiotics with infectious disease following and urine cultures finalized with Pseudomonas aeruginosa. Antibiotics have been transitioned to cefepime and Flagyl and will continue. White count trending down and patient is afebrile. Urology following and will need outpatient follow-up General surgery following and patient is status post colonoscopy with diver ticulitis noted and underwent sigmoid colectomy, ostomy with urinary bladder fissure repair on 01/31/2024. Continue pain management per anesthesia and general surgery. Epidural is being removed today and patient will be continued on IV and oral pain medication regimen Patient does have indwelling Lay catheter And is to continue per surgery without removing for minimum 10 days. Only remove Lay catheter if cleared by general surgery Continue to ice the scrotal area and elevate as tolerated as there continues to be significant redness, swelling, and discomfort Follow-up on repeat labs and replace electrolytes per protocol. Continue monitoring for any further fevers and use antipyretics as needed Encouraged increase activity as tolerated Overall prognosis is guarded The impression and plan of care has been dictated by Nurse Aleks Pra ctitioner as directed. Dr. Peter MD I have performed a history and examination and MDM of this patient, discussed the same with the dictator, and agree with the dictator's assessment and plan as written ,documented as a scribe. Based on total visit time, I have performed more than 50% of the visit. Objective - Vital Signs Vital signs: Vital Signs Temp 98.7 F 02/04/24 02:17 Pulse 83 02/04/24 02:17 Resp 12 02/04/24 02:17 BP 144/89 02/04/24 02:17 Pulse Ox 99 02/04/24 02:17 FiO2 Intake & Output 02/03/24 02/03/24 02/04/24 06:59 18:59 06:59 Intake Total 1022.6 1900 1940 Output Total 670 1000 1400 Balance 352.6 900 540 Weight 65.771 kg Intake: Intake, IV Titration 422.6 1900 1700 Amount Cefepime 2 gm In Sodium 100 200 100 Chloride 0.9% 100 ml @ 25 mls/hr IVPB Q8HR [facility] Rx# :[id number] D5-0.45% NaCl with KCl 1500 1500 20Meq/l 1,000 ml @ 125 mls/hr IV .Q8H [facility] Rx#: [id number] Ropivacaine 250 mg 222.6 fentaNYL (PF) 1,250 mcg In Sodium Chloride 0.9% 175 ml @ Per Protocol EPIDURAL .Q0M PRN Rx#: [id number] metroNIDAZOLE-NS PMX 500 100 200 100 mg In Saline 1 100ml.bag @ 100 mls/hr IVPB Q8HR [facility] Rx#:[id number] Oral 600 240 Output: Drainage 270 200 300 Right 270 200 300 Urine 073 [id number] Emesis 50 Other: Voiding Method Indwelling Catheter Indwelling Catheter Indwelling Catheter - Labs CBC & Chem 7: 02/03/24 05:32 02/03/24 05:32 Labs: Abnormal Lab Results - Last 24 Hours (Table) 02/03/24 02/03/24 Range/Units 05:32 05:32 WBC 12.55 H (4.50-10.00) X 10*3/uL RBC 3.51 L (4.40-5.60) X 10*6/uL Hgb 10.4 L (13.0-17.0) g/dL Hct 32.9 L (39.6-50.0) % MCHC 31.6 L (32.0-37.0) g/dL Immature Gran # 0.50 H (0.00-0.04) X 10*3/uL Neutrophils # 8.86 H (1.80-7.70) X 10*3/uL Eosinophils # 0.59 H (0.04-0.35) X 10*3/uL Sodium 134 L (135-145) mmol/L BUN/Creatinine Ratio 22.33 H (12.00-20.00) Ratio Glucose 127 H (70-110) mg/dL Calcium 7.9 L (8.7-10.3) mg/dL AST 38 H (14-35) U/L Total Protein 5.0 L (6.2-8.2) g/dL Albumin 2.6 L (3.8-4.9) g/dL Albumin/Globulin Ratio 1.08 L (1.60-3.17) Ratio
[2024-02-04 08:41] LABS: Basophils # (A) 0.07 X 10*3/uL (0.00-0.10); Basophils % (A) 0.5 %; Eosinophils % (A) 3.1 %; HCT 33.3 % (39.6-50.0); HGB 10.7 g/dL (13.0-17.0); Lymphocytes # (A) 1.44 X 10*3/uL (0.90-5.00); Lymphocytes % (A) 11.1 %; MCH 29.6 pg (27.0-32.0); MCHC 32.1 g/dL (32.0-37.0); Mean Platelet Volume 9.9 FL (9.5-12.2); Monocytes # (A) 0.67 X 10*3/uL (0.20-1.00); Monocytes % (A) 5.2 %; NRBC Per 100 WBC 0 X 10*3/uL (0.00-0.01); Neutrophils # (A) 9.92 X 10*3/uL (1.80-7.70); Neutrophils % (A) 76.6 %; Platelet Count 312 X 10*3/uL (140-440); RBC 3.62 X 10*6/uL (4.40-5.60); RDW 13.6 % (11.5-14.5); WBC 12.95 X 10*3/uL (4.50-10.00)
[2024-02-04 09:28] LABS: Blood Urea Nitrogen 8.2 mg/dL (9.0-27.0); Carbon Dioxide 25.6 mmol/L (21.6-31.8); Chloride 101 mmol/L (96-109); Glucose 128 mg/dL (70-110); Potassium 4.5 mmol/L (3.5-5.5); Sodium 131 mmol/L (135-145)
--- NOTE | 2024-02-04 14:35 | P.PN ---
Subjective Progress Note Date: 02/04/24 Principal diagnosis: Reason for follow-up is sepsis/UTI Patient is a 43-year-old male with no significant past medical history presenting to the hospital for evaluation of lower abdominal pain and blood in the urine, patient mention he did have symptoms going on with the burning of urination that has been almost for about a month with acute worsening over a day or 2 before presented to the hospital abdominal pain and hematuria patient was noted to be septic secondary to urinary source, with subsequent diagnosis of complicated diverticulitis with a colovesical fistula for which patient is status post laparotomy sigmoid colectomy small bowel resection and repair of the bladder fistula procedure completed on 01/31/2024. On today's evaluation that is 02/04/2024, the patient continues to be afebrile he is breathing comfortably currently on room air patient denies having any chest pain shortness of breath patient still complaining of nausea but no vomiting has been passing gas but no output in colostomy patient white count is 12.95 creatinine 0.5 Objective - Vital Signs Vital signs: Vital Signs Temp 98.2 F 02/04/24 07:50 Pulse 71 02/04/24 07:50 Resp 18 02/04/24 07:50 BP 134/87 02/04/24 07:50 Pulse Ox 97 02/04/24 07:50 FiO2 Intake & Output 02/03/24 02/04/24 02/04/24 18:59 06:59 18:59 Intake Total 1900 1940 Output Total 1000 1965 80 Balance 900 -25 -80 Weight 65.771 kg Intake: Intake, IV Titration 1900 1700 Amount Cefepime 2 gm In Sodium 200 100 Chloride 0.9% 100 ml @ 25 mls/hr IVPB Q8HR [facility] Rx# :[id number] D5-0.45% NaCl with KCl 1500 1500 20Meq/l 1,000 ml @ 125 mls/hr IV .Q8H [facility] Rx#: [id number] metroNIDAZOLE-NS PMX 500 200 100 mg In Saline 1 100ml.bag @ 100 mls/hr IVPB Q8HR [facility] Rx#:[id number] Oral 240 Output: Drainage 200 390 80 Right 200 390 80 Urine 750 1575 Emesis 50 Other: Voiding Method Indwelling Catheter Indwelling Catheter Indwelling Catheter - Exam GENERAL DESCRIPTION: Middle-age male lying in bed in no distress RESPIRATORY SYSTEM: Unlabored breathing , decreased breath sounds at bases HEART: S1 S2 regular rate and rhythm , ABDOMEN: Soft , mild lower abdominal tenderness EXTREMITIES: No edema feet - Labs CBC & Chem 7: 02/04/24 04:34 02/04/24 04:34 Labs: Abnormal Lab Results - Last 24 Hours (Table) 02/04/24 02/04/24 Range/Units 04:34 04:34 WBC 12.95 H (4.50-10.00) X 10*3/uL RBC 3.62 L (4.40-5.60) X 10*6/uL Hgb 10.7 L (13.0-17.0) g/dL Hct 33.3 L (39.6-50.0) % Immature Gran # 0.45 H (0.00-0.04) X 10*3/uL Neutrophils # 9.92 H (1.80-7.70) X 10*3/uL Eosinophils # 0.40 H (0.04-0.35) X 10*3/uL Sodium 131 L (135-145) mmol/L BUN 8.2 L (9.0-27.0) mg/dL Creatinine 0.5 L (0.6-1.5) mg/dL Glucose 128 H (70-110) mg/dL Calcium 8.0 L (8.7-10.3) mg/dL Assessment and Plan (1) Sepsis Current Visit: Yes Status: Acute Code(s): A41.9 - SEPSIS, UNSPECIFIED ORGANISM SNOMED Code(s): 85286438 (2) Emphysematous cystitis Current Visit: Yes Status: Acute Code(s): N30.80 - OTHER CYSTITIS WITHOUT HEMATURIA SNOMED Code(s): 03058556 (3) Pseudomonas aeruginosa infection Current Visit: Yes Status: Acute Code(s): A49.8 - OTHER BACTERIAL INFECTIONS OF UNSPECIFIED SITE SNOMED Code(s): 15478160 Plan: 1patient presented to hospital with sepsis in this patient who did have fever tachycardia elevated white count meeting criteria for SIRS source is emphysematous cystitis and likely from enteric gram-negative pathogen. 2patient during hospital stay reported stool through his ureter concerning for colovesical fistula General Surgery has done colonoscopy followed by laparotomy sigmoid colectomy small bowel resection and repair of the bladder fistula 3-urine has been finalized with Pseudomonas aeruginosa 4patient is afebrile, the patient white count is slightly up today and will monitor closely 5- patient will be continued on cefepime and Flagyl and continue supportive care Dictation was produced using [employer] dictation software. please excuse any grammatical, word or spelling errors. Time with Patient: Less than 30
--- NOTE | 2024-02-04 14:35 | P.PN ---
Subjective Progress Note Date: 02/03/24 Principal diagnosis: Reason for follow-up is sepsis/UTI Patient is a 43-year-old male with no significant past medical history presenting to the hospital for evaluation of lower abdominal pain and blood in the urine, patient mention he did have symptoms going on with the burning of urination that has been almost for about a month with acute worsening over a day or 2 before presented to the hospital abdominal pain and hematuria patient was noted to be septic secondary to urinary source, with subsequent diagnosis of complicated diverticulitis with a colovesical fistula for which patient is status post laparotomy sigmoid colectomy small bowel resection and repair of the bladder fistula procedure completed on 01/31/2024. On today's evaluation that is 02/03/2024, patient has been afebrile, patient is breathing comfortably and is currently on room air, patient denies having any significant cough no chest pain, patient did have some nausea but no vomiting abdominal pain is currently controlled. Patient white count is down to 12.55 creatinine 0.6 Objective - Vital Signs Vital signs: Vital Signs Temp 98 F 02/03/24 07:15 Pulse 72 02/03/24 07:15 Resp 16 02/03/24 07:15 BP 121/77 02/03/24 07:15 Pulse Ox 97 02/03/24 07:15 FiO2 Intake & Output 02/02/24 02/03/24 02/03/24 18:59 06:59 18:59 Intake Total 1022.6 Output Total 880 670 40 Balance -880 352.6 -40 Intake: Intake, IV Titration 422.6 Amount Cefepime 2 gm In Sodium 100 Chloride 0.9% 100 ml @ 25 mls/hr IVPB Q8HR [facility] Rx# :[id number] Ropivacaine 250 mg 222.6 fentaNYL (PF) 1,250 mcg In Sodium Chloride 0.9% 175 ml @ Per Protocol EPIDURAL .Q0M PRN Rx#: [id number] metroNIDAZOLE-NS PMX 500 100 mg In Saline 1 100ml.bag @ 100 mls/hr IVPB Q8HR [facility] Rx#:[id number] Oral 600 Output: Drainage 280 270 40 Right 280 270 40 Urine 600 400 Other: Voiding Method Indwelling Catheter Indwelling Catheter Indwelling Catheter - Exam GENERAL DESCRIPTION: Middle-age male lying in bed in no distress RESPIRATORY SYSTEM: Unlabored breathing , decreased breath sounds at bases HEART: S1 S2 regular rate and rhythm , ABDOMEN: Soft , mild lower abdominal tenderness EXTREMITIES: No edema feet - Labs CBC & Chem 7: 02/04/24 04:34 02/04/24 04:34 Labs: Abnormal Lab Results - Last 24 Hours (Table) 02/03/24 02/03/24 Range/Units 05:32 05:32 WBC 12.55 H (4.50-10.00) X 10*3/uL RBC 3.51 L (4.40-5.60) X 10*6/uL Hgb 10.4 L (13.0-17.0) g/dL Hct 32.9 L (39.6-50.0) % MCHC 31.6 L (32.0-37.0) g/dL Immature Gran # 0.50 H (0.00-0.04) X 10*3/uL Neutrophils # 8.86 H (1.80-7.70) X 10*3/uL Eosinophils # 0.59 H (0.04-0.35) X 10*3/uL Sodium 134 L (135-145) mmol/L BUN/Creatinine Ratio 22.33 H (12.00-20.00) Ratio Glucose 127 H (70-110) mg/dL Calcium 7.9 L (8.7-10.3) mg/dL AST 38 H (14-35) U/L Total Protein 5.0 L (6.2-8.2) g/dL Albumin 2.6 L (3.8-4.9) g/dL Albumin/Globulin Ratio 1.08 L (1.60-3.17) Ratio Assessment and Plan (1) Sepsis Current Visit: Yes Status: Acute Code(s): A41.9 - SEPSIS, UNSPECIFIED ORGANISM SNOMED Code(s): 03624156 (2) Emphysematous cystitis Current Visit: Yes Status: Acute Code(s): N30.80 - OTHER CYSTITIS WITHOUT HEMATURIA SNOMED Code(s): 55852284 (3) Pseudomonas aeruginosa infection Current Visit: Yes Status: Acute Code(s): A49.8 - OTHER BACTERIAL INFECTIONS OF UNSPECIFIED SITE SNOMED Code(s): 73174830 Plan: 1patient presented to hospital with sepsis in this patient who did have fever tachycardia elevated white count meeting criteria for SIRS source is emphysematous cystitis and likely from enteric gram-negative pathogen. 2patient during hospital stay reported stool through his ureter concerning for colovesical fistula General Surgery has done colonoscopy followed by laparotomy sigmoid colectomy small bowel resection and repair of the bladder fistula 3-urine has been finalized with Pseudomonas aeruginosa 4patient is afebrile, the patient white count is trending down 5- patient will be treated with cefepime and Flagyl and will monitor clinical course closely Dictation was produced using [employer] dictation software. please excuse any grammatical, word or spelling errors. Time with Patient: Less than 30
--- NOTE | 2024-02-04 15:12 | P.PN ---
Subjective Progress Note Date: 02/04/24 Acute events overnight. Patient states that his pain is well-controlled. Denies any nausea or vomiting. No fevers or chills. No shortness of breath or chest pain. No headache or blurry vision. Ambulatory without issue. Objective - Vital Signs Vital signs: Vital Signs Temp 98.3 F 02/04/24 13:36 Pulse 77 02/04/24 13:36 Resp 16 02/04/24 13:36 BP 142/87 02/04/24 13:36 Pulse Ox 99 02/04/24 13:36 FiO2 Intake & Output 02/03/24 02/04/24 02/04/24 18:59 06:59 18:59 Intake Total 1900 1940 Output Total 1000 1965 80 Balance 900 -25 -80 Weight 65.771 kg Intake: Intake, IV Titration 1900 1700 Amount Cefepime 2 gm In Sodium 200 100 Chloride 0.9% 100 ml @ 25 mls/hr IVPB Q8HR [facility] Rx# :[id number] D5-0.45% NaCl with KCl 1500 1500 20Meq/l 1,000 ml @ 125 mls/hr IV .Q8H [facility] Rx#: [id number] metroNIDAZOLE-NS PMX 500 200 100 mg In Saline 1 100ml.bag @ 100 mls/hr IVPB Q8HR [facility] Rx#:[id number] Oral 240 Output: Drainage 200 390 80 Right 200 390 80 Urine 750 1575 Emesis 50 Other: Voiding Method Indwelling Catheter Indwelling Catheter Indwelling Catheter - Exam Gen:Alert and oriented, no apparent distress Pulm: Nonlabored respirations on room air Abd: Soft, minimally tender around midline incision, mildly distended, no guarding/rebound/rigidity Ostomy: [place] and patent, bowel sweat seen. No gas or stool seen in ostomy appliance Lay: Intact producing pale yellow urine output Extrem: No edema seen - Labs CBC & Chem 7: 02/04/24 04:34 02/04/24 04:34 Labs: Abnormal Lab Results - Last 24 Hours (Table) 02/04/24 02/04/24 Range/Units 04:34 04:34 WBC 12.95 H (4.50-10.00) X 10*3/uL RBC 3.62 L (4.40-5.60) X 10*6/uL Hgb 10.7 L (13.0-17.0) g/dL Hct 33.3 L (39.6-50.0) % Immature Gran # 0.45 H (0.00-0.04) X 10*3/uL Neutrophils # 9.92 H (1.80-7.70) X 10*3/uL Eosinophils # 0.40 H (0.04-0.35) X 10*3/uL Sodium 131 L (135-145) mmol/L BUN 8.2 L (9.0-27.0) mg/dL Creatinine 0.5 L (0.6-1.5) mg/dL Glucose 128 H (70-110) mg/dL Calcium 8.0 L (8.7-10.3) mg/dL Assessment and Plan Assessment: 43-year-old male status post sigmoid colectomy, takedown of colovesicular fistula with bladder repair, small bowel resection Plan: -Clear liquid diet -IV fluid hydration -As needed pain and nausea control -Encourage ambulation -Continue Lay catheter due to bladder repair -DVT/GI prophylaxis Paulino Hope M.D. General Surgery
--- NOTE | 2024-02-04 22:19 | PN ---
PROGRESS NOTE DATE OF SERVICE: 02/04/2024 SUBJECTIVE: This is a 43-year-old gentleman admitted with colovesical fistula, had surgery. No chest pain. No palpitations. No fever. The patient is able to ambulate. OBJECTIVE: VITAL SIGNS: Pulse 71, blood pressure 130/80, respirations 18. CHEST: Clear to auscultation. CARDIOVASCULAR: S1, S2. ABDOMEN: Soft, status post surgery. LABORATORY DATA: WBC 12.9. ASSESSMENT: 1. Status post colovesical fistula and surgery with acute diverticulitis, sepsis, present on admission. 2. Hemorrhagic cystitis. 3. Elevated WBC. 4. Pseudomonas aeruginosa urinary tract infection. 5. Multiple medical issues. RECOMMENDATIONS: Recommend to continue current management and continue symptomatic treatment. Otherwise, repeat labs. Incentive spirometry and continue the antibiotics. Closely follow with multiple consultants. Cultures are showing Pseudomonas aeruginosa. Continue to monitor. Further recommendations to follow. MMODL / IJN: [id number] /
[2024-02-05 09:29] LABS: Basophils # (A) 0.11 X 10*3/uL (0.00-0.10); Basophils % (A) 0.6 %; Eosinophils # (A) 0.43 X 10*3/uL (0.04-0.35); Eosinophils % (A) 2.4 %; HCT 35.5 % (39.6-50.0); HGB 10.9 g/dL (13.0-17.0); Lymphocytes # (A) 1.52 X 10*3/uL (0.90-5.00); Lymphocytes % (A) 8.4 %; MCH 28.8 pg (27.0-32.0); MCHC 30.7 g/dL (32.0-37.0); MCV 93.7 FL (80.0-97.0); Monocytes # (A) 0.75 X 10*3/uL (0.20-1.00); Monocytes % (A) 4.1 %; NRBC Per 100 WBC 0 X 10*3/uL (0.00-0.01); Neutrophils # (A) 14.77 X 10*3/uL (1.80-7.70); Neutrophils % (A) 81.6 %; Platelet Count 391 X 10*3/uL (140-440); RBC 3.79 X 10*6/uL (4.40-5.60); RDW 13.8 % (11.5-14.5); WBC 18.11 X 10*3/uL (4.50-10.00)
[2024-02-05 09:36] LABS: ALT 48 U/L (10-49); AST 48 U/L (14-35); Albumin 2.9 g/dL (3.8-4.9); Albumin/Globulin Ratio 1.21 Ratio (1.60-3.17); Alkaline Phosphatase 88 U/L (41-126); BUN/Creat Ratio 11.83 Ratio (12.00-20.00); Blood Urea Nitrogen 7.1 mg/dL (9.0-27.0); Calcium 8.3 mg/dL (8.7-10.3); Carbon Dioxide 25.4 mmol/L (21.6-31.8); Chloride 99 mmol/L (96-109); Globulin 2.4 g/dL (1.6-3.3); Glucose 100 mg/dL (70-110); Potassium 4.4 mmol/L (3.5-5.5); Sodium 132 mmol/L (135-145); Total Bilirubin 0.4 mg/dL (0.3-1.2); Total Protein 5.3 g/dL (6.2-8.2)
--- NOTE | 2024-02-05 11:04 | P.PN ---
Subjective Progress Note Date: 02/05/24 Acute events overnight. Patient states that his pain is well-controlled. Denies any nausea or vomiting. No fevers or chills. No shortness of breath or chest pain. No headache or blurry vision. Ambulatory without issue. Tolerating clear liquid diet without issue. Endorses ostomy output with stool and gas. Objective - Vital Signs Vital signs: Vital Signs Temp 98.7 F 02/05/24 07:38 Pulse 92 02/05/24 07:38 Resp 16 02/05/24 07:38 BP 150/87 02/05/24 07:38 Pulse Ox 98 02/05/24 07:38 FiO2 Intake & Output 02/04/24 02/05/24 02/05/24 18:59 06:59 18:59 Intake Total 600 Output Total 880 690 80 Balance -880 -690 520 Intake: Oral 600 Output: Drainage 130 390 80 Right 130 390 80 Urine 750 300 Other: Voiding Method Indwelling Catheter - Exam Gen:Alert and oriented, no apparent distress Pulm: Nonlabored respirations on room air Abd: Soft, minimally tender around midline incision, mildly distended, no guarding/rebound/rigidity Ostomy: Freeman and patent, bowel sweat seen. gas and stool seen in ostomy appliance Lay: Intact producing pale yellow urine output Extrem: No edema seen - Labs CBC & Chem 7: 02/05/24 02:56 02/05/24 02:56 Labs: Abnormal Lab Results - Last 24 Hours (Table) 02/05/24 02/05/24 Range/Units 02:56 02:56 WBC 18.11 H (4.50-10.00) X 10*3/uL RBC 3.79 L (4.40-5.60) X 10*6/uL Hgb 10.9 L (13.0-17.0) g/dL Hct 35.5 L (39.6-50.0) % MCHC 30.7 L (32.0-37.0) g/dL Immature Gran # 0.53 H (0.00-0.04) X 10*3/uL Neutrophils # 14.77 H (1.80-7.70) X 10*3/uL Eosinophils # 0.43 H (0.04-0.35) X 10*3/uL Basophils # 0.11 H (0.00-0.10) X 10*3/uL Sodium 132 L (135-145) mmol/L BUN 7.1 L (9.0-27.0) mg/dL BUN/Creatinine Ratio 11.83 L (12.00-20.00) Ratio Calcium 8.3 L (8.7-10.3) mg/dL AST 48 H (14-35) U/L Total Protein 5.3 L (6.2-8.2) g/dL Albumin 2.9 L (3.8-4.9) g/dL Albumin/Globulin Ratio 1.21 L (1.60-3.17) Ratio Assessment and Plan Assessment: 43-year-old male status post sigmoid colectomy, 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 General Surgery
[2024-02-05] MEDS: HEPARIN SODIUM,PORCINE 5,000 UNIT/ML 1 ML VIAL SQ SCH (14:03)
--- NOTE | 2024-02-05 14:30 | XR ---
EXAMINATION TYPE: XR chest 1V portable DATE OF EXAM: 02/05/2024 1:59 PM CLINICAL INDICATION:Male, 43 years old with history of atelectasis; [facility] COMPARISON: None TECHNIQUE: XR chest 1V portable Frontal view of the chest. FINDINGS: Lungs/Pleura: There is no evidence of pleural effusion, focal consolidation, or pneumothorax. Pulmonary vascularity: Unremarkable. Heart/mediastinum: Cardiomediastinal silhouette is unremarkable. Musculoskeletal: No acute osseous pathology. Other findings: None IMPRESSION: No acute cardiopulmonary disease/process. [facility], , 02/05/2024 2:28 PM
--- NOTE | 2024-02-05 17:43 | PN ---
PROGRESS NOTE DATE OF SERVICE: 02/05/2024 SUBJECTIVE: This 43-year-old gentleman was admitted with colovesical fistula, had surgery. He is improving. No chest pain. No palpitations. No fever. PHYSICAL EXAMINATION: VITAL SIGNS: Pulse is 92, blood pressure ntd, respirations 16. CHEST: Clear. CARDIOVASCULAR: S1, S2. ABDOMEN: Soft. Status post surgery. LABS: WBC ntd. Urine culture reveals Pseudomonas. ASSESSMENT: 1. Status post colovesical fistula surgery with acute diverticulitis and sepsis present on admission. 2. Hemorrhagic cystitis with Pseudomonas. 3. Elevated WBC. 4. Multiple medical issues. RECOMMENDATIONS: Recommend to continue current management and treatment. Otherwise, at this time, continue the antibiotic with cefepime. Also recommend a chest x-ray to rule out the possibility of an atelectasis. MMODL / IJN: [id number] / MTDD
[2024-02-06 09:27] LABS: Basophils # (A) 0.09 X 10*3/uL (0.00-0.10); Basophils % (A) 0.5 %; Eosinophils # (A) 0.36 X 10*3/uL (0.04-0.35); Eosinophils % (A) 2.2 %; HGB 11.1 g/dL (13.0-17.0); Lymphocytes # (A) 0.98 X 10*3/uL (0.90-5.00); Lymphocytes % (A) 5.9 %; MCH 28.9 pg (27.0-32.0); MCHC 31.7 g/dL (32.0-37.0); MCV 91.1 FL (80.0-97.0); Mean Platelet Volume 9.6 FL (9.5-12.2); Monocytes % (A) 5.4 %; NRBC Per 100 WBC 0 X 10*3/uL (0.00-0.01); Neutrophils # (A) 13.77 X 10*3/uL (1.80-7.70); Neutrophils % (A) 82.7 %; Platelet Count 441 X 10*3/uL (140-440); RBC 3.84 X 10*6/uL (4.40-5.60); RDW 14.1 % (11.5-14.5); WBC 16.65 X 10*3/uL (4.50-10.00)
[2024-02-06 11:01] LABS: ALT 43 U/L (10-49); AST 33 U/L (14-35); Albumin 3.1 g/dL (3.8-4.9); Albumin/Globulin Ratio 1.24 Ratio (1.60-3.17); Alkaline Phosphatase 93 U/L (41-126); Blood Urea Nitrogen 7.2 mg/dL (9.0-27.0); Calcium 8.4 mg/dL (8.7-10.3); Carbon Dioxide 25.7 mmol/L (21.6-31.8); Chloride 97 mmol/L (96-109); Globulin 2.5 g/dL (1.6-3.3); Glucose 96 mg/dL (70-110); Potassium 4.4 mmol/L (3.5-5.5); Sodium 130 mmol/L (135-145); Total Bilirubin 0.5 mg/dL (0.3-1.2); Total Protein 5.6 g/dL (6.2-8.2)
--- NOTE | 2024-02-06 12:37 | P.PN ---
Subjective Progress Note Date: 02/05/24 Principal diagnosis: Reason for follow-up is sepsis/UTI Patient is a 43-year-old male with no significant past medical history presenting to the hospital for evaluation of lower abdominal pain and blood in the urine, patient mention he did have symptoms going on with the burning of urination that has been almost for about a month with acute worsening over a day or 2 before presented to the hospital abdominal pain and hematuria patient was noted to be septic secondary to urinary source, with subsequent diagnosis of complicated diverticulitis with a colovesical fistula for which patient is status post laparotomy sigmoid colectomy small bowel resection and repair of the bladder fistula procedure completed on 01/31/2024. On today's evaluation that is 02/05/2024,the patient denies any fever or any chills, patient is breathing comfortably on room air, the patient denies chest pain shortness of breath and no significant cough, patient abdominal pain is currently controlled no nausea no vomiting minimal output in the colostomy. Patient white count is slightly up to 18.11 today creatinine 0.76 Objective - Vital Signs Vital signs: Vital Signs Temp 98.4 F 02/05/24 13:48 Pulse 90 02/05/24 13:48 Resp 18 02/05/24 13:48 BP 136/88 02/05/24 13:48 Pulse Ox 97 02/05/24 13:48 FiO2 Intake & Output 02/04/24 02/05/24 02/05/24 18:59 06:59 18:59 Intake Total 600 Output Total 880 690 180 Balance -880 -690 420 Intake: Oral 600 Output: Drainage 130 390 80 Right 130 390 80 Urine 750 300 Stool 100 Other: Voiding Method Indwelling Catheter Indwelling Catheter - Exam GENERAL DESCRIPTION: Middle-age male lying in bed in no distress RESPIRATORY SYSTEM: Unlabored breathing , decreased breath sounds at bases HEART: S1 S2 regular rate and rhythm , ABDOMEN: Soft , mild lower abdominal tenderness EXTREMITIES: No edema feet - Labs CBC & Chem 7: 02/06/24 05:54 02/06/24 05:54 Labs: Abnormal Lab Results - Last 24 Hours (Table) 02/05/24 02/05/24 Range/Units 02:56 02:56 WBC 18.11 H (4.50-10.00) X 10*3/uL RBC 3.79 L (4.40-5.60) X 10*6/uL Hgb 10.9 L (13.0-17.0) g/dL Hct 35.5 L (39.6-50.0) % MCHC 30.7 L (32.0-37.0) g/dL Immature Gran # 0.53 H (0.00-0.04) X 10*3/uL Neutrophils # 14.77 H (1.80-7.70) X 10*3/uL Eosinophils # 0.43 H (0.04-0.35) X 10*3/uL Basophils # 0.11 H (0.00-0.10) X 10*3/uL Sodium 132 L (135-145) mmol/L BUN 7.1 L (9.0-27.0) mg/dL BUN/Creatinine Ratio 11.83 L (12.00-20.00) Ratio Calcium 8.3 L (8.7-10.3) mg/dL AST 48 H (14-35) U/L Total Protein 5.3 L (6.2-8.2) g/dL Albumin 2.9 L (3.8-4.9) g/dL Albumin/Globulin Ratio 1.21 L (1.60-3.17) Ratio Assessment and Plan (1) Sepsis Current Visit: Yes Status: Acute Code(s): A41.9 - SEPSIS, UNSPECIFIED ORGANISM SNOMED Code(s): 86819448 (2) Emphysematous cystitis Current Visit: Yes Status: Acute Code(s): N30.80 - OTHER CYSTITIS WITHOUT HEMATURIA SNOMED Code(s): 36619341 (3) Pseudomonas aeruginosa infection Current Visit: Yes Status: Acute Code(s): A49.8 - OTHER BACTERIAL INFECTIONS OF UNSPECIFIED SITE SNOMED Code(s): 24140267 Plan: 1patient presented to hospital with sepsis in this patient who did have fever tachycardia elevated white count meeting criteria for SIRS source is emphysematous cystitis and likely from enteric gram-negative pathogen. 2patient during hospital stay reported stool through his ureter concerning for colovesical fistula General Surgery has done colonoscopy followed by laparotomy sigmoid colectomy small bowel resection and repair of the bladder fistula 3-urine has been finalized with Pseudomonas aeruginosa 4patient is afebrile, the patient white count is slightly up today but overall the patient seems to be doing well hence we will monitor white count closely 5- patient will be continued on cefepime and Flagyl while inpatient patient and continue supportive care Dictation was produced using [employer] dictation software. please excuse any grammatical, word or spelling errors. Time with Patient: Less than 30
--- NOTE | 2024-02-06 12:38 | P.PN ---
Subjective Progress Note Date: 02/06/24 Principal diagnosis: Reason for follow-up is sepsis/UTI Patient is a 43-year-old male with no significant past medical history presenting to the hospital for evaluation of lower abdominal pain and blood in the urine, patient mention he did have symptoms going on with the burning of urination that has been almost for about a month with acute worsening over a day or 2 before presented to the hospital abdominal pain and hematuria patient was noted to be septic secondary to urinary source, with subsequent diagnosis of complicated diverticulitis with a colovesical fistula for which patient is status post laparotomy sigmoid colectomy small bowel resection and repair of the bladder fistula procedure completed on 01/31/2024. On today's evaluation that is 02/06/2024,the patient remains to be afebrile, patient is on room air not requiring supplemental oxygen and denies any shortness of breath no chest pain or cough.Patient denies having any nausea or vomiting, patient abdominal pain is currently controlled and he did have output in his colostomy. The patient white count is down to 16.65 creatinine 0.6 Objective - Vital Signs Vital signs: Vital Signs Temp 98.7 F 02/06/24 08:05 Pulse 88 02/06/24 08:05 Resp 16 02/06/24 08:05 BP 128/84 02/06/24 08:05 Pulse Ox 95 02/06/24 08:05 FiO2 Intake & Output 02/05/24 02/06/24 02/06/24 18:59 06:59 18:59 Intake Total 1450 Output Total 1420 0 2760 Balance 30 0 -2760 Intake: Intake, IV Titration 850 Amount Cefepime 2 gm In Sodium 200 Chloride 0.9% 100 ml @ 25 mls/hr IVPB Q8HR [facility] Rx# :[id number] D5-0.45% NaCl with KCl 450 20Meq/l 1,000 ml @ 75 mls /hr IV .[id number] [facility] Rx#: [id number] metroNIDAZOLE-NS PMX 500 200 mg In Saline 1 100ml.bag @ 100 mls/hr IVPB Q8HR [facility] Rx#:[id number] Oral 600 Output: Drainage 120 60 Right 120 60 Urine 1000 2700 Stool 300 0 Other: Voiding Method Indwelling Catheter Indwelling Catheter Indwelling Catheter # Voids 0 - Exam GENERAL DESCRIPTION: Middle-age male lying in bed in no distress RESPIRATORY SYSTEM: Unlabored breathing , decreased breath sounds at bases HEART: S1 S2 regular rate and rhythm , ABDOMEN: Soft , mild lower abdominal tenderness EXTREMITIES: No edema feet - Labs CBC & Chem 7: 02/06/24 05:54 02/06/24 05:54 Labs: Abnormal Lab Results - Last 24 Hours (Table) 02/06/24 02/06/24 Range/Units 05:54 05:54 WBC 16.65 H (4.50-10.00) X 10*3/uL RBC 3.84 L (4.40-5.60) X 10*6/uL Hgb 11.1 L (13.0-17.0) g/dL Hct 35.0 L (39.6-50.0) % MCHC 31.7 L (32.0-37.0) g/dL Plt Count 441 H (140-440) X 10*3/uL Immature Gran # 0.55 H (0.00-0.04) X 10*3/uL Neutrophils # 13.77 H (1.80-7.70) X 10*3/uL Eosinophils # 0.36 H (0.04-0.35) X 10*3/uL Sodium 130 L (135-145) mmol/L BUN 7.2 L (9.0-27.0) mg/dL Calcium 8.4 L (8.7-10.3) mg/dL Total Protein 5.6 L (6.2-8.2) g/dL Albumin 3.1 L (3.8-4.9) g/dL Albumin/Globulin Ratio 1.24 L (1.60-3.17) Ratio Assessment and Plan (1) Sepsis Current Visit: Yes Status: Acute Code(s): A41.9 - SEPSIS, UNSPECIFIED ORGANISM SNOMED Code(s): 36911000 (2) Emphysematous cystitis Current Visit: Yes Status: Acute Code(s): N30.80 - OTHER CYSTITIS WITHOUT HE MATURIA SNOMED Code(s): 60728555 (3) Pseudomonas aeruginosa infection Current Visit: Yes Status: Acute Code(s): A49.8 - OTHER BACTERIAL INFECTIONS OF UNSPECIFIED SITE SNOMED Code(s): 28467763 Plan: 1patient presented to hospital with sepsis in this patient who did have fever tachycardia elevated white count meeting criteria for SIRS source is emphysematous cystitis and likely from enteric gram-negative pathogen. 2patient during hospital stay reported stool through his ureter concerning for colovesical fistula General Surgery has done colonoscopy followed by laparotomy sigmoid colectomy small bowel resection and repair of the bladder fistula 3-urine has been finalized with Pseudomonas aeruginosa 4patient is afebrile, the patient white count is trending down down to 16,000 today 5- patient will be continued on cefepime and Flagyl will like to make sure the white count is sure the white count is continued trending down before transitioning him to oral antibiotic this was discussed with the [facility] for admit ting team at the bedside multiple questions answered Dictation was produced using [employer] dictation software. please excuse any grammatical, word or spelling errors. Time with Patient: Less than 30
--- NOTE | 2024-02-06 14:48 | P.PN ---
Subjective Progress Note Date: 02/06/24 SURGICAL PROGRESS NOTE CHIEF COMPLAINT: Colovesical fistula HISTORY OF PRESENT ILLNESS: Patient is postop day #6 status post exploratory laparotomy, sigmoid colectomy, small bowel resection and repair of bladder fistula. Patient ambulating in hallway. Pain is controlled. Ostomy is functioning. He is tolerating a full liquid diet. Afebrile. Heart rate 105 during the night. Has normalized. WBC is down from 18-16. JUSTIN drain 60 mL serous output PHYSICAL EXAM: VITAL SIGNS: Reviewed. GENERAL: Well-developed in no acute distress. ABDOMEN: Mildly distended. Incision site clean dry and intact. Ostomy in the left with stool present. JUSTIN drain with serous output NEUROLOGIC: Alert and oriented. Cranial nerves II through XII grossly intact. ASSESSMENT: 1. Diverticulitis with colovesical fistula PLAN: -Advance diet to low fiber -Patient can be discharged from surgical standpoint if tolerating diet. Recommend repeat CBC outpatient. -Antibiotics per infectious disease -Patient to be discharged with Lay catheter. Do not remove Lay catheter due to bladder repair -GI prophylaxis Protonix and DVT prophylaxis subcu heparin Physician [employer] Surveyor note has been reviewed by physician. Signing provider agrees with the documented findings, assessment, and plan of care. I have personally seen and examined the patient, reviewed the ASSISTANT [employer]OTBALL [employer]ACH /PAs history, exam and MDM and agree with the assessment and plan as written. Based on total visit time, I have performed more than 50% of the visit. As above: Patient doing quite well today. Tolerating diet. He is managing his ostomy appliance and drain well. Agree with plans for discharge. Follow-up next week with Dr. Quiles. Keep Lay catheter for now. Continue antibiotics per infectious disease. Objective - Vital Signs Vital signs: Vital Signs Temp 98.7 F 02/06/24 08:05 Pulse 88 02/06/24 08:05 Resp 16 02/06/24 08:05 BP 128/84 02/06/24 08:05 Pulse Ox 95 02/06/24 08:05 FiO2 Intake & Output 02/05/24 02/06/24 02/06/24 18:59 06:59 18:59 Intake Total 1450 Output Total 1420 0 2760 Balance 30 0 -2760 Intake: Intake, IV Titration 850 Amount Cefepime 2 gm In Sodium 200 Chloride 0.9% 100 ml @ 25 mls/hr IVPB Q8HR [facility] Rx# :[id number] D5-0.45% NaCl with KCl 450 20Meq/l 1,000 ml @ 75 mls /hr IV .[id number] [facility] Rx#: [id number] metroNIDAZOLE-NS PMX 500 200 mg In Saline 1 100ml.bag @ 100 mls/hr IVPB Q8HR [facility] Rx#:[id number] Oral 600 Output: Drainage 120 60 Right 120 60 Urine 1000 2700 Stool 300 0 Other: Voiding Method Indwelling Catheter Indwelling Catheter Indwelling Catheter # Voids 0 - Labs CBC & Chem 7: 02/06/24 05:54 02/06/24 05:54 Labs: Abnormal Lab Results - Last 24 Hours (Table) 02/06/24 02/06/24 Range/Units 05:54 05:54 WBC 16.65 H (4.50-10.00) X 10*3/uL RBC 3.84 L (4.40-5.60) X 10*6/uL Hgb 11.1 L (13.0-17.0) g/dL Hct 35.0 L (39.6-50.0) % MCHC 31.7 L (32.0-37.0) g/dL Plt Count 441 H (140-440) X 10*3/uL Immature Gran # 0.55 H (0.00-0.04) X 10*3/uL Neutrophils # 13.77 H (1.80-7.70) X 10*3/uL Eosinophils # 0.36 H (0.04-0.35) X 10*3/uL Sodium 130 L (135-145) mmol/L BUN 7.2 L (9.0-27.0) mg/dL Calcium 8.4 L (8.7-10.3) mg/dL Total Protein 5.6 L (6.2-8.2) g/dL Albumin 3.1 L (3.8-4.9) g/dL Albumin/Globulin Ratio 1.24 L (1.60-3.17) Ratio
[2024-02-06] MEDS: ACETAMINOPHEN TAB 325 MG TAB PO PRN (23:06)
--- NOTE | 2024-02-07 06:45 | P.PN ---
Subjective Progress Note Date: 02/06/24 History of present illness; patient is a 43-year-old gentleman with no significant past medical history who presents the ER because of burning pain while urination. Patient states that he was all right 1 month back when he started noticing that he was having increased frequency of urination and burning while peeing. Patient was also noticing increasing odor in his urine. Patient also complained of hematuria. Patient denies any fever or chills at the time. Patient does not have a PCP and did a telemedicine visit at which time he was prescribed Bactrim and completed the course for 1 week. Following that patient stated that for the last 3 days he noticed that once again he was having burning pain while urination. Patient also complaining of hematuria again. There was also complaint of fever and chills at home. There was no complaint of nausea or vomiting. Denies any abdominal pain. There was no complaint of weight loss. Because of these symptoms patient presented the ER Initial lab work done in the ER showed WBC 7.7, hemoglobin 12.9, sodium 132, potassium 3.8, BUN 10, creatinine 0.74, glucose 120, lactate 1.3, AST 26, ALT 26, UA showed large amount of blood, urine WBC greater than 182, large amount leukocyte esterase CT abdominal pelvis done showed haziness around the urinary bladder with bladder wall prominence and gas in the bladder lumen for gas-forming cystitis/hemorrh agic cystitis Patient admitted to internal medicine service 01/27/2024 Patient is admitted and seen in follow-up this morning continues with significant testicular pain and swelling with redness with urology and infectious disease following. Preliminary culture showing gram-negative bacilli and awaiting finalized cultures to determine discharge antibiotics. Patient to continue with icing the scrotal area and elevating as well as current pain regimen. Monitor for any fevers as patient has been continuously having low- grade temps. Will continue current regimen and await finalized cultures. Patient does not currently have a primary care provider as he is new to the area and will provide resources on discharge. 01/28/2024 Patient is seen in follow-up today continuing to have low-grade temps with infectious disease following and preliminary culture showing gram-negative bacilli on urine awaiting finalized cultures to determine discharge antibiotics. Encouraged increased activity as tolerated and up and walking. Continue with as needed antipyretics. EKG was done and patient is sinus tach likely secondary to continued fevers. 01/29/2024 Patient is seen in follow-up today had a few low-grade temps noted and also white count elevated to 21 and patient reported he felt he was having stool in his urine. Urology reevaluated and general surgery consult was placed as there is concern for colo vesicle fistula. Urine culture finalized with Pseudomonas aeruginosa with infectious disease following and has transition to cefepime. Patient is starting GoLytely prep and will be planning for colonoscopy tomorrow with general surgery. at the bedside with questions and concerns that were answered to the best of our ability 01/30/2024 Patient is seen and evaluated in follow-up today undergoing colonoscopy today showing diverticulitis. Patient with no previous history of diverticulitis although mother and father history of and mother requiring surgical intervention. Patient is maintained on antibiotics in the form of cefepime and Flagyl with infectious disease following and white count has trended down currently at 12 and afebrile this morning. Plan is for possible colectomy on 01/31/2024 and patient will be n.p.o. at midnight tonight. 01/31/2024 Patient seen in follow-up scheduled for surgery with general surgery and plan is for possible colectomy and will await official report. Patient afebrile overnight maintained on antibiotics with infectious disease following along with urology and will continue current regimen. Patient is currently n.p.o. and will await surgery recommendations regarding when to resume diet. 02/01/2024 Patient is seen in follow-up status post sigmoid colectomy and repair of bladder fistula with indwelling Lay catheter. Patient is to continue with indwelling Lay catheter for minimum 10 days per surgery. Multiple consultations including infectious disease, pain management, general surgery, urology following. Patient is continued on IV antibiotics and will continue and monitor clinically. Patient started on clears and will slowly advance as tolerated per surgery. Patient continues with epidural pump and having significant pain per nursing staff attempting to achieve better pain management. Anesthesia follo wing making adjustments to the epidural pump. 02/02/2024 Patient is seen in follow-up with general surgery and infectious disease following. White count is trending down and patient remains afebrile maintained on IV antibiotics. Patient hemoglobin is stable although there was some blood noted in the Lay will monitor as this is to be expected given surgery. Patient has been up and ambulating and encouraged increase activity as tolerated including sitting in the chair more frequently. Patient will continue on clear liquids per surgery no reports of gas passing other than gas bloating and pressure and no bowel movement yet 02/03/2024 Patient is seen in follow-up this morning currently sitting up in the chair and reports has been up and walking. Continuing to use incentive spirometer with infectious disease and general surgery and urology following. Patient continues with indwelling Lay catheter and will continue for at least 10 days. Urine is yellow and producing adequate urine. Patient is maintained on clear liquids and tolerating with continued abdominal discomfort. Ostomy nurse for education later today. No stool or gas from the ostomy as of yet. White count is nelia nding down and patient remains afebrile. Patient will continue on antibiotics with infectious disease following. 02/06/2024 Patient is seen in follow-up this morning with no acute overnight issues noted. Patient is having stool in the ostomy and has been receiving education with the ostomy nurse. Patient continues on indwelling Lay catheter and will continue per surgery. Patient diet is being advanced to full liquids and is maintained on antibiotics with infectious disease following. Patient and are extremely anxious to get home and asking when they can be discharged. White count remains elevated and will repeat labs in a.m. and discuss further with infectious disease regarding discharge planning. Plan is for home with oral antibiotics hopefully. General surgery is clearing the patient once cleared by other consultations for discharge home. Review of systems: Constitutional: No reports of fatigue, no fever today, less anxious Cardiovascular: No reports of chest pain or palpitations Respiratory: No reports of shortness of breath or cough GI: No reports of nausea, vomiting, or diarrhea, passing gas and having stool in the ostomy : No reports of dysuria or retention, has some scrotal swelling and discomfort but is improving, continues with indwelling Lay catheter per surgery for bladder repair Neurovascular: reports of generalized weakness All medications have been reviewed PHYSICAL EXAMINATION: GENERAL: The patient is alert and oriented x3, up and walking the halls. Well developed, well nourished. HEENT: Pupils are round and equally reacting to light. EOMI. No scleral icterus. No conjunctival pallor. Normocephalic, atraumatic. No pharyngeal erythema. No thyromegaly. CARDIOVASCULAR: S1 and S2 present. No murmurs, rubs, or gallops. PULMONARY: Diminished breath sounds bilaterally otherwise chest is clear to auscultation, no wheezing or crackles. ABDOMEN: Soft, tender, nondistended, normoactive bowel sounds. No palpable organomegaly. stool and gas noted in the ostomy MUSCULOSKELETAL: No joint swelling or deformity. EXTREMITIES: No cyanosis, clubbing, or pedal edema. NEUROLOGICAL: Gross neurological examination did not reveal any focal deficits. Diffusely weak SKIN: No rashes. Pale Assessment: Sepsis multifactorial, present on admission likely secondary to diverticulitis with a colovesical fistula causing a urinary tract infection, cultures finalized Pseudomonas aeruginosa Acute hemorrhagic cystitis Stool noted in the urine, concerns for possible colovesical fistula, status post colonoscopy revealing diverticulitis and status post sigmoid colectomy with ostomy as well as urinary bladder repair today 01/31/2024. Strong family history of diverticulitis in mother and father GI prophylaxis DVT prophylaxis Full code Plan: Patient is continued on IV antibiotics with infectious disease following and urine cultures finalized with Pseudomonas aeruginosa. Antibiotics have been transitioned to cefepime and Flagyl and will continue. White count remains elevated although patient is afebrile. Will follow-up with repeat labs and monitor if white count is trending down. Monitor for any further fevers Urology following and will need outpatient follow-up General surgery following and patient is status post colonoscopy with diverticulitis noted and underwent sigmoid colectomy, ostomy with urinary bladder fissure repair on 01/31/2024. Continue pain management and avoid IV narcotics if possible. Patient does have indwelling Lay catheter And is to continue per surgery without removing for minimum 10 days. Only remove Lay catheter if cleared by general surgery Continue to ice the scrotal area and elevate as tolerated as there continues to be some, swelling, and discomfort Follow-up on repeat labs and replace electrolytes per protocol. White count remains elevated and will follow-up with repeat labs. Monitor for any further fevers Continue to encourage incentive spirometer at least 10 times every hour while awake Encouraged increase activity as tolerated and patient has been walking the halls frequently Overall prognosis is guarded To discuss with other consultations regarding discharge planning possibly in the next 24 to 48 hours The impression and plan of care has been dictated by Jessica Rivera, Nurse Practitioner as directed. Dr. Peter MD I have performed a history and examination and MDM of this patient, discussed the same with the dictator, and agree with the dictator's assessment and plan as written ,documented as a scribe. Based on total visit time, I have performed more than 50% of the visit. Objective - Vital Signs Vital signs: Vital Signs Temp 99.4 F 02/07/24 01:54 Pulse 104 H 02/07/24 01:54 Resp 14 02/07/24 01:54 BP 122/74 02/07/24 01:54 Pulse Ox 96 02/07/24 01:54 FiO2 Intake & Output 02/06/24 02/06/24 02/07/24 06:59 18:59 06:59 Intake Total 400 540 Output Total 0 2990 3965 Balance 0 -2590 -3425 Weight 65.771 kg Intake: Intake, IV Titration 400 Amount Cefepime 2 gm In Sodium 200 Chloride 0.9% 100 ml @ 25 mls/hr IVPB Q8HR [facility] Rx# :[id number] metroNIDAZOLE-NS PMX 500 200 mg In Saline 1 100ml.bag @ 100 mls/hr IVPB Q8HR [facility] Rx#:[id number] Oral 540 Output: Drainage 90 100 Right 90 100 Urine 2700 3865 Stool 0 200 Other: Voiding Method Indwelling Catheter Indwelling Catheter Indwelling Catheter # Voids 0 0 # Bowel Movements 0 - Labs CBC & Chem 7: 02/06/24 05:54 02/06/24 05:54 Labs: Abnormal Lab Results - Last 24 Hours (Table) 02/06/24 02/06/24 Range/Units 05:54 05:54 WBC 16.65 H (4.50-10.00) X 10*3/uL RBC 3.84 L (4.40-5.60) X 10*6/uL Hgb 11.1 L (13.0-17.0) g/dL Hct 35.0 L (39.6-50.0) % MCHC 31.7 L (32.0-37.0) g/dL Plt Count 441 H (140-440) X 10*3/uL Immature Gran # 0.55 H (0.00-0.04) X 10*3/uL Neutrophils # 13.77 H (1.80-7.70) X 10*3/uL Eosinophils # 0.36 H (0.04-0.35) X 10*3/uL Sodium 130 L (135-145) mmol/L BUN 7.2 L (9.0-27.0) mg/dL Calcium 8.4 L (8.7-10.3) mg/dL Total Protein 5.6 L (6.2-8.2) g/dL Albumin 3.1 L (3.8-4.9) g/dL Albumin/Globulin Ratio 1.24 L (1.60-3.17) Ratio
[2024-02-07 07:40] VITALS: BP 129/78; PULSE 107; RESP 16; TEMP 99.9
[2024-02-07 08:42] LABS: Basophils # (A) 0.07 X 10*3/uL (0.00-0.10); Basophils % (A) 0.7 %; Eosinophils # (A) 0.14 X 10*3/uL (0.04-0.35); Eosinophils % (A) 1.4 %; HCT 35.1 % (39.6-50.0); HGB 11.5 g/dL (13.0-17.0); Lymphocytes # (A) 0.95 X 10*3/uL (0.90-5.00); Lymphocytes % (A) 9.5 %; MCH 29.9 pg (27.0-32.0); MCHC 32.8 g/dL (32.0-37.0); MCV 91.2 FL (80.0-97.0); Mean Platelet Volume 9.3 FL (9.5-12.2); Monocytes # (A) 0.87 X 10*3/uL (0.20-1.00); Monocytes % (A) 8.7 %; NRBC Per 100 WBC 0 X 10*3/uL (0.00-0.01); Neutrophils # (A) 7.63 X 10*3/uL (1.80-7.70); Neutrophils % (A) 76.5 %; Platelet Count 371 X 10*3/uL (140-440); RBC 3.85 X 10*6/uL (4.40-5.60); RDW 14.7 % (11.5-14.5); WBC 9.98 X 10*3/uL (4.50-10.00)
--- NOTE | 2024-02-07 12:18 | P.PN ---
Subjective Progress Note Date: 02/07/24 SURGICAL PROGRESS NOTE CHIEF COMPLAINT: Colovesical fistula HISTORY OF PRESENT ILLNESS: Patient is postop day #7 status post exploratory laparotomy, sigmoid colectomy, small bowel resection and repair of bladder fistula. Patient's pain is controlled. Ostomy is functioning. He feels great. He has been up and ambulating. Tolerating low fiber diet. He wants to be discharged home. His white count has normalized. Patient did have a fever during the night of 101.5. Patient reports that he was laying in bed with his and had a heating pad that caused him to feel warm. Patient was tachycardi c during the night. Now he is only mildly tachycardic. PHYSICAL EXAM: VITAL SIGNS: Reviewed. GENERAL: Well-developed in no acute distress. ABDOMEN: Mildly distended. Incision site clean dry and intact. Ostomy in the left with stool present. JUSTIN drain with serosanguineous output NEUROLOGIC: Alert and oriented. Cranial nerves II through XII grossly intact. ASSESSMENT: 1. Diverticulitis with colovesical fistula PLAN: -Patient can be discharged from surgical standpoint with outpatient follow-up -Continue low fiber diet -Antibiotics per infectious disease -Patient to be discharged with Lay catheter and JUSTIN drain -GI prophylaxis Protonix and DVT prophylaxis subcu heparin Physician Digital Product Manager note has been reviewed by physician. Signing provider agrees with the documented findings, assessment, and plan of care. I have personally seen and examined the patient, reviewed the PICKLE SORTER /PAs history, exam and MDM and agree with the assessment and plan as written. Based on total visit time, I have performed more than 50% of the visit. As above: Patient feels well today. Quite anxious for discharge. He did have a fever last night with some mild tachycardia. Patient states he was using a heating pad that was the etiology for this. His incision is clean and dry without erythema. He is tolerating his diet. JUSTIN drain is serous. I would be comfortable with discharge given the patient's clinical appearance. Follow-up as outpatient. Objective - Vital Signs Vital signs: Vital Signs Temp 99.9 F H 02/07/24 07:38 Pulse 107 H 02/07/24 07:38 Resp 16 02/07/24 07:38 BP 129/78 02/07/24 07:38 Pulse Ox 97 02/07/24 07:38 FiO2 Intake & Output 02/06/24 02/07/24 02/07/24 18:59 06:59 18:59 Intake Total 400 540 Output Total 2990 3965 Balance -1015 -2838 Weight 65.771 kg Intake: Intake, IV Titration 400 Amount Cefepime 2 gm In Sodium 200 Chloride 0.9% 100 ml @ 25 mls/hr IVPB Q8HR [facility] Rx# :[id number] metroNIDAZOLE-NS PMX 500 200 mg In Saline 1 100ml.bag @ 100 mls/hr IVPB Q8HR [facility] Rx#:[id number] Oral 540 Output: Drainage 90 100 Right 90 100 Urine 2700 3865 Stool 200 Other: Voiding Method Indwelling Catheter Indwelling Catheter Indwelling Catheter # Voids 0 # Bowel Movements 0 - Labs CBC & Chem 7: 02/07/24 04:09 02/06/24 05:54 Labs: Abnormal Lab Results - Last 24 Hours (Table) 02/07/24 Range/Units 04:09 RBC 3.85 L (4.40-5.60) X 10*6/uL Hgb 11.5 L (13.0-17.0) g/dL Hct 35.1 L (39.6-50.0) % RDW 14.7 H (11.5-14.5) % MPV 9.3 L (9.5-12.2) FL Immature Gran # 0.32 H (0.00-0.04) X 10*3/uL
--- NOTE | 2024-02-07 22:14 | P.PN ---
Subjective Progress Note Date: 02/07/24 Principal diagnosis: Reason for follow-up is sepsis/UTI Patient is a 43-year-old male with no significant past medical history presenting to the hospital for evaluation of lower abdominal pain and blood in the urine, patient mention he did have symptoms going on with the burning of urination that has been almost for about a month with acute worsening over a day or 2 before presented to the hospital abdominal pain and hematuria patient was noted to be septic secondary to urinary source, with subsequent diagnosis of complicated diverticulitis with a colovesical fistula for which patient is status post laparotomy sigmoid colectomy small bowel resection and repair of the bladder fistula procedure completed on 01/31/2024. On today's evaluation that is 02/07/2024, the patient did have low-grade fever of 99.9 F this morning, however the patient denies having any chills patient denies having any headache or URI symptoms no chest pain shortness of breath or cough the patient abdominal pain has significantly improved denies having nausea or vomiting and did have output in his colostomy patient is feeling better wants to go home. Patient white count normalized to 9.98 blood culture have been negative Objective - Vital Signs Vital signs: Vital Signs Temp 99.9 F H 02/07/24 07:38 Pulse 107 H 02/07/24 07:38 Resp 16 02/07/24 07:38 BP 129/78 02/07/24 07:38 Pulse Ox 97 02/07/24 07:38 FiO2 Intake & Output 02/06/24 02/07/24 02/07/24 18:59 06:59 18:59 Intake Total 400 540 Output Total 2990 3965 Balance -2590 -3424 Weight 65.771 kg Intake: Intake, IV Titration 400 Amount Cefepime 2 gm In Sodium 200 Chloride 0.9% 100 ml @ 25 mls/hr IVPB Q8HR [facility] Rx# :[id number] metroNIDAZOLE-NS PMX 500 200 mg In Saline 1 100ml.bag @ 100 mls/hr IVPB Q8HR [facility] Rx#:[id number] Oral 540 Output: Drainage 90 100 Right 90 100 Urine 2700 3865 Stool 200 Other: Voiding Method Indwelling Catheter Indwelling Catheter Indwelling Catheter # Voids 0 # Bowel Movements 0 - Exam GENERAL DESCRIPTION: Middle-age male lying in bed in no distress RESPIRATORY SYSTEM: Unlabored breathing , decreased breath sounds at bases HEART: S1 S2 regular rate and rhythm , ABDOMEN: Soft , mild lower abdominal tenderness EXTREMITIES: No edema feet - Labs CBC & Chem 7: 02/07/24 04:09 02/06/24 05:54 Labs: Abnormal Lab Results - Last 24 Hours (Table) 02/07/24 Range/Units 04:09 RBC 3.85 L (4.40-5.60) X 10*6/uL Hgb 11.5 L (13.0-17.0) g/dL Hct 35.1 L (39.6-50.0) % RDW 14.7 H (11.5-14.5) % MPV 9.3 L (9.5-12.2) FL Immature Gran # 0.32 H (0.00-0.04) X 10*3/uL Assessment and Plan (1) Sepsis Status: Acute Code(s): A41.9 - SEPSIS, UNSPECIFIED ORGANISM SNOMED Code(s): 97372778 (2) Emphysematous cystitis Status: Acute Code(s): N30.80 - OTHER CYSTITIS WITHOUT HEMATURIA SNOMED Code(s): 04550487 (3) Pseudomonas aeruginosa infection Status: Acute Code(s): A49.8 - OTHER BACTERIAL INFECTIONS OF UNSPECIFIED SITE SNOMED Code(s): 06378074 Plan: 1patient presented to hospital with sepsis in this patient who did have fever tachycardia elevated white count meeting criteria for SIRS source is emphysematous cystitis and likely from enteric gram-negative pathogen. 2patient during hospital stay reported stool through his ureter concerning for colovesical fistula General Surgery has done colonoscopy followed by laparotomy sigmoid colectomy small bowel resection and repair of the bladder fistula 3-urine has been finalized with Pseudomonas aeruginosa 4patient did have low-grade fever this morning however the patient has having any chills the patient white count normalized patient has been insisting on going home and patient be cleared for discharge by general surgery we will recommend a 2-week course of oral Cipro 700 mg twice a day and Flagyl 500 mg 3 times a day patient has been advised if develops fever at home more abdominal pain or nausea vomiting that he needs to come back to the hospital right away at the bedside multiple questions answered Dictation was produced using [employer] software. please excuse any grammatical, word or spelling errors. Time with Patient: Less than 30
--- NOTE | 2024-02-11 12:16 | P.DS ---
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 Do you want consulting provider notified?: Yes Consult Physician Urgent Consulting Provider: Christofer Claros Consult Reason/Comments: Emphysematous cystitis, sepsis Do you want consulting provider notified?: Yes 01/30/24 08:04 Consult Physician Routine Consulting Provider: Rogers Quiles Consult Reason/Comments: Colovesical fistula Do you want consulting provider notified?: Already Contacted Primary care physician: Stated None Hospital Course: Final diagnosis Sepsis multifactorial, present on admission secondary to diverticulitis with a colovesical fistula causing a urinary tract infection, cultures finalized Pseudomonas aeruginosa Acute hemorrhagic cystitis Stool noted in the urine, concerns for possible colovesical fistula, status post colonoscopy revealing diverticulitis and status post sigmoid colectomy with ostomy as well as urinary bladder repair today 01/31/2024. Strong family history of diverticulitis in mother and father GI prophylaxis DVT prophylaxis Full code Discharge disposition Patient is being discharged in a stable condition with guarded prognosis to home. Patient will follow-up with Dr. Jeff Green in the outpatient setting upon discharge. Patient is to continue with Cipro and Flagyl and close outpatient follow-up with general surgery, urology, infectious disease as scheduled. Total time taken is greater than 35 minutes. Hospital course This is a 43-year-old male who was recently admitted with sepsis initially thought cystitis with a urinary tract infection although patient started having stool noted in the urine and underwent colonoscopy revealing significant diverticulitis with concerns of colovesical fistula. Patient is status post sig moid colectomy with ostomy and urinary bladder repair. Patient is continued with indwelling Lay catheter and will continue and have urology outpatient follow-up. Patient to continue with indwelling Lay catheter per surgery until cleared by surgery for appropriate bladder repair. Patient will go on oral antibiotics per ID recommendations with close outpatient follow-up. Patient has been encouraged and instructed to continue using incentive spirometer and continue current regimen. Patient currently has no primary care provider no insurance and family is working on insurance coverage. Patient has been cleared by consultations has remained afebrile and white count has trended down. Please refer to other consultation notes for further HPI. Currently no reports of chest pain, shortness of breath, or palpitations. Patient is afebrile. No reports of nausea or vomiting and patient is tolerating diet. Patient will be discharged home today. Guarded prognosis given significant comorbidities Physical exam: Gen: This is a 43-year-old male who is awake, alert and oriented x 3, well- developed, thin built HEENT: Head is atraumatic, normocephalic. Pupils equal, round. Sclerae is an icteric. NECK: Supple. No JVD. No lymphadenopathy. No thyromegaly. LUNGS: Clear to auscultation. No wheezes or rhonchi. No intercostal retractions. HEART: Regular rate and rhythm. No murmur. ABDOMEN: Soft. Bowel sounds are present. No masses. Mild tenderness. Ostomy noted and functioning EXTREMITIES: No pedal edema. No calf tenderness. NEUROLOGICAL: Patient is awake, alert and oriented x3. Cranial nerves 2 through 12 are grossly intact. Diffusely weak Please refer to medication reconciliation sheet for a list of medications. The impression and plan of care has been dictated by Jessica Rivera, Nurse Practitioner as directed. Dr. Peter MD I have performed a history and examination and MDM of this patient, discussed the same with the dictator, and agree with the dictator's assessment and plan as written ,documented as a scribe. Based on total visit time, I have performed more than 50% of the visit. Patient Condition at Discharge: Fair Plan - Discharge Summary Discharge Rx Participant: No New Discharge Prescriptions: New HYDROcodone/APAP 5-325MG [[place] 5-325] 1 tab PO Q6HR PRN 3 Days #12 tab PRN Reason: Pain Ciprofloxacin HCl [Cipro] 750 mg PO BID 14 Days #28 tab metroNIDAZOLE [Flagyl] 500 mg PO TID 14 Days #42 tab Metoclopramide HCl [Reglan] 5 mg PO TID #60 tablet Sennosides [Senokot] 8.6 mg PO BID #60 tab Acetaminophen Tab [Tylenol] 650 mg PO Q6HR PRN tab PRN Reason: Mild Pain Or Fever > 100.5 Simethicone 40 mg/0.6 ml Drops [Mylicon Drops] 80 mg PO QID #7 ml Discharge Medication List HYDROcodone/APAP 5-325MG [[place] 5-325] 1 tab PO Q6HR PRN 3 Days #12 tab 02/06/24 [Rx] Acetaminophen Tab [Tylenol] 650 mg PO Q6HR PRN tab 02/07/24 [Rx] Ciprofloxacin HCl [Cipro] 750 mg PO BID 14 Days #28 tab 02/07/24 [Rx] Metoclopramide HCl [Reglan] 5 mg PO TID #60 tablet 02/07/24 [Rx] Sennosides [Senokot] 8.6 mg PO BID #60 tab 02/07/24 [Rx] Simethicone 40 mg/0.6 ml Drops [Mylicon Drops] 80 mg PO QID #7 ml 02/07/24 [Rx] metroNIDAZOLE [Flagyl] 500 mg PO TID 14 Days #42 tab 02/07/24 [Rx] Follow up Appointment(s)/Referral(s): Alicia Johnston MD [STAFF PHYSICIAN] - 1 Week (call the office on Saturday02/10/24 ([phone]) to set up a new patient appointment.) Rogers Quiles MD [STAFF PHYSICIAN] - 02/11/24 9:15 am Patient Instructions/Handouts: Hydrocodone/Acetaminophen (By mouth), Low Fiber Diet (DC), Lay Catheter Placement and Care (ED), Urinary Leg Bag (GEN) Activity/Diet/Wound Care/Special Instructions: Ostomy: Merari one piece cut to fit appliance #[id number] Change every 3 to 5 days and as needed for leaks Last changed: 02/03/[address] while taking [place] No lifting over 10 pounds You may shower. No soaking or tub baths for 2 weeks Very light activity until you are reevaluated at your follow up appointment with your surgeon Keep a log of JUSTIN drain output and bring with you to your follow-up appointment Milk/strip drains 2-3 times a day Discharged with Lay catheter Follow-up and establish with primary care provider Keep your scheduled appointment with surgery Monitor for any worsening fevers any increased lethargy any decreased urine output any decreased or changes in stool output and call 911 or nearest ER if symptoms are persistent Continue taking antibiotics as prescribed Follow-up with urology outpatient as well Discharge Disposition: HOME SELF-CARE
== END 2024-02-07 14:50 | disposition home or self-care (01) | DRG 854 ==
LOC: EC 09:16 → 5NMEDONC 11:39
PROVIDERS: ADMIT Internal Medicine; ATTEND Internal Medicine
PROC: 0DJD8ZZ Inspection of Lower Intestinal Tract, Via Natural or Artificial Opening Endoscopic (ICD-10-PCS; 2024-01-30)
PROC: 0DB80ZZ Excision of Small Intestine, Open Approach (ICD-10-PCS; 2024-01-31)
PROC: 0DBP0ZZ Excision of Rectum, Open Approach (ICD-10-PCS; 2024-01-31)
PROC: 0DBN0ZZ Excision of Sigmoid Colon, Open Approach (ICD-10-PCS; 2024-01-31)
PROC: 0TQB0ZZ Repair Bladder, Open Approach (ICD-10-PCS; 2024-01-31)
PROC: 0D1N0Z4 Bypass Sigmoid Colon to Cutaneous, Open Approach (ICD-10-PCS; principal; 2024-01-31 10:45)
DX: A41.9 Sepsis, unspecified organism (principal); K57.32 Diverticulitis of large intestine without perforation or abscess without bleeding; N41.0 Acute prostatitis; N32.1 Vesicointestinal fistula; N30.81 Other cystitis with hematuria; N45.3 Epididymo-orchitis; B96.5 Pseudomonas (aeruginosa) (mallei) (pseudomallei) as the cause of diseases classified elsewhere; E87.6 Hypokalemia
CPT/HCPCS: 36415; 45330; 71045; 74176; 80048; 80053; 81001; 83605; 83735; 84145; 85025; 85027; 85610; 85652; 85730; 86140; 86850; 86900; 86901; 87040; 87077; 87086; 87186; 88305; 88307; 96361; 96365; 96366; 96375; 99285